=== PATIENT | male | born 1950 | race Caucasian/White ===

== ENCOUNTER → 2020-06-23 | Outpatient (CLI) | payer BC, MEDICARE ==
[~2020-06-23] MED LIST: AMLO10TA82 PO; ASP81CT PO; BNZ40T PO; HYDR50TA3 PO; MTP100TCR PO; WRF5T PO; [UNRECOGNIZED DRUG - OTHER]; coumadin; invanz; lovenox
== END ==
LOC: ORTHO 08:28
PROVIDERS: ATTEND Orthopaedic Surgery
DX: M17.11 Unilateral primary osteoarthritis, right knee (principal); I10 Essential (primary) hypertension
CPT/HCPCS: 99203

== ENCOUNTER → 2021-01-01 | Outpatient (CLI) | payer MEDICARE ==
--- NOTE | 2021-01-01 10:48 | Diagnostic Imaging Report ---
PROCEDURE: CT head without contrast. TECHNIQUE: Multiple contiguous axial images were obtained through the brain without the use of intravenous contrast. Auto Exposure Controls were utilized during the CT exam to meet ALARA standards for radiation dose reduction. INDICATION: Vascular headaches. There are no prior studies available for comparison. There is no mass, shift of midline or hemorrhage to suggest an acute intracranial abnormality. The normal tentorial blush is evident. The ventricles are not abnormally dilated. There are vague areas of low density in the periventricular white matter bilaterally. These findings are nonspecific but may be related to encephalomalacia from microvascular ischemia. Cortical atrophy is also seen. The degree of atrophy is consistent with the patient's age. The bone windows show no evidence for a skull fracture or for a destructive lesion. The orbits are symmetrical and within normal limits. There is prominent retention cyst in the floor of the right maxillary antrum. The sinuses are otherwise generally clear. IMPRESSION: 1. There is no evidence for an acute intracranial abnormality. 2. If clinical concern regarding an underlying abnormality persists, then MRI would be recommended for further study. 3. There are senescent changes including cortical atrophy and periventricular encephalomalacia. Dictated by: Dictated on workstation # [id number]
== END ==
LOC: RAD 09:53
PROVIDERS: ATTEND Internal Medicine
DX: G44.1 Vascular headache, not elsewhere classified (principal); G31.1 Senile degeneration of brain, not elsewhere classified; G93.89 Other specified disorders of brain
CPT/HCPCS: 70450

== ENCOUNTER 2021-02-06 20:44 | Emergency (ER) | payer MEDICARE, OTHER ==
[~2021-02-06] VITALS: Ht 172.7 cm; Wt 87.0 kg
[2021-02-06] MEDS ORDERED: TETANUS,DIPTH,PERTUSS P/F (BOOSTRIX) 0.5 ML VIAL IM ONE (21:45)
[2021-02-06] MEDS ORDERED: LIDOCAINE 1% INJ 20 ML 20 ML VIAL INJ ONE (21:45)
--- NOTE | 2021-02-06 21:51 | ED Fall/Injury ---
General Chief Complaint: Laceration Stated Complaint: FACIAL LAC Nursing Triage Note: Pt ambulatory to ED. Pt reports "face planting" on the road at approximately 1830 this evening. Pt reports taking two tylenol at 1930. Pt reports being concerned because pt takes blood thinners. Pt reports difficulty controlling bleeding. Pt has dressing in place at time of arrival and bleeding is controlled at this time. History of Present Illness Date Seen by Provider: February 06, 2021 Time Seen by Provider: 21:35 Initial Comments 70-year-old male was outside walking at approximately 1830 tonight when he stumbled and fell landing on his nose. He is on Xarelto after having a valve replacement on his heart approximately 2 years ago. The bleeding has persisted from the nose. He denies any loss of consciousness, seizure activity, headache vision changes, or nausea/vomiting. Occurred: this evening Severity: mild Injuries/Pain Location: face Loss of Consciousness: no loss of consciousness Associated Symptoms (Fall): Denies Symptoms; No Confusion, No Dizziness, No Lightheadedness, No Neck Pain, No Slurred Speech, No Trouble Walking, No Vision Changes Allergies and Home Medications Allergies Coded Allergies: No Known Drug Allergies (Unverified , 08/02/10) Home Medications Amlodipine Besylate 10 Mg Tablet, 1 EACH PO DAILY, (Reported) Aspirin 81 Mg Chew, 81 MG PO DAILY, (Reported) Cephalexin 500 Mg Tablet, 500 MG PO TID Prescribed by: MOUNA HERBERT on 02/06/212227 Warfarin Sodium 5 Mg Tablet, 1 EACH PO DAILY, (Reported) Patient Home Medication List Home Medication List Reviewed: Yes Review of Systems Review of Systems Constitutional: no symptoms reported, see HPI Psychiatric/Neurological: See HPI, Other (Abrasion and laceration to nose and forehead) All Other Systems Reviewed Negative Unless Noted: Yes Past Zrksirb-Chcumr-Qokdgx Hx Past Med/Social Hx: Reviewed Nursing Past Med/Soc Hx Patient Social History Alcohol Use: Denies Use 2nd Hand Smoke Exposure: No Recent Infectious Disease Expo: No Recent Hopitalizations: Yes Past Medical History Surgeries: Yes (CARDIAC CATH, VASECTOMY, valve replacement) Respiratory: No Cardiac: Yes (pacemaker) Neurological: Yes Reproductive Disorders: Yes Gastrointestinal: Yes Musculoskeletal: No Endocrine: No Psychosocial: No Blood Disorders: No Physical Exam Vital Signs Vital Signs - First Documented 02/06/21 21:16 Temp 37.0 Pulse 78 Resp 20 B/P (MAP) 121/83 (96) Pulse Ox 95 O2 Delivery Room Air Capillary Refill : Less Than 3 Seconds Height, Weight, BMI Height: '" Weight: lbs. oz. kg; 29.00 BMI Method:Stated General Appearance: WD/WN, no apparent distress HEENT: PERRL/EOMI, TMs normal, other (nares patent, bilat. ) Neck: non-tender, full range of motion, supple, normal inspection Cardiovascular: normal peripheral pulses, regular rate, rhythm, no murmur Respiratory: chest non-tender, lungs clear, normal breath sounds Gastrointestinal: normal bowel sounds, non tender, soft Extremities: normal range of motion, non-tender, normal inspection Neurologic/Psychiatric: boom storage II-XII nml as tested, no motor/sensory deficits, alert, normal mood/affect, oriented x 3 Skin: normal color, warm/dry, other (Superficial abrasion with trace bleeding to the tip of the nose and forehead, laceration to the bridge of the nose with active bleeding.) Sandra Coma Score Best Eye Response: (4) Open Spontaneously Best Verbal Response: (5) Oriented Best Motor Response: (6) Obeys Commands [place] Total: 15 Procedures/Interventions Wound Location: Nose Wound Length (cm): 1 Wound's Depth, Shape: into muscle (V shaped) Wound Explored: clean Irrigated w/ Saline (ccs): 500 Betadine Prep?: Yes Anesthesia: 1% Lidocaine Volume Anesthetic (ccs): 1 Suture: Ethlion Suture Size: 5-0 Number of Sutures: 4 Sterile Dressing Applied?: Yes Progress Wound well approximated, patient tolerated procedure well. No further bleeding. Bulky sterile dressing applied. Progress/Results/Core Measures Results/Orders My Orders Orders - MOUNA HERBERT Ct Head/Maxillofacial Wo (02/06/21 21:41) Dipht,Pertuss(Acell),Tet Adult (Boostrix (02/06/21 21:45) Lidocaine 1% Inj 20 Ml (Xylocaine 1% Inj (02/06/21 21:45) Rx-Cephalexin Capsule (Rx-Keflex Capsule (02/06/21 22:31) Medications Given in ED Current Medications Medications Dose Ordered Sig/Issac Route Start Time Stop Time Status Last Admin Dose Admin Diphtheria/ Tetanus/Acell Pertussis 0.5 ml ONCE ONCE IM 02/06/21 21:45 02/06/21 21:46 DC 02/06/21 22:25 0.5 ML Lidocaine HCl 20 ml ONCE ONCE INJ 02/06/21 21:45 02/06/21 21:46 DC 02/06/21 22:20 1.5 ML Vital Signs/I&O 02/06/21 21:16 Temp 37.0 Pulse 78 Resp 20 B/P (MAP) 121/83 (96) Pulse Ox 95 O2 Delivery Room Air Blood Pressure Mean: 96 Progress Progress Note : Time: 21:35 Progress Note Patient seen and evaluated, wound irrigated with normal saline. Will give tetanus vaccine. Discussed risk versus benefits of CT head and maxillofacial, patient and agreeable to this since he is on Xarelto. [address] results with the patient and his . Stressed the importance of follow-up with Dr. Jose or Dr. Zamora because of the fracture. Discharge instructions and return precautions/evaluation discussed with the patient. Diagnostic Imaging Diagonstic Imaging: CT Plain Films/CT/US/NM/MRI: facial bones, head Comments NAME: [facility] SOL[facility]ON [facility] REC#: [id number] PT STATUS: REG ER : 1950 PHYSICIAN: MOUNA HERBERT ADMIT DATE: 02/06/21/ER Signed Date of Exam:02/06/21 CT HEAD/MAXILLOFACIAL WO INDICATION: Fall with head and facial pain TECHNIQUE: Multiple contiguous axial images were obtained through the head and facial bones without the use of intravenous contrast. Auto Exposure Controls were utilized during the CT exam to meet ALARA standards for radiation dose reduction. COMPARISON is made to prior head CT of 01/01/2021 CT brain findings: There were no extra-axial fluid collections. No intracranial hemorrhage. No intracranial mass or mass effect. There are mild diffuse atrophic changes. There are patchy low-density changes in the deep white matter compatible with chronic ischemic change in this age group. There is no acute intracranial process. Calvarial windows show no calvarial fracture. CT maxillofacial findings: There are comminuted nasal fractures anteriorly. The remaining bony structures appear intact. There is a retention cyst or polyp in the right maxillary sinus. Remaining sinuses are clear. Orbital contents appear unremarkable. IMPRESSION: CT brain demonstrates chronic changes as above with no acute intracranial abnormality. CT maxillofacial demonstrates comminuted bilateral nasal fractures anteriorly. There are no other fractures visualized. There is a retention cyst versus polyp in the right maxillary sinus. Orbital contents appear unremarkable. Dictated by: Dictated on workstation # [id number] Dict: 02/06/212199 Trans: 02/06/212205 [facility] [id number] Interpreted by: REID HERNANDEZ MD Electronically signed by: REID HERNANDEZ MD 02/06/212205 Departure Impression Primary Impression: Fall Qualified Codes: W19.XXXA - Unspecified fall, initial encounter Additional Impressions: Nasal bone fx-open Qualified Codes: S02.2XXB - Fracture of nasal bones, initial encounter for open fracture Laceration of nose Qualified Codes: S01.21XA - Laceration without foreign body of nose, initial encounter Abrasion of face Qualified Codes: S00.81XA - Abrasion of other part of head, initial encounter Disposition: HOME, SELF-CARE Condition: Improved Departure-Patient Inst. Decision time for Depature: 22:20 Referrals: AL JOSE MD, MINDI DO (PCP/Family) Primary Care Physician MOUSTAPHA ZAMORA DDS Patient Instructions: Skin Abrasions (DC), Laceration Repair With Karine (DC), Laceration Repair With Glue (DC), Facial Fracture Add. Discharge Instructions: Call Dr. Jose or Dr. Zamora's office tomorrow for a follow-up appointment. Take antibiotics as prescribed. Apply triple antibiotic ointment to the abrasions. Continue all of your home medications. Apply ice to your nose for 20 minutes every 2 hours for swelling or pain. Alternate between Tylenol 650 mg and ibuprofen 600 mg every 4 hours for pain. Keep the wounds clean and dry, you may apply a Band-Aid or dressing as needed. You may shower as normal, clean the wound with peroxide after showering. Do not submerge the wounds in standing water such as a pool, hot tub or persaud. Return to the emergency department in 7 days for suture removal or see your primary care provider. Watch for signs of infection: Redness, swelling, fever, discolored drainage or foul-smelling drainage. Return to the emergency department for new, urgent healthcare needs. All discharge instructions reviewed with patient and/or family. Voiced understanding. Scripts Cephalexin (Cephalexin) 500 Mg Tablet 500 MG PO TID, #21 TAB 0 Refills Prov: MOUNA HERBERT 02/06/21 MOUNA HERBERT February 06, 2021 21:51
--- NOTE | 2021-02-06 22:06 | Diagnostic Imaging Report ---
INDICATION: Fall with head and facial pain TECHNIQUE: Multiple contiguous axial images were obtained through the head and facial bones without the use of intravenous contrast. Auto Exposure Controls were utilized during the CT exam to meet ALARA standards for radiation dose reduction. COMPARISON is made to prior head CT of 01/01/2021 CT brain findings: There were no extra-axial fluid collections. No intracranial hemorrhage. No intracranial mass or mass effect. There are mild diffuse atrophic changes. There are patchy low-density changes in the deep white matter compatible with chronic ischemic change in this age group. There is no acute intracranial process. Calvarial windows show no calvarial fracture. CT maxillofacial findings: There are comminuted nasal fractures anteriorly. The remaining bony structures appear intact. There is a retention cyst or polyp in the right maxillary sinus. Remaining sinuses are clear. Orbital contents appear unremarkable. IMPRESSION: CT brain demonstrates chronic changes as above with no acute intracranial abnormality. CT maxillofacial demonstrates comminuted bilateral nasal fractures anteriorly. There are no other fractures visualized. There is a retention cyst versus polyp in the right maxillary sinus. Orbital contents appear unremarkable. Dictated by: Dictated on workstation # [id number]
[2021-02-06] MEDS ORDERED: CEPH500T PO (22:28)
[2021-02-06 22:30] VITALS: BP 121/83
[2021-02-06] MEDS ORDERED: RX-CEPHALEXIN (KEFLEX) 250 MG CAP PPK#4 PO STA (22:31)
== END 2021-02-06 22:30 | disposition home or self-care (01) ==
LOC: EDUNIT# 20:44 → ER 20:46
DX: S02.2XXB Fracture of nasal bones, initial encounter for open fracture (principal); Z23 Encounter for immunization; Z79.01 Long term (current) use of anticoagulants; Z79.82 Long term (current) use of aspirin; W01.0XXA Fall on same level from slipping, tripping and stumbling without subsequent striking against object, initial encounter
CPT/HCPCS: 70450; 70486; 90715

== ENCOUNTER 2021-02-13 12:29 | Emergency (ER) | payer MEDICARE, OTHER ==
[~2021-02-13] VITALS: Ht 172 cm; Wt 88.0 kg
[~2021-02-13 12:29] MED LIST changes: +CEPH500T PO
== END 2021-02-13 13:06 | disposition home or self-care (01) ==
LOC: EDUNIT# 12:29 → ER 12:30
DX: Z48.02 Encounter for removal of sutures (principal)

== ENCOUNTER → 2021-06-13 | Outpatient (CLI) | payer MEDICARE, OTHER ==
--- NOTE | 2021-06-13 15:05 | Diagnostic Imaging Report ---
INDICATION: Arrhythmia. EXAMINATION: Portable chest at 2:36 p.m. FINDINGS: There is a dual-chamber pacemaker with ICD. Heart size and pulmonary vascularity are normal. There is minimal scarring at the right costophrenic angle. There are postoperative changes from aortic valve replacement. IMPRESSION: Postsurgical changes in the chest. There are no infiltrates, effusions, or pneumothoraces. Dictated by: Dictated on workstation # [id number]
--- NOTE | 2021-06-13 16:26 | Diagnostic Imaging Report ---
PROCEDURE: MR imaging of the brain without contrast. TECHNIQUE: Multiplanar, multisequence MR imaging of the brain was performed without contrast. INDICATION: Memory problems. COMPARISON: 02/06/2021. FINDINGS: No acute ischemia, mass, or hemorrhage. Focal and confluent T2 hyperintense signal is seen throughout the periventricular and subcortical white matter. 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 The ventricles and cortical sulci are mildly prominent. The basilar cisterns are symmetric and unremarkable. The sellar and suprasellar regions have a normal appearance. The brainstem and posterior fossa are unremarkable. A mucous retention cyst is seen in the right maxillary sinus. Small bilateral mastoid effusions are present. The globes and orbits are symmetric and unremarkable. The scalp and calvarium have a normal appearance. IMPRESSION: 1. No acute ischemia, mass, or hemorrhage. 2. Chronic microvascular disease throughout the periventricular and subcortical white matter. 3. Generalized parenchymal volume loss. 4. 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 Dictated by: Dictated on workstation # [id number]
== END ==
LOC: RAD 14:45
PROVIDERS: ATTEND Internal Medicine
DX: G31.9 Degenerative disease of nervous system, unspecified (principal); G91.2 (Idiopathic) normal pressure hydrocephalus; I67.89 Other cerebrovascular disease; I49.9 Cardiac arrhythmia, unspecified
CPT/HCPCS: 70551; 71045

== ENCOUNTER 2022-01-23 10:37 | Outpatient (RCR) | payer MEDICARE, OTHER | END 2022-02-02 | disposition home or self-care (01) | PROVIDERS: ATTEND Internal Medicine | DX: R26.81 Unsteadiness on feet (principal) ==

== ENCOUNTER 2022-02-06 11:20 | Outpatient (RCR) | payer MEDICARE, OTHER | END 2022-02-13 09:32 | disposition home or self-care (01) | PROVIDERS: ATTEND Internal Medicine | DX: R26.81 Unsteadiness on feet (principal) ==

== ENCOUNTER 2022-03-11 10:49 | Outpatient (CLI) | payer MEDICARE, OTHER | END 2022-03-11 11:10 | LOC: SLEEP 10:49 | PROVIDERS: ATTEND Otolaryngology Otolaryngology/Facial Plastic Surgery | DX: G47.33 Obstructive sleep apnea (adult) (pediatric) (principal) | CPT/HCPCS: G0399 ==

== ENCOUNTER 2022-09-08 11:18 | Observation (INO) | payer MEDICARE, OTHER ==
[~2022-09-08] VITALS: Ht 175.3 cm; Wt 85.0 kg
[2022-09-08 11:53] LABS: BASOPHILS % (AUTO) 0 % (0-10); EOSINOPHILS # (AUTO) 0.1 10^3/uL (0.0-0.3); EOSINOPHILS % (AUTO) 1 % (0-10); HEMATOCRIT 47 % (40-54); HEMOGLOBIN 16.6 g/dL (13.3-17.7); LYMPHOCYTES # (AUTO) 1.4 10^3/uL (1.0-4.0); LYMPHOCYTES % (AUTO) 16 % (12-44); MEAN CORPUSCULAR HEMOGLOBIN 32 pg (25-34); MEAN CORPUSCULAR HGB CONC 35 g/dL (32-36); MEAN CORPUSCULAR VOLUME 92 fL (80-99); MEAN PLATELET VOLUME 9.7 fL (9.0-12.2); MONOCYTES # (AUTO) 0.4 10^3/uL (0.0-1.0); MONOCYTES % (AUTO) 5 % (0-12); NEUTROPHILS # (AUTO) 6.7 10^3/uL (1.8-7.8); NEUTROPHILS % (AUTO) 76 % (42-75); PLATELET COUNT 211 10^3/uL (130-400); WHITE BLOOD COUNT 8.7 10^3/uL (4.3-11.0)
[2022-09-08 12:05] LABS: INR 1.7 (0.8-1.4); PROTHROMBIN TIME PATIENT 20.6 SEC (12.2-14.7)
[2022-09-08 12:06] LABS: ALBUMIN 3.9 GM/DL (3.2-4.5); POTASSIUM 4.1 MMOL/L (3.6-5.0)
[2022-09-08 12:07] LABS: CALCIUM 9.5 MG/DL (8.5-10.1)
[2022-09-08 12:09] LABS: TOTAL PROTEIN 6.8 GM/DL (6.4-8.2)
[2022-09-08 12:10] LABS: BILIRUBIN,TOTAL 1.5 MG/DL (0.1-1.0)
[2022-09-08 12:12] LABS: CREATININE SERUM 1.73 MG/DL (0.60-1.30)
[2022-09-08 12:15] LABS: MAGNESIUM 1.9 MG/DL (1.6-2.4)
--- NOTE | 2022-09-08 12:15 | ED General ---
General Chief Complaint: Dizziness/Syncope Stated Complaint: WEAKNESS/SYNCOPAL EPISODE/LOW HEART RATE Nursing Triage Note: PT WAS AT [facility] AND HAD A SYNCOPAL EPISODE WITH HEART RATE IN THE 40'S, 3 VALVE REPLACEMENTS, FLU A 08-30 Source of Information: Patient Exam Limitations: No Limitations History of Present Illness Date Seen by Provider: Sep 08, 2022 Time Seen by Provider: 12:00 Initial Comments 72-year-old male with history of valvular heart disease with a pacemaker presents for possible syncopal episode. He was standing in voodoo and became dizzy, sat down. He had been sitting for about 10 minutes then he had a brief period where he appeared to be unresponsive, staring ahead and may pass out. He states he remembers the entire event but he was not responding to his family according to their report. This lasted about a minute to a minute and a half per his daughter's report. He denies any chest pain, shortness of breath. He states he feels back to normal at present. Notably he has had influenza A "since ." He is still feeling generally weak and having body aches. He does endorse decreased p.o. intake. Allergies and Home Medications Allergies Coded Allergies: No Known Drug Allergies (Unverified , 08/02/10) Patient Home Medication List Home Medication List Reviewed: Yes Amlodipine Besylate (Norvasc Tablet) 10 Mg Tablet, 1 EACH PO DAILY, (Reported) Entered as Reported by: FLAQUITO THOMASON on 08/02/105 Aspirin (Aspirin 81 Mg Chew Tab) 81 Mg Chew, 81 MG PO DAILY, (Reported) Entered as Reported by: FLAQUITO THOMASON on 08/02/105 Cephalexin (Cephalexin) 500 Mg Tablet, 500 MG PO TID Prescribed by: MOUNA HERBERT on 02/06/21 2228 Warfarin Sodium (Coumadin) 5 Mg Tablet, 1 EACH PO DAILY, (Reported) Entered as Reported by: REILLY TORRES on 09/23/10 1341 Review of Systems Review of Systems Constitutional: weakness EENTM: no symptoms reported Respiratory: no symptoms reported Cardiovascular: syncope Gastrointestinal: no symptoms reported Genitourinary: no symptoms reported Musculoskeletal: no symptoms reported Skin: no symptoms reported Psychiatric/Neurological: No Symptoms Reported Hematologic/Lymphatic: No Symptoms Reported Immunological/Allergic: no symptoms reported Past Jougagq-Ytrwsf-Rlxipg Hx Patient Social History Tobacco Use?: No Substance use?: No Alcohol Use?: No Immunizations Up To Date Second COVID19 Vaccination Esdras: YES Past Medical History Surgery/Hospitalization HX: 2 HEART VALVES, PACEMEKER, HYPERTENSION, TIA'S Surgeries: Yes (CARDIAC CATH, VASECTOMY, valve replacement) Respiratory: No Cardiac: Yes (pacemaker) Neurological: Yes Reproductive Disorders: Yes Gastrointestinal: Yes Musculoskeletal: No Endocrine: No Psychosocial: No Blood Disorders: No Family Medical History Reviewed Nursing Family Hx No Pertinent Family Hx Physical Exam Vital Signs Vital Signs - First Documented 09/08/22 11:34 Temp 35.9 Pulse 53 Resp 16 B/P (MAP) 99/67 (78) Pulse Ox 97 O2 Delivery Room Air Capillary Refill : Less Than 3 Seconds Height, Weight, BMI Height: '" Weight: lbs. oz. kg; 28.00 BMI Method:Stated General Appearance: No Apparent Distress, WD/WN HEENT: PERRL/EOMI, Normal ENT Inspection, Pharynx Normal Neck: Full Range of Motion, Non Tender, Supple Respiratory: Chest Non Tender, Lungs Clear, Normal Breath Sounds, No Accessory Muscle Use, No Respiratory Distress Cardiovascular: Regular Rate, Rhythm, Systolic Murmur, Other (paced rhythm, frequent PVCs) Gastrointestinal: Normal Bowel Sounds, No Organomegaly, No Pulsatile Mass, Non Tender, Soft Back: Normal Inspection, No CVA Tenderness, No Vertebral Tenderness Extremity: Normal Capillary Refill, Normal Inspection, Normal Range of Motion, Non Tender, No Calf Tenderness Neurologic/Psychiatric: Alert, Oriented x3, No Motor/Sensory Deficits, Normal Mood/Affect, 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 Norm as Tested Skin: Normal Color, Warm/Dry Lymphatic: No Adenopathy Procedures/Interventions Suture Size: 5-0 Progress/Results/Core Measures Suspected Sepsis SIRS Temperature: Pulse: 53 Respiratory Rate: 16 Laboratory Tests 09/08/22 11:44: White Blood Count 8.7 Blood Pressure 99 /67 Mean: 78 Laboratory Tests 09/08/22 11:44: Creatinine 1.73H, INR Comment 1.7H, Platelet Count 211, Total Bilirubin 1.5H Results/Orders Lab Results Laboratory Tests Test 09/08/22 11:44 09/08/22 13:40 Range/Units White Blood Count 8.7 4.3-11.0 10^3/uL Red Blood Count 5.15 4.30-5.52 10^6/uL Hemoglobin 16.6 13.3-17.7 g/dL Hematocrit 47 40-54 % Mean Corpuscular Volume 92 80-99 fL Mean Corpuscular Hemoglobin 32 25-34 pg Mean Corpuscular Hemoglobin Concent 35 32-36 g/dL Red Cell Distribution Width 13.8 10.0-14.5 % Platelet Count 211 130-400 10^3/uL Mean Platelet Volume 9.7 9.0-12.2 fL Immature Granulocyte % (Auto) 2 % Neutrophils (%) (Auto) 76 H 42-75 % Lymphocytes (%) (Auto) 16 12-44 % Monocytes (%) (Auto) 5 0-12 % Eosinophils (%) (Auto) 1 0-10 % Basophils (%) (Auto) 0 0-10 % Neutrophils # (Auto) 6.7 1.8-7.8 10^3/uL Lymphocytes # (Auto) 1.4 1.0-4.0 10^3/uL Monocytes # (Auto) 0.4 0.0-1.0 10^3/uL Eosinophils # (Auto) 0.1 0.0-0.3 10^3/uL Basophils # (Auto) 0.0 0.0-0.1 10^3/uL Immature Granulocyte # (Auto) 0.2 H 0.0-0.1 10^3/uL Prothrombin Time 20.6 H 12.2-14.7 SEC INR Comment 1.7 H 0.8-1.4 Activated Partial Thromboplast Time 32 24-35 SEC Sodium Level 138 135-145 MMOL/L Potassium Level 4.1 3.6-5.0 MMOL/L Chloride Level 105 98-107 MMOL/L Carbon Dioxide Level 20 L 21-32 MMOL/L Anion Gap 13 5-14 MMOL/L Blood Urea Nitrogen 26 H 7-18 MG/DL Creatinine 1.73 H 0.60-1.30 MG/DL Estimat Glomerular Filtration Rate 41 BUN/Creatinine Ratio 15 Glucose Level 133 H 70-105 MG/DL Calcium Level 9.5 8.5-10.1 MG/DL Corrected Calcium 9.6 8.5-10.1 MG/DL Magnesium Level 1.9 1.6-2.4 MG/DL Total Bilirubin 1.5 H 0.1-1.0 MG/DL Aspartate Amino Transf (AST/SGOT) 17 5-34 U/L Alanine Aminotransferase (ALT/SGPT) 21 0-55 U/L Alkaline Phosphatase 71 40-136 U/L Troponin I 0.035 H <0.028 NG/ML Total Protein 6.8 6.4-8.2 GM/DL Albumin 3.9 3.2-4.5 GM/DL My Orders Orders - CHERIE GODINEZ DO Ekg Tracing (09/08/22 11:31) Ns Iv 500 Ml (Sodium Chloride 0.9%) (09/08/22 12:15) Troponin I [place] (09/08/22 13:40) Ed Admission (Communication) (09/08/22 13:45) Vital Signs/I&O 09/08/22 11:34 Temp 35.9 Pulse 53 Resp 16 B/P (MAP) 99/67 (78) Pulse Ox 97 O2 Delivery Room Air Capillary Refill : Less Than 3 Seconds Blood Pressure Mean: 78 ECG EKG : Comment atrial paced rhythm 71 bpm. Wide QRS, prolonged Qtc. Left axis deviation. PVCs. No STEMI. Critical Care Note Critical Care Total Time (minutes) 45 Departure Communication (Admissions) Patient is borderline hypotensive in the 90s systolic. Patient remained despite 500 cc IV fluid bolus. Cautious with IV fluids due to his significant valvular disease. He has a paced rhythm with frequent PVCs. His troponin is slightly elevated, no evidence of this in the past. Pacemaker was interrogated and negative and his EKG is again a paced rhythm with no evidence for ischemia. Electrolytes are normal. Chest x-ray shows no evidence for pneumonia or other acute process. I spoke to Dr. Kaye agrees to meet the patient to the hospital for observation. Patient is agreeable to this plan of care. Impression Primary Impression: Syncope Qualified Codes: R55 - Syncope and collapse Additional Impressions: Elevated troponin I level Hypotension Qualified Codes: I95.9 - Hypotension, unspecified Disposition: 09 ADMITTED INPATIENT Departure-Patient Inst. Referrals: DEE KAYE DO (PCP/Family) Primary Care Physician CHERIE GODINEZ DO Sep 08, 2022 12:15
--- NOTE | 2022-09-08 12:16 | Diagnostic Imaging Report ---
CHEST 1 VIEW, AP/PA ONLY Indication: Chest pain. Comparison: 06/13/2021 Findings: No focal airspace disease in the visualized lungs. No pleural effusion or pneumothorax. Stable cardiomegaly with TAVR. Right pectoral dual chamber ICD is unchanged. Impression: 1. No acute cardiopulmonary process by portable radiography. Dictated by: Dictated on workstation # [id number]
[2022-09-08] MEDS: NS IV 500 ML 500 ML IV SCH ×3 (12:26→17:29)
--- NOTE | 2022-09-08 13:40 | History & Physical ---
History of Present Illness HPI/Chief Complaint CC: Syncope with bradycardia HPI: This is a 72yoWM clinic patient of mine for many years who has a h/o valve replacement along with stents maintained on Coumadin who sees Dr Saleh in [place] who presents to the ER after syncope at [facility]. His daughter and granddaughter were with him during this syncopal episode. He has had diarrhea the past few months along with fecal incontinence. Patient will require close monitoring at [facility] and stool studies will be ordered and we will monitor INR closely. Elevated troponin noted. Source: patient Exam Limitations: no limitations Date Seen 09/08/22 Time Seen by a Provider: 13:30 Attending Physician Catalina Silva DO PCP Admitting Physician: Attending Physician: Referring Physician Date of Admission Home Medications & Allergies Home Medications Reviewed patient Home Medication Reconciliation performed by pharmacy medication reconciliations medical equipment repair technician and/or nursing. Patients Allergies have been reviewed. Allergies Allergies Coded Allergies No Known Drug Allergies ([id number]/28/10) Past Kolgdql-Hgysjl-Jnqlle Hx Past Med/Social Hx: Reviewed Nursing Past Med/Soc Hx, Reviewed and Corrections made Patient Social History Marrital Status: Employed/Student: retired Alcohol Use: Denies Use Smoking Status: Never a Smoker 2nd Hand Smoke Exposure: No Recent Foreign Travel: No Contact w/other who traveled: No Recent Hopitalizations: Yes Past Medical History Cardiac: Atrial Fibrillation, Cardiomyopathy, Chronic Edema/Swelling, Coronary Artery Disease, High Cholesterol, Hypertension, Valvular Heart Disease Neurological: Dementia Reproductive: Yes Musculoskeletal: Arthritis, Gout History of Blood Disorders: No Family History Reviewed Nursing Family Hx No Pertinent Family Hx Review of Systems Constitutional: see HPI, dizziness, malaise, weakness EENTM: no symptoms reported Respiratory: no symptoms reported Cardiovascular: no symptoms reported Gastrointestinal: no symptoms reported Genitourinary: no symptoms reported Skin: no symptoms reported Psychiatric/Neurological: No Symptoms Reported All Other Systems Reviewed Negative Unless Noted: Yes Physical Exam Physical Exam Vital Signs Vital Signs - First Documented 09/08/22 11:34 Temp 35.9 Pulse 53 Resp 16 B/P (MAP) 99/67 (78) Pulse Ox 97 O2 Delivery Room Air Capillary Refill : Less Than 3 Seconds Height, Weight, BMI Height: '" Weight: lbs. oz. kg; 28.00 BMI Method:Stated General Appearance: No Apparent Distress, WD/WN, Chronically ill HEENT: PERRL/EOMI, Normal ENT Inspection, Pharynx Normal Neck: Full Range of Motion, Non Tender, Supple Respiratory: Chest Non Tender, Lungs Clear, Normal Breath Sounds, No Accessory Muscle Use, No Respiratory Distress Cardiovascular: Regular Rate, Rhythm, Systolic Murmur, Other (paced rhythm, frequent PVCs) Gastrointestinal: Normal Bowel Sounds, No Organomegaly, No Pulsatile Mass, Non Tender, Soft Back: Normal Inspection, No CVA Tenderness, No Vertebral Tenderness Extremity: Normal Capillary Refill, Normal Inspection, Normal Range of Motion, Non Tender, No Calf Tenderness Neurologic/Psychiatric: Alert, Oriented x3, No Motor/Sensory Deficits, Normal 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 Assessment/Plan Admission Diagnosis Assessment: Syncope Volume depletion h/o diarrhea for several weeks Bradycardia CAD Valvular heart disease s/p repair Dementia Type 2 NSTEMI Plan: Monitor closely IVF gently Stool studies Cardiology consult Admission Status: Observation Clinical Quality Measures AMI/AHF: ASA po Prior to arrival: CATALINA Pabon DO Sep 08, 2022 13:40
[2022-09-08] MEDS ORDERED: ONDANSETRON 4 MG (ZOFRAN) ORAL DISSOLVE TAB PO PRN (15:30)
[2022-09-08] MEDS ORDERED: ACETAMINOPHEN 325 MG TABLET PO PRN (15:30)
[2022-09-08] MEDS ORDERED: diphenhydrAMINE 50 MG/ML INJ (BENADRYL) IVP PRN (15:30)
[2022-09-08] MEDS ORDERED: polyethylene glycoL POWDER 17 GM (MIRALAX) PACK PO PRN (15:30)
[2022-09-08] MEDS ORDERED: diphenhydrAMINE 25 MG TAB (BENADRYL) PO PRN (15:30)
[2022-09-08] MEDS ORDERED: HYDROmorphone 2 MG/ML VIAL (DILAUDID) IV PRN (15:30)
[2022-09-08] MEDS ORDERED: LACTULOSE SYRUP 10GM/15ML (ENULOSE) 30ML UDC PO PRN (15:30)
[2022-09-08] MEDS ORDERED: MILK OF MAGNESIA 400 MG/5 ML 30 ML UDC PO PRN (15:30)
[2022-09-08] MEDS ORDERED: CALCIUM CARBONATE 500 MG (TUMS) TAB.CHEW PO PRN (15:30)
[2022-09-08] MEDS ORDERED: MELATONIN 3 MG TABLET PO PRN (15:30)
[2022-09-08] MEDS ORDERED: ONDANSETRON 4 MG/2 ML (SDV) Z0FRAN IV PRN (15:30)
[2022-09-08] MEDS ORDERED: LORazepam 0.5 MG (ATIVAN) TABLET PO PRN (15:30)
[2022-09-08] MEDS ORDERED: ANTACID SUSP 30 ML UDC (MYLANTA) PO PRN (15:30)
[2022-09-08] MEDS ORDERED: BISACODYL 10 MG SUPP (DULCOLAX) PR PRN (15:30)
--- NOTE | 2022-09-08 15:52 | Consultation-Cardiology ---
HPI-Cardiology Cardiology Consultation: Date of Consultation 09/08/22 Time Seen by a Provider: 15:45 Date of Admission Attending Physician Catalina Silva DO Admitting Physician Admitting Physician: Catalina Silva DO Attending Physician: Catalina Silva DO Consulting Physician NEAL BECERRA MD, FACP, FACC, [facility], CCDS Physician requesting consult: Dr Silva HPI: Chief Complaint: Reason for Card consult: Near syncope 72 yo man who has had 2 AVRs (per him and his family) in the last several years (last in or around 2017) for a h/o bicuspid aortic valve. He reports a weak heart and has been on heart failure meds that are managed by his kiss setter hand Dr Castro in [place], [place]. He reports a h/o pacemaker-ICD. States that an attempt was made to give him a "three-wire" pacemaker but the third wire was not functional because that part of the heart was scarred. Today, while standing in the tenriism, he became dizzy, had to sit down and was then disconnected verbally with his company although the says he knew what was going on. He does not report cp or palp or syncope or shortness of breath or swelling Review of Systems-Cardiology Review of Systems Constitutional: malaise; No weight loss, No weight gain Eyes: No vision change Ears/Nose/Throat: No ear discharge, No nasal drainage, No recent hearing loss Respiratory: As described under HPI Cardiovascular: As described under HPI Gastrointestinal: No diarrhea, No nausea, No vomiting Genitourinary: No dysuria, No hematuria, No urine frequency changes Musculoskeletal: No back pain, No joint pain Skin: No rash, No ulcerations Psychiatric/Neurological: As described under HPI Hematologic: No bleeding abnormalities WIM-Kcahzz-Xqlqmp Hx Patient Social History 2nd Hand Smoke Exposure: No Have you traveled recently?: No Alcohol Use?: No Past Medical History PMH As described under Assessment. Family Medical History Family Medical History: He does not report fam h/o premature CAD or SCD Allergies and Home Medications Allergies Coded Allergies: No Known Drug Allergies (Unverified , 08/02/10) Patient Home Medication List Home Medication List Reviewed: Yes Amlodipine Besylate (Norvasc Tablet) 10 Mg Tablet, 1 EACH PO DAILY, (Reported) Entered as Reported by: FLAQUITO THOMASON on 08/02/10 0006 Aspirin (Aspirin 81 Mg Chew Tab) 81 Mg Chew, 81 MG PO DAILY, (Reported) Entered as Reported by: FLAQUITO THOMASON on 08/02/10 0006 Cephalexin (Cephalexin) 500 Mg Tablet, 500 MG PO TID Prescribed by: MOUNA HERBERT on 02/06/21 2228 Warfarin Sodium (Coumadin) 5 Mg Tablet, 1 EACH PO DAILY, (Reported) Entered as Reported by: REILLY TORRES on 09/23/10 1341 Physical Exam-Cardiology Physical Exam Vital Signs/I&O 09/08/22 11:34 Temp 35.9 Pulse 53 Resp 16 B/P (MAP) 99/67 (78) Pulse Ox 97 O2 Delivery Room Air Capillary Refill : Less Than 3 Seconds Constitutional: AAO x 3, well-developed, well-nourished HEENT: EOMI, hearing is well preserved; No xanthelasmas are seen Neck: carotid pulses are 2 + bilaterally, with good upstrokes Respiratory: No accessory muscle use; chest expansion is symmetric, chest is bilaterally symmetric, other (fair to good air entry bilaterally) Cardiovascular: regular rate-rhythm, S1 and S2, systolic murmur (2/6 MSM at card base) Gastrointestinal: No tender; soft; No guarding, No rebound; audible bowel sounds Extremities: No clubbing, No cyanosis, No significant edema Neurologic/Psychiatric: oriented x 3, other (moves all limbs equally) Skin: No rash on exposed areas, No ulcerations on exposed areas Data Review Labs Laboratory Tests 09/08/22 11:44: White Blood Count 8.7, Red Blood Count 5.15, Hemoglobin 16.6, Hematocrit 47, Mean Corpuscular Volume 92, Mean Corpuscular Hemoglobin 32, Mean Corpuscular Hemoglobin Concent 35, Red Cell Distribution Width 13.8, Platelet Count 211, Mean Platelet Volume 9.7, Immature Granulocyte % (Auto) 2, Neutrophils (%) (Auto) 76H, Lymphocytes (%) (Auto) 16, Monocytes (%) (Auto) 5, Eosinophils (%) (Auto) 1, Basophils (%) (Auto) 0, Neutrophils # (Auto) 6.7, Lymphocytes # (Auto) 1.4, Monocytes # (Auto) 0.4, Eosinophils # (Auto) 0.1, Basophils # (Auto) 0.0, Immature Granulocyte # (Auto) 0.2H, Prothrombin Time 20.6H, INR Comment 1.7H, Activated Partial Thromboplast Time 32, Sodium Level 138, Potassium Level 4.1, Chloride Level 105, Carbon Dioxide Level 20L, Anion Gap 13, Blood Urea Nitrogen 26H, Creatinine 1.73H, Estimat Glomerular Filtration Rate 41, BUN/Creatinine Ratio 15, Glucose Level 133H, Calcium Level 9.5, Corrected Calcium 9.6, Magnesium Level 1.9, Total Bilirubin 1.5H, Aspartate Amino Transf (AST/SGOT) 17, Alanine Aminotransferase (ALT/SGPT) 21, Alkaline Phosphatase 71, Troponin I 0.035H, Total Protein 6.8, Albumin 3.9 09/08/22 13:40: Troponin I < 0.028 A/P-Cardiology Assessment/Admission Diagnosis Near syncope - likely due to postural hypotension (has relatively low bp even supine) - device interrogation today has not indicated any significant arrhythmia (as reported to me on the phone by the ER physician) H/o bioprosthetic AVR x 2 - managed by his kiss setter hand Dr Castro in [place], [place] H/o dilated cardiomyopathy - managed by his kiss setter hand Ch warfarin therapy the reason for which is not known to the patient - managed by his kiss setter hand Discussion and Recomendations * I have communicated with his pcp Dr Silva who is aware of his meds * We recommend that heart failure meds that can lower bp be reduced by half * We recommend monitoring of bp * We recommend optimization of warfarin therapy to the indication for which it has been initiated. If it is for PAF, the INR should be kept between 2-3 * We are trying to obtain cardiac records * I have communicated all of the above recs to Dr Silva Clinical Quality Measures AMI/AHF: ASA po Prior to arrival: NEAL Quiroz MD [facility] CCDS Sep 08, 2022 15:52
[2022-09-08 16:00] VITALS: BP 103/67
[2022-09-08] MEDS ORDERED: FLU QUAD HIGH DOSE 240 MCG/0.7 ML 2022-23 (FLUZONE) IM ONE (17:00)
[2022-09-08] MEDS: NS IV 1000 ML 1,000 ML IV SCH (17:03)
[2022-09-08] MEDS ORDERED: warFARin 5 MG (COUMADIN) TAB PO SCH (18:00)
[2022-09-08] MEDS ORDERED: warFARin 1 MG (COUMADIN) TAB PO SCH (18:00)
[2022-09-08 19:46] VITALS: BP 116/102
[2022-09-08 19:54] VITALS: BP 103/68
[2022-09-08] MEDS: SENNOSIDES 8.6 MG (SENOKOT) TAB PO SCH (19:54)
[2022-09-08] MEDS: DOCUSATE SODIUM 100 MG (COLACE) CAP PO SCH (19:54)
[2022-09-08] MEDS ORDERED: RT-ALBUTEROL SULF 2.5 MG/3 ML PRE-MIX VIAL INH PRN (20:00)
[2022-09-08 23:45] VITALS: BP 108/64
[2022-09-09] VITALS (7 sets, daily range): BP systolic 98–120; BP diastolic 70–89
[2022-09-09 05:34] LABS: ALBUMIN 3.5 GM/DL (3.2-4.5); CALCIUM 9.3 MG/DL (8.5-10.1); CREATININE SERUM 1.42 MG/DL (0.60-1.30); POTASSIUM 3.9 MMOL/L (3.6-5.0)
[2022-09-09 06:02] LABS: INR 2.3 (0.8-1.4); PROTHROMBIN TIME PATIENT 25.6 SEC (12.2-14.7)
[2022-09-09] MEDS: NS IV 1000 ML 1,000 ML IV SCH (06:15)
[2022-09-09 06:54] LABS: BASOPHILS % (AUTO) 0 % (0-10); EOSINOPHILS # (AUTO) 0.1 10^3/uL (0.0-0.3); EOSINOPHILS % (AUTO) 1 % (0-10); HEMATOCRIT 45 % (40-54); HEMOGLOBIN 15.6 g/dL (13.3-17.7); LYMPHOCYTES # (AUTO) 1.7 10^3/uL (1.0-4.0); LYMPHOCYTES % (AUTO) 26 % (12-44); MEAN CORPUSCULAR HEMOGLOBIN 32 pg (25-34); MEAN CORPUSCULAR HGB CONC 35 g/dL (32-36); MEAN CORPUSCULAR VOLUME 92 fL (80-99); MEAN PLATELET VOLUME 9.8 fL (9.0-12.2); MONOCYTES # (AUTO) 0.4 10^3/uL (0.0-1.0); MONOCYTES % (AUTO) 6 % (0-12); NEUTROPHILS # (AUTO) 4.2 10^3/uL (1.8-7.8); NEUTROPHILS % (AUTO) 67 % (42-75); PLATELET COUNT 211 10^3/uL (130-400); WHITE BLOOD COUNT 6.4 10^3/uL (4.3-11.0)
[2022-09-09] MEDS: DOCUSATE SODIUM 100 MG (COLACE) CAP PO SCH (09:11)
[2022-09-09] MEDS: SENNOSIDES 8.6 MG (SENOKOT) TAB PO SCH (09:12)
--- NOTE | 2022-09-09 09:16 | Occupational Therapy Eval ---
OT Evaluation-General/PLF Medical Diagnosis Admission Date Sep 08, 2022 at 13:47 Medical Diagnosis: syncope Onset Date: Sep 08, 2022 Therapy Diagnosis Therapy Diagnosis: n/a Precautions Precautions/Isolations: Standard Precautions Referral Physician: Ricardo Black Reason: Evaluation/Treatment Medical History Additional Medical History valve replacement, stents, afib, CAD, cardiomyopathy, HTN, dementia, arthritis, GOUT Current History ED after syncopal episode at [facility] Social History Home: Single Level Current Living Status: Spouse ADL-Prior Level of Function SCALE: Activities may be completed with or without assistive devices. 7-Kaviuqupua-fezerva completes the activity by him/herself with no assistance from a helper. 5-Set-up or Clean-up Assistance-helper sets up or cleans up; patient completes activity. Benson assists only prior to or following the activity. 4-Supervision or Touching Assistance-helper provides verbal cues and/or touching/steadying and/or contact guard assistance as patient completes activity. Assistance may be provided throughout the activity or intermittently. 3-Partial/Moderate Assistance-helper does LESS THAN HALF the effort. Benson lifts, holds or supports trunk or limbs, but provides less than half the effort. 2-Substantial/Maximal Assistance-helper does MORE THAN HALF the effort. Benson lifts or holds trunk or limbs and provides more than half the effort. 1-Bemoygixo-xboify does ALL the effort. Patient does none of the effort to complete the activity. Or, the assistance of 2 or more helpers is required for the patient to complete the activity. If activity was not attempted, code reason: 7-Patient Refused. 9-Not Applicable-not attempted and the patient did not perform the activity before the current illness, exacerbation or injury. 10-Not Attempted due to Environmental Limitations-(lack of equipment, weather restraints, etc.). 88-Not Attempted due to Medical Conditions or Safety Concerns. ADL PLOF Comments Pt reports IND with ADLs and functional mobility at PLOF, no AD. Pt's spouse indicates pt has been unsteady on his feet for a little while. Self Care: Independent Functional Cognition: Independent OT Current Status Subjective Pt standing at EOB, spouse present. Pt and spouse report no concerns with pt's ability to complete ADLs upon returning home. Mental Status/Objective Patient Orientation: Person, Place, Time, Situation Attachments: IV, Telemetry Current Upper Extremity ROM WFL ADL-Treatment Eating (QC): 6 (Per pt report) Lower Body Dressing (QC): 6 Toileting Hygiene (QC): 6 (Per pt report.) Other Treatments Pt and spouse agreeable to OT evaluation. Pt standing at bedside. Pt changed his pants, SBA when donning underwear due to threading BLEs into underwear in stand. IND with donning pants (pt seated EOB to thread pants). Pt's states pt has been slightly unsteady for some time. OT provided education on safety with ADLS, including recommendation for pt to sit while threading feet into pants, he verbalized understanding. Pt and indicate pt is at his PLOF with ADLS, and they decline further concerns with self care tasks at this time. Post tx, pt seated EOB, call light in reach and all needs met. Education OT Patient Education: Correct positioning, Energy conservation, Modified ADL techniques, Progress toward Goal/Update tx plan, Purpose of tx/functional activities, Rehab process Teaching Recipient: Patient Teaching Methods: Discussion Response to Teaching: Verbalize Understanding OT Recruiting Administrator Goals Recruiting Administrator Goals 1=Demonstrate adherence to instructed precautions during ADL tasks. 2=Patient will verbalize/demonstrate understanding of assistive devices/modifications for ADL. 3=Patient will improve strength/tolerance for activity to enable patient to perform ADL's. OT Education/Plan Problem List/Assessment Assessment: No Skilled OT Needs ID'd No skilled OT service indicated at this time. Pt is currently at his PLOF with self care tasks and mobility. Pt and decline further concerns with pt's ability to complete ADLS. D/C from OT. Discharge Recommendations Plan/Recommendations: Discharge/Goals Met Treatment Plan/Plan of Care Patient would benefit from OT for education, treatment and training to promote independence in ADL's, mobility, safety and/or upper extremity function for ADL's. Plan of Care: ADL Retraining, Functional Mobility Treatment Duration: Sep 09, 2022 Frequency: 1 time per week (eval only) Time Start Time: 08:46 Stop Time: 08:54 DATE: Sep 09, 2022 Total Time Billed (hr/min): 8 Billed Treatment Time 1, EVBRIAN CORONA OT Sep 09, 2022 09:16
[2022-09-09] MEDS ORDERED: FURO-124 PO ×2 (10:00→10:33)
[2022-09-09] MEDS ORDERED: SPIR25TA PO ×2 (10:02→10:33)
[2022-09-09] MEDS ORDERED: CITA20TA9 PO (10:02)
[2022-09-09] MEDS ORDERED: SACU1TAB7 PO ×2 (10:03→10:33)
[2022-09-09] MEDS ORDERED: CARV12.53 PO ×2 (10:04→10:12)
[2022-09-09] MEDS ORDERED: ALLO100T PO (10:05)
[2022-09-09] MEDS ORDERED: WARF-48 PO ×2 (10:14→10:15)
--- NOTE | 2022-09-09 10:32 | Progress Note ---
RAMON HINSON 09/09/22 1032: Progress Note This is a 72yoWM clinic patient of Dr. Kaye for many years who has a h/o valve replacement, stents maintained on Coumadin and has a pacemaker-ICD who sees Dr Hicks in [place] who presented to the ER on 09/08/22 after syncope at [facility]. His daughter and granddaughter were with him during this syncopal episode. He has also had diarrhea the past few months along with fecal incontinence. He was admitted for close monitoring. He was bradycardic with HR of 53 on arrival and was maintained in the 60s during his stay. Elevated troponin was noted and normalized from 0.035 to <0.028. Dr. Kaye spoke with the patient's regarding his progressing dementia. She will continue to follow up in clinic. He was seen by Dr. Chavez, firer low pressure, while in the hospital who noted that device interrogation did not indicate any significant arrhythmia associated with the syncopal episode. Cardiology recommended his heart failure meds that can lower blood pressure be reduced by half and optimization of warfarin therapy. He will have outpatient stool studies ordered to workup his diarrhea. Dr. Kaye will follow up with pt in her clinic. CATALINA KAYE DO 09/10/22 0522: Supervisory-Addendum Brief Verification & Attestation Participated in pt care: history, MDM, physical Personally performed: exam, history, MDM, supervision of care Care discussed with: Medical Student Procedures: n/a Results interpretation: Verified all documentation Verification and Attestation of Medical Student E/M Service A medical student performed and documented this service in my presence. I reviewed and verified all information documented by the medical student and made modifications to such information, when appropriate. I personally performed the physical exam and medical decision making. Catalina Kaye, Sep 10, 2022,05:22 RAMON HINSON Sep 09, 2022 10:32 CATALINA KAYE DO Sep 10, 2022 05:22
[2022-09-09] MEDS ORDERED: CARV3.12 PO (10:33)
--- NOTE | 2022-09-09 10:37 | Discharge Summary ---
Diagnosis/Chief Complaint Date of Admission Sep 08, 2022 at 13:47 Date of Discharge Discharge Date: Sep 09, 2022 Discharge Diagnosis Assessment: Syncope Volume depletion h/o diarrhea for several weeks Bradycardia CAD Valvular heart disease s/p repair Dementia Type 2 NSTEMI Plan: Monitor closely IVF gently Stool studies Cardiology consult Discharge Summary Discharge Physical Examination Allergies: Coded Allergies: No Known Drug Allergies (Unverified , 08/02/10) Vitals & I&Os Vital Signs Date Time Temp Pulse Resp B/P (MAP) Pulse Ox O2 Delivery O2 Flow Rate FiO2 09/09/22 11:50 36.6 83 15 120/78 98 Room Air 09/09/22 08:00 95 General Appearance: Alert, Cooperative Respiratory: Clear to Auscultation Cardiovascular: Regular Rate Neuro: Normal Gait Hospital Course Was the Problem List Reviewed?: Yes This is a 72yoWM clinic patient of Dr. Silva for many years who has a h/o valve replacement, stents maintained on Coumadin and has a pacemaker-ICD who sees Dr Hicks in [place] who presented to the ER on 09/08/22 after syncope at [facility]. His daughter and granddaughter were with him during this syncopal episode. He has also had diarrhea the past few months along with fecal incontinence. He was admitted for close monitoring. He was bradycardic with HR of 53 on arrival and was maintained in the 60s during his stay. Elevated troponin was noted and normalized from 0.035 to <0.028. Dr. Silva spoke with the patient's regarding his progressing dementia. She will continue to follow up in clinic. He was seen by Dr. Chavez, [employer] reverse winder, while in the hospital who noted that device interrogation did not indicate any significant arrhythmia associated with the syncopal episode. Cardiology recommended his heart failure meds that can lower blood pressure be reduced by half and optimization of warfarin therapy. He will have outpatient stool studies ordered to workup his diarrhea. Dr. Silva will follow up with pt in her clinic. RAMON HINSON Labs (last 24 hrs) Laboratory Tests 09/08/22 11:44: White Blood Count 8.7, Red Blood Count 5.15, Hemoglobin 16.6, Hematocrit 47, M milton Corpuscular Volume 92, Mean Corpuscular Hemoglobin 32, Mean Corpuscular Hemoglobin Concent 35, Red Cell Distribution Width 13.8, Platelet Count 211, Mean Platelet Volume 9.7, Immature Granulocyte % (Auto) 2, Neutrophils (%) (Auto) 76H, Lymphocytes (%) (Auto) 16, Monocytes (%) (Auto) 5, Eosinophils (%) (Auto) 1, Basophils (%) (Auto) 0, Neutrophils # (Auto) 6.7, Lymphocytes # (Auto) 1.4, Monocytes # (Auto) 0.4, Eosinophils # (Auto) 0.1, Basophils # (Auto) 0.0, Immature Granulocyte # (Auto) 0.2H, Prothrombin Time 20.6H, INR Comment 1.7H, Activated Partial Thromboplast Time 32, Sodium Level 138, Potassium Level 4.1, Chloride Level 105, Carbon Dioxide Level 20L, Anion Gap 13, Blood Urea Nitrogen 26H, Creatinine 1.73H, Estimat Glomerular Filtration Rate 41, BUN/Creatinine Ratio 15, Glucose Level 133H, Calcium Level 9.5, Corrected Calcium 9.6, Mag nesium Level 1.9, Total Bilirubin 1.5H, Aspartate Amino Transf (AST/SGOT) 17, Alanine Aminotransferase (ALT/SGPT) 21, Alkaline Phosphatase 71, Troponin I 0.035H, Total Protein 6.8, Albumin 3.9 09/08/22 13:40: Troponin I < 0.028 09/09/22 04:35: Prothrombin Time 25.6H, INR Comment 2.3H, Sodium Level 139, Potassium Level 3.9, Chloride Level 109H, Carbon Dioxide Level 20L, Anion Gap 10, Blood Urea Nitrogen 25H, Creatinine 1.42H, Estimat Glomerular Filtration Rate 52, BUN/Creatinine Ratio 18, Glucose Level 89, Calcium Level 9.3, Corrected Calcium 9.7, Total Bilirubin 1.0, Aspartate Amino Transf (AST/SGOT) 16, Alanine Aminotransferase (ALT/SGPT) 20, Alkaline Phosphatase 60, Total Protein 6.0L, Albumin 3.5 09/09/22 06:49: White Blood Count 6.4, Red Blood Count 4.83, Hemoglobin 15.6, Hematocrit 45, Mean Corpuscular Volume 92, Mean Corpuscular Hemoglobin 32, Mean Corpuscular Hemoglobin Concent 35, Red Cell Distribution Width 13.9, Platelet Count 211, Mean Platelet Volume 9.8, Immature Granulocyte % (Auto) 1, Neutrophils (%) (Auto) 67, Lymphocytes (%) (Auto) 26, Monocytes (%) (Auto) 6, Eosinophils (%) (Auto) 1, Basophils (%) (Auto) 0, Neutrophils # (Auto) 4.2, Lymphocytes # (Auto) 1.7, Monocytes # (Auto) 0.4, Eosinophils # (Auto) 0.1, Basophils # (Auto) 0.0, Immature Granulocyte # (Auto) 0.1 Pending Labs Laboratory Tests 09/08/22 11:44: White Blood Count 8.7, Red Blood Count 5.15, Hemoglobin 16.6, Hematocrit 47, Mean Corpuscular Volume 92, Mean Corpuscular Hemoglobin 32, Mean Corpuscular Hemoglobin Concent 35, Red Cell Distribution Width 13.8, Platelet Count 211, Mean Platelet Volume 9.7, Immature Granulocyte % (Auto) 2, Neutrophils (%) (Auto) 76, Lymphocytes (%) (Auto) 16, Monocytes (%) (Auto) 5, Eosinophils (%) (Auto) 1, Basophils (%) (Auto) 0, Neutrophils # (Auto) 6.7, Lymphocytes # (Auto) 1.4, Monocytes # (Auto) 0.4, Eosinophils # (Auto) 0.1, Basophils # (Auto) 0.0, Immature Granulocyte # (Auto) 0.2, Prothrombin Time 20.6, INR Comment 1.7, Activated Partial Thromboplast Time 32, Sodium Level 138, Potassium Level 4.1, Chloride Level 105, Carbon Dioxide Level 20, Anion Gap 13, Blood Urea Nitrogen 26, Creatinine 1.73, Estimat Glomerular Filtration Rate 41, BUN/Creatinine Ratio 15, Glucose Level 133, Calcium Level 9.5, Corrected Calcium 9.6, Magnesium Level 1.9, Total Bilirubin 1.5, Aspartate Amino Transf (AST/SGOT) 17, Alanine Aminotransferase (ALT/SGPT) 21, Alkaline Phosphatase 71, Troponin I 0.035, Total Protein 6.8, Albumin 3.9 09/08/22 13:40: Troponin I < 0.028 09/09/22 04:35: Prothrombin Time 25.6, INR Comment 2.3, Sodium Level 139, Potassium Level 3.9, Chloride Level 109, Carbon Dioxide Level 20, Anion Gap 10, Blood Urea Nitrogen 25, Creatinine 1.42, Estimat Glomerular Filtration Rate 52, BUN/Creatinine Ratio 18, Glucose Level 89, Calcium Level 9.3, Corrected Calcium 9.7, Total Bilirubin 1.0, Aspartate Amino Transf (AST/SGOT) 16, Alanine Aminotransferase (ALT/SGPT) 20, Alkaline Phosphatase 60, Total Protein 6.0, Albumin 3.5 09/09/22 06:49: White Blood Count 6.4, Red Blood Count 4.83, Hemoglobin 15.6, Hematocrit 45, Mean Corpuscular Volume 92, Mean Corpuscular Hemoglobin 32, Mean Corpuscular Hemoglobin Concent 35, Red Cell Distribution Width 13.9, Platelet Count 211, Mean Platelet Volume 9.8, Immature Granulocyte % (Auto) 1, Neutrophils (%) (Auto) 67, Lymphocytes (%) (Auto) 26, Monocytes (%) (Auto) 6, Eosinophils (%) (A uto) 1, Basophils (%) (Auto) 0, Neutrophils # (Auto) 4.2, Lymphocytes # (Auto) 1.7, Monocytes # (Auto) 0.4, Eosinophils # (Auto) 0.1, Basophils # (Auto) 0.0, Immature Granulocyte # (Auto) 0.1 Discharge Home Medications: Active Scripts Active Coreg (Carvedilol) 3.125 Mg Tablet 3.125 Mg PO BID Entresto 49 mg-51 mg Tablet (Sacubitril/Valsartan) 49 Mg-51 Mg Tablet 1 Tab PO BID 7 Days cut pill in half and take twice daily Aldactone (Spironolactone) 25 Mg Tablet 12.5 Mg PO Q48H 7 Days take every other day Lasix (Furosemide) 40 Mg Tablet 20 Mg PO Q48H 7 Days every other day Reported Warfarin Sodium 5 Mg Tablet 5 Mg PO DAILY TAKES 5 MG ON EVERY DAY EXCEPT WEDNESDAYS THE PATIENT TAKES 2.5MG Warfarin Sodium 5 Mg Tablet 2.5 Mg PO FRIDAY TAKES 2.5MG ON FRIDAY AND ALL OTHER DAYS TAKES 5MG Allopurinol 100 Mg Tablet 100 Mg PO BID Citalopram HBr (Citalopram Hydrobromide) 20 Mg Tablet 20 Mg PO HS Instructions to patient/family Please see electronic discharge instructions given to patient. Clinical Quality Measures AMI/AHF: ASA po Prior to arrival: DEE Pabon DO Sep 09, 2022 10:37
--- NOTE | 2022-09-09 12:02 | Physical Therapy Evaluation ---
PT Evaluation-General Medical Diagnosis Admission Date Sep 08, 2022 at 13:47 Medical Diagnosis: syncope Onset Date: Sep 08, 2022 Therapy Diagnosis Therapy Diagnosis: Gait deficit Precautions Precautions/Isolations: Standard Precautions Weight Bear Status Right Lower Extremity: Right Full Weight Bearing Left Lower Extremity: Left Full Weight Bearing Referral Physician: Ricardo Reason for Referral: Evaluation/Treatment Medical History Reviewed History: Yes Social History Home: Single Level Current Living Status: Spouse Entry Into Home: Stairs With Railing PT Steps Into Home: 2 PT Steps Inside Home: 6 Prior Prior Level of Function SCALE: Activities may be completed with or without assistive devices. 3-Oivujnmiac-goqtmjm completes the activity by him/herself with no assistance from a helper. 5-Set-up or Clean-up Assistance-helper sets up or cleans up; patient completes activity. [place] assists only prior to or following the activity. 4-Supervision or Touching Assistance-helper provides verbal cues and/or touching/steadying and/or contact guard assistance as patient completes activity. Assistance may be provided throughout the activity or intermittently. 3-Partial/Moderate Assistance-helper does LESS THAN HALF the effort. [place] lifts, holds or supports trunk or limbs, but provides less than half the effort. 2-Substantial/Maximal Assistance-helper does MORE THAN HALF the effort. [place] lifts or holds trunk or limbs and provides more than half the effort. 1-Lriixiyao-zvznys does ALL the effort. Patient does none of the effort to complete the activity. Or, the assistance of 2 or more helpers is required for the patient to complete the activity. If activity was not attempted, code reason: 7-Patient Refused. 9-Not Applicable-not attempted and the patient did not perform the activity before the current illness, exacerbation or injury. 10-Not Attempted due to Environmental Limitations-(lack of equipment, weather restraints, etc.). 88-Not Attempted due to Medical Conditions or Safety Concerns. Bed Mobility: 6 Transfers (B,C,W/C): 6 Gait: 6 Stairs: 6 PT Evaluation-Current Subjective Patient sitting on EOB upon PT arrival, agreeable to treatment. Patient rates pain at 0/10 currently. Objective Patient Orientation: Person, Place, Time, Situation Attachments: IV ROM/Strength ROM Lower Extremities WFLs bilaterally all planes Strength Lower Extremities 4/5 bilaterally all planes Sensory Vision: Functional Hearing: Functional Sensation Right Lower Extremit: Intact Sensation Left Lower Extremity: Intact Transfers Roll Left to Right (QC): 6 Sit to Lying (QC): 6 Lying to Sitting/Side of Bed(Q: 6 Sit to Stand (QC): 6 Chair/Frb-fb-Cxmhf Xfer(QC): 6 Gait Does the Patient Walk?: Yes Mode of Locomotion: Walk Anticipated Mode of Locomotion: Walk Walk 10 feet (QC): 6 Walk 50 ft with 2 Turns(QC): 4 Walk 150 ft (QC): 4 Distance: 400 feet Gait Assistive Device: None Balance Sitting Static: Normal Sitting Dynamic: Normal Standing Static: Good Standing Dynamic: Good Assessment/Needs Patient tolerated evaluation well. No further PT at this time. Rehab Potential: Good PT Plan Treatment/Plan Treatment Plan: Discontinue PT Treatment Duration: Sep 09, 2022 Frequency: Patient and/or Family Agrees t: Yes Time Time In: 1005 Time Out: 1021 DATE: Sep 09, 2022 Total Billed Treatment Time: 16 Total Billed Treatment Visit, CABRERA Duran PT Sep 09, 2022 12:02
--- NOTE | 2022-09-09 12:48 | Progress Note - Cardiology ---
Cardiology SOAP Progress Note Subjective: No recurrence of syncope or near-syncope No palp or cp or swelling No n/v/d No focal weakness Gen malaise has improved Objective: I&O/Vital Signs 09/09/22 09/09/22 09/09/22 09/09/22 01:00 04:00 07:43 08:00 Temp 36.3 Pulse 60 66 60 Resp 16 B/P (MAP) 98/71 (80) Pulse Ox 99 O2 Delivery Room Air Room Air FiO2 95 09/09/22 09/09/22 09/09/22 09/09/22 08:00 09:00 11:00 11:15 Temp 36.6 Pulse 60 71 62 83 Resp 15 10 18 15 B/P (MAP) 105/70 (82) 105/89 (94) 98/70 (79) 120/78 (92) Pulse Ox 97 100 O2 Delivery Room Air Room Air Room Air Room Air 09/09/22 09/09/22 11:43 11:50 Temp 36.6 Pulse 83 Resp 15 B/P (MAP) 120/78 (92) 120/78 Pulse Ox 98 O2 Delivery Room Air 09/09/22 00:00 Intake Total 600 ml Balance 600 ml Constitutional: AAO x 3, well-developed, well-nourished Respiratory: No accessory muscle use; chest expansion is symmetric, chest is bilaterally symmetric, other (fair to good air entry bilaterally) Cardiovascular: regular rate-rhythm, S1 and S2, systolic murmur (2/6 MSM at card base) Gastrointestional: No tender; soft; No guarding, No rebound; audible bowel sounds Extremities: No clubbing, No cyanosis, No significant edema Neurologic/Psychiatric: oriented x 3, other (moves all limbs equally) Skin: No rash on exposed areas, No ulcerations on exposed areas Results/Procedures: Labs Laboratory Tests 09/08/22 13:40: Troponin I < 0.028 09/09/22 04:35: Prothrombin Time 25.6H, INR Comment 2.3H, Sodium Level 139, Potassium Level 3.9, Chloride Level 109H, Carbon Dioxide Level 20L, Anion Gap 10, Blood Urea Nitrogen 25H, Creatinine 1.42H, Estimat Glomerular Filtration Rate 52, BUN/Creatinine Ratio 18, Glucose Level 89, Calcium Level 9.3, Corrected Calcium 9.7, Total Bilirubin 1.0, Aspartate Amino Transf (AST/SGOT) 16, Alanine Aminotransferase (ALT/SGPT) 20, Alkaline Phosphatase 60, Total Protein 6.0L, Albumin 3.5 09/09/22 06:49: White Blood Count 6.4, Red Blood Count 4.83, Hemoglobin 15.6, Hematocrit 45, Mean Corpuscular Volume 92, Mean Corpuscular Hemoglobin 32, Mean Corpuscular Hemoglobin Concent 35, Red Cell Distribution Width 13.9, Platelet Count 211, Mean Platelet Volume 9.8, Immature Granulocyte % (Auto) 1, Neutrophils (%) (Auto) 67, Lymphocytes (%) (Auto) 26, Monocytes (%) (Auto) 6, Eosinophils (%) (Auto) 1, Basophils (%) (Auto) 0, Neutrophils # (Auto) 4.2, Lymphocytes # (Auto) 1.7, Monocytes # (Auto) 0.4, Eosinophils # (Auto) 0.1, Basophils # (Auto) 0.0, Immature Granulocyte # (Auto) 0.1 A/P: Assessment: Near syncope - likely due to postural hypotension (has relatively low bp even supine) - device interrogation ib 09/08/22 has not indicated any significant arrhythmia and the device was functioning normally H/o bioprosthetic AVR x 2 - managed by his automotive diagnostic technician Dr Castro in [place], [place] H/o dilated cardiomyopathy - managed by his automotive diagnostic technician Ch warfarin therapy the reason for which is not known to the patient - managed by his automotive diagnostic technician Plan: * We recommend that heart failure meds that can lower bp be reduced by half * We recommend close outpt f/u with his pcp and his automotive diagnostic technician * We recommend optimization of warfarin therapy to the indication for which it has been initiated * I have communicated all of the above recs to Dr Silva Clinical Quality Measures AMI/AHF: ASA po Prior to arrival: NEAL Quiroz MD [facility] CCDS Sep 09, 2022 12:48
== END 2022-09-09 11:50 | disposition home or self-care (01) ==
LOC: EDUNIT# 11:18 → ER 11:21 → CSD 13:47
PROVIDERS: ADMIT Internal Medicine; ATTEND Internal Medicine
DX: R55 Syncope and collapse (principal); R00.1 Bradycardia, unspecified; E86.9 Volume depletion, unspecified; R19.7 Diarrhea, unspecified; I25.10 Atherosclerotic heart disease of native coronary artery without angina pectoris; F03.90 Unspecified dementia, unspecified severity, without behavioral disturbance, psychotic disturbance, mood disturbance, and anxiety; I21.A1 Myocardial infarction type 2; I42.0 Dilated cardiomyopathy; I50.9 Heart failure, unspecified; Z79.01 Long term (current) use of anticoagulants; Z95.2 Presence of prosthetic heart valve
CPT/HCPCS: 36415; 71045; 80053; 83735; 84484; 85025; 85610; 85730; 93005; 94760

== ENCOUNTER → 2022-11-04 | Outpatient (CLI) | payer MEDICARE, OTHER ==
[~2022-11-04] MED LIST changes: +ALLO100T PO; +CARV12.53 PO; +CARV3.12 PO; +CITA20TA9 PO; +FURO-124 PO; +SACU1TAB7 PO; +SPIR25TA PO; +WARF-48 PO
== END ==
LOC: CARD 12:20
PROVIDERS: ATTEND Internal Medicine Interventional Cardiology
DX: I42.0 Dilated cardiomyopathy (principal); I44.7 Left bundle-branch block, unspecified; R55 Syncope and collapse; I49.3 Ventricular premature depolarization; R00.2 Palpitations
CPT/HCPCS: 93225; 93226

== ENCOUNTER 2023-06-16 17:43 | Inpatient (IN) | payer MEDICARE, OTHER ==
[~2023-06-16] VITALS: Ht 175.3 cm; Wt 87.6 kg
[2023-06-16 18:01] LABS: MONOCYTES % (AUTO) 7 % (0-12)
[2023-06-16 18:03] LABS: BASOPHILS % (AUTO) 0 % (0-10); EOSINOPHILS % (AUTO) 0 % (0-10); HEMATOCRIT 52 % (40-54); HEMOGLOBIN 18.3 g/dL (13.3-17.7); LYMPHOCYTES # (AUTO) 1.4 10^3/uL (1.0-4.0); LYMPHOCYTES % (AUTO) 16 % (12-44); MEAN CORPUSCULAR HEMOGLOBIN 33 pg (25-34); MEAN CORPUSCULAR HGB CONC 35 g/dL (32-36); MEAN CORPUSCULAR VOLUME 94 fL (80-99); MEAN PLATELET VOLUME 9.7 fL (9.0-12.2); MONOCYTES # (AUTO) 0.6 10^3/uL (0.0-1.0); NEUTROPHILS # (AUTO) 6.6 10^3/uL (1.8-7.8); NEUTROPHILS % (AUTO) 76 % (42-75); PLATELET COUNT 112 10^3/uL (130-400); WHITE BLOOD COUNT 8.7 10^3/uL (4.3-11.0)
--- NOTE | 2023-06-16 18:04 | ED General ---
General Chief Complaint: COVID19 Suspect/Confirmed Stated Complaint: COVID +/WEAKNESS/AMS Source of Information: Patient, EMS Exam Limitations: Physical Impairments History of Present Illness Date Seen by Provider: Jun 16, 2023 Time Seen by Provider: 17:45 Initial Comments 73-year-old male presents to the ER via EMS for concerns of altered mental status. EMS reports that family reported that patient started having weakness and productive cough yesterday. He tested positive for COVID yesterday. EMS states family denies known fever. Patient has a history of dementia. He is alert to place and self, he does not know the month or the year. Family told EMS that patient normally walks, states that they could not get him out of bed today. States that he has not been drinking water. Patient denies chest pain, shortness of air, abdominal pain, nausea, dysuria. Patient found to have a fever here. informed nursing staff that patient has been incontinent of ur ine starting today, he is normally not incontinent. Allergies and Home Medications Allergies Coded Allergies: No Known Drug Allergies (Unverified , 08/02/10) Patient Home Medication List Home Medication List Reviewed: Yes Allopurinol (Allopurinol) 100 Mg Tablet, 100 MG PO BID, (Reported) Entered as Reported by: ADAN LINDSEY on 09/09/22 1005 Carvedilol (Coreg) 3.125 Mg Tablet, 3.125 MG PO BID Prescribed by: DEE KAYE on 09/09/22 1033 Citalopram Hydrobromide (Citalopram HBr) 20 Mg Tablet, 20 MG PO HS, (Reported) Entered as Reported by: ADAN LINDSEY on 09/09/22 1002 Furosemide (Lasix) 40 Mg Tablet, 20 MG PO Q48H Prescribed by: DEE KAYE on 09/09/22 1033 Sacubitril/Valsartan (Entresto 49 mg-51 mg Tablet) 49 Mg-51 Mg Tablet, 1 TAB PO BID Prescribed by: DEE KAYE on 09/09/22 1033 Spironolactone (Aldactone) 25 Mg Tablet, 12.5 MG PO Q48H Prescribed by: DEE KAYE on 09/09/22 1033 Warfarin Sodium (Warfarin Sodium) 5 Mg Tablet, 2.5 MG PO FRIDAY, (Reported) Entered as Reported by: TENA NAVARRETE on 09/09/22 1014 Warfarin Sodium (Warfarin Sodium) 5 Mg Tablet, 5 MG PO DAILY, (Reported) Entered as Reported by: TENA NAVARRETE on 09/09/22 1015 Review of Systems Review of Systems Constitutional: see HPI Past Tgclguf-Wrtrih-Uxhocy Hx Patient Social History Tobacco Use?: No Use of E-Cig and/or Vaping dev: No Substance use?: No Alcohol Use?: No Immunizations Up To Date First/Initial COVID19 Vaccinat: YES Second COVID19 Vaccination Esdras: YES Third COVID19 Vaccination Date: YES Past Medical History Surgery/Hospitalization HX: 2 HEART VALVES, PACEMEKER, HYPERTENSION, TIA'S, DEMENTIA Surgeries: Yes (CARDIAC CATH, VASECTOMY, valve replacement) Respiratory: No Cardiac: Yes (pacemaker) Atrial Fibrillation, Cardiomyopathy, Chronic Edema/Swelling, Coronary Artery Disease, High Cholesterol, Hypertension, Valvular Heart Disease Neurological: Yes Dementia Reproductive Disorders: Yes Gastrointestinal: Yes Musculoskeletal: No Arthritis, Gout Endocrine: No Psychosocial: No Blood Disorders: No Family Medical History No Pertinent Family Hx Physical Exam-Suspected Sepsis Physical Exam Vital Signs Vital Signs - First Documented 06/16/23 17:45 Temp 38.3 Pulse 94 Resp 23 B/P (MAP) 137/88 (104) Pulse Ox 95 O2 Delivery Room Air Capillary Refill : Height, Weight, BMI Height: '" Weight: lbs. oz. kg; 27.72 BMI Method:Stated General Appearance: No Apparent Distress, WD/WN Neck: Normal Inspection, Supple Respiratory: Lungs Clear, Normal Breath Sounds, No Accessory Muscle Use, No Respiratory Distress, Decreased Breath Sounds (Diminished lower lobes) Cardiovascular: Regular Rate, Rhythm Gastrointestinal: Normal Bowel Sounds, Non Tender, Soft Extremity: Normal Inspection, Normal Range of Motion, No Pedal Edema Neurologic/Psychiatric: Alert, Normal Mood/Affect, Disoriented Skin: normal color, warm/dry Focused Exam Lactate Level 06/16/23 17:45: Lactic Acid Level 1.46 Lactic Acid Level Laboratory Tests Test 06/16/23 17:45 Lactic Acid Level 1.46 MMOL/L (0.50-2.00) Procedures/Interventions Suture Size: 5-0 Progress/Results/Core Measures Suspected Sepsis SIRS Temperature: Pulse: Respiratory Rate: Laboratory Tests 06/16/23 17:45: White Blood Count 8.7 Blood Pressure / Mean: 06/16/23 17:45: Lactic Acid Level 1.46 Laboratory Tests 06/16/23 17:45: Creatinine 1.29, INR Comment 1.8H, Platelet Count 112L, Total Bilirubin 1.4H Results/Orders Lab Results Laboratory Tests Test 06/16/23 17:45 06/16/23 18:56 Range/Units White Blood Count 8.7 4.3-11.0 10^3/uL Red Blood Count 5.56 H 4.30-5.52 10^6/uL Hemoglobin 18.3 H 13.3-17.7 g/dL Hematocrit 52 40-54 % Mean Corpuscular Volume 94 80-99 fL Mean Corpuscular Hemoglobin 33 25-34 pg Mean Corpuscular Hemoglobin Concent 35 32-36 g/dL Red Cell Distribution Width 13.9 10.0-14.5 % Platelet Count 112 L 130-400 10^3/uL Mean Platelet Volume 9.7 9.0-12.2 fL Immature Granulocyte % (Auto) 1 % Neutrophils (%) (Auto) 76 H 42-75 % Lymphocytes (%) (Auto) 16 12-44 % Monocytes (%) (Auto) 7 0-12 % Eosinophils (%) (Auto) 0 0-10 % Basophils (%) (Auto) 0 0-10 % Neutrophils # (Auto) 6.6 1.8-7.8 10^3/uL Lymphocytes # (Auto) 1.4 1.0-4.0 10^3/uL Monocytes # (Auto) 0.6 0.0-1.0 10^3/uL Eosinophils # (Auto) 0.0 0.0-0.3 10^3/uL Basophils # (Auto) 0.0 0.0-0.1 10^3/uL Immature Granulocyte # (Auto) 0.1 0.0-0.1 10^3/uL Percent Immature Platelet Fraction 2.5 0.0-7.6 % Prothrombin Time 20.8 H 12.2-14.7 SEC INR Comment 1.8 H 0.8-1.4 Activated Partial Thromboplast Time 46 H 24-35 SEC Sodium Level 137 135-145 MMOL/L Potassium Level 4.5 3.6-5.0 MMOL/L Chloride Level 106 98-107 MMOL/L Carbon Dioxide Level 20 L 21-32 MMOL/L Anion Gap 11 5-14 MMOL/L Blood Urea Nitrogen 30 H 7-18 MG/DL Creatinine 1.29 0.60-1.30 MG/DL Estimat Glomerular Filtration Rate 58 BUN/Creatinine Ratio 23 Glucose Level 102 70-105 MG/DL Lactic Acid Level 1.46 0.50-2.00 MMOL/L Calcium Level 9.3 8.5-10.1 MG/DL Corrected Calcium 9.2 8.5-10.1 MG/DL Total Bilirubin 1.4 H 0.1-1.0 MG/DL Aspartate Amino Transf (AST/SGOT) 34 5-34 U/L Alanine Aminotransferase (ALT/SGPT) 19 0-55 U/L Alkaline Phosphatase 73 40-136 U/L Total Protein 6.8 6.4-8.2 GM/DL Albumin 4.1 3.2-4.5 GM/DL Smear Scan YES Urine Color YELLOW Urine Clarity CLEAR Urine pH 5.5 5-9 Urine Specific [place] >=1.030 1.016-1.022 Urine Protein 2+ H NEGATIVE Urine Glucose (UA) NEGATIVE NEGATIVE Urine Ketones TRACE H NEGATIVE Urine Nitrite NEGATIVE NEGATIVE Urine Bilirubin 1+ H NEGATIVE Urine Urobilinogen 2.0 < = 1.0 MG/DL Urine Leukocyte Esterase NEGATIVE NEGATIVE Urine RBC (Auto) 2+ H NEGATIVE Urine RBC 0-2 /HPF Urine WBC NONE /HPF Urine Squamous Epithelial Cells 2-5 /HPF Urine Crystals PRESENT H /LPF Urine Amorphous Sediment MOD MANISHA URATES H /LPF Urine Bacteria TRACE /HPF Urine Casts PRESENT /LPF Urine Hyaline Casts 0-2 H /LPF Urine Mucus SMALL H /LPF Urine Culture Indicated NO My Orders Orders - LORIE WHEELER APRN Cbc With Automated Diff (06/16/23 17:54) Comprehensive Metabolic Panel (06/16/23 17:54) Blood Culture (06/16/23 17:54) Sputum Culture (06/16/23 17:54) Urinalysis (06/16/23 17:54) Urine Culture (06/16/23 17:54) Protime With Inr (06/16/23 17:54) Partial Thromboplastin Time (06/16/23 17:54) Chest 1 View, Ap/Pa Only (06/16/23 17:54) Ed Iv/Invasive Line Start (06/16/23 17:54) Vital Signs Adult Sepsis Patie Q15M (06/16/23 17:54) Remove Rings In Anticipation O (06/16/23 17:54) Lactic Acid Analyzer (06/16/23 17:54) Ns Iv 500 Ml (Ns Iv 500 Ml) (06/16/23 18:15) Acetaminophen Tablet (Acetaminophen Ta (06/16/23 18:15) Straight Cath (Urinary) (06/16/23 18:49) Ed Admission (Communication) (06/16/23 19:11) Medications Given in ED Current Medications Medications Dose Ordered Sig/Issac Route Start Time Stop Time Status Last Admin Dose Admin Acetaminophen 1,000 mg ONCE ONCE PO 06/16/23 18:15 06/16/23 18:16 DC 06/16/23 18:17 1,000 MG Sodium Chloride 500 ml @ 0 mls/hr Q0M ONCE IV 06/16/23 18:15 06/16/23 18:16 DC 06/16/23 18:17 1,000 MLS/HR Vital Signs/I&O 06/16/23 06/16/23 17:45 19:33 Temp 38.3 38.3 Pulse 94 84 Resp 23 17 B/P (MAP) 137/88 (104) 120/85 Pulse Ox 95 96 O2 Delivery Room Air Room Air Capillary Refill : Progress Note : Progress Note Patient seen and evaluated, resting comfortably in bed, no acute distress. Based on exam and symptoms, septic work-up initiated including CBC, CMP, coags, blood cultures x2, lactic acid, urinalysis, chest x-ray, sputum culture. 500 mils of IV fluids ordered, I will not do the full septic bolus due to normal vital signs, history of heart failure on Lasix. 1849 Labs and chest x-ray reviewed. CBC shows normal white count, hemoglobin elevated 18.3, RBC elevated 5.56. CMP shows slight decreased CO2 20, elevated BUN 30, creatinine 1.29, GFR 58. Creatinine and GFR are improved from labs drawn in September 2020. Total bilirubin slightly elevated 1.4. Lactic acid normal 1.46. Coags show elevated PT 20.8, INR 1.8, APTT 46. Patient is on warfarin. Chest x-ray shows no acute abnormality. In and out catheter ordered to collect urine sample. Dr. Kaye has already been down to see the patient and would like to admit patient. She would like him to go to [facility] as an inpatient. She will place admission orders. 1927 Urinalysis reviewed. 2+ protein, trace ketones, 1+ bilirubin, 2+ RBCs, no WBCs, 2-5 squamous epithelial cells, trace bacteria. Dr. Kaye updated on results of UA. Diagnostic Imaging Diagonstic Imaging: Xray Plain Films/CT/US/NM/MRI: chest Comments [facility] [place], [place] NAME: AMADOR SOLOMON [facility] REC#: [id number] PT STATUS: REG ER : 1950 PHYSICIAN: LORIE WHEELER APRN ADMIT DATE: 06/16/23/ER Draft Date of Exam:06/16/23 CHEST 1 VIEW, AP/PA ONLY INDICATION: Altered mental status and COVID. COMPARISON: 09/08/2022. FINDINGS: No focal consolidation. The lungs are stable. Heart size is upper limits but stable. Pacemaker device is stable. No effusion. No pneumothorax. IMPRESSION: Stable chest. No acute appearing abnormality. Dictated on workstation # [id number] Dict: 06/16/231815 Trans: 06/16/231818 [id number] Interpreted by: PRAFUL RICE Electronically signed by: Departure Communication (Admissions) Time/Spoke to Admitting Phy: 17:55 Dr. Kaye, see progress note. Impression Primary Impression: COVID-19 Additional Impression: Altered mental status Disposition: ADMITTED INPATIENT Condition: Stable Admissions Decision to Admit Reason: Admit from ER (General) Decision to Admit/Date: Jun 16, 2023 Time/Decision to Admit Time: 18:30 Departure-Patient Inst. Referrals: DEE KAYE DO (PCP/Family) Primary Care Physician LORIE WHEELER APRN Jun 16, 2023 18:04
[2023-06-16 18:06] LABS: SMEAR SCAN COMMENT YES
[2023-06-16] MEDS ORDERED: ACETAMINOPHEN 500 MG TABLET PO ONE (18:15)
[2023-06-16] MEDS ORDERED: NS IV 500 ML 500 ML IV ONE (18:15)
[2023-06-16 18:16] LABS: INR 1.8 (0.8-1.4); PROTHROMBIN TIME PATIENT 20.8 SEC (12.2-14.7)
--- NOTE | 2023-06-16 18:19 | Diagnostic Imaging Report ---
INDICATION: Altered mental status and COVID. COMPARISON: 09/08/2022. FINDINGS: No focal consolidation. The lungs are stable. Heart size is upper limits but stable. Pacemaker device is stable. No effusion. No pneumothorax. IMPRESSION: Stable chest. No acute appearing abnormality. Dictated by: Dictated on workstation # [id number]
[2023-06-16 18:23] LABS: ALBUMIN 4.1 GM/DL (3.2-4.5); BILIRUBIN,TOTAL 1.4 MG/DL (0.1-1.0); CALCIUM 9.3 MG/DL (8.5-10.1); CREATININE SERUM 1.29 MG/DL (0.60-1.30); POTASSIUM 4.5 MMOL/L (3.6-5.0); TOTAL PROTEIN 6.8 GM/DL (6.4-8.2)
[2023-06-16 19:23] LABS: CLARITY,URINE CLEAR; COLOR,URINE YELLOW; PH,URINE 5.5 (5-9)
[2023-06-16 19:24] LABS: BILIRUBIN,URINE 1+ (NEGATIVE); GLUCOSE, URINE (UA) NEGATIVE (NEGATIVE); KETONES,URINE TRACE (NEGATIVE); LEUKOCYTE ESTERASE ,URINE NEGATIVE (NEGATIVE); NITRITE,URINE NEGATIVE (NEGATIVE); PROTEIN,URINE 2+ (NEGATIVE); RBC,URINE 0-2 /HPF
[2023-06-16 19:25] LABS: AMORPHOUS SEDIMENT,UR MOD AMOR URATES /LPF; BACTERIA,URINE TRACE /HPF; HYALINE CASTS, URINE 0-2 /LPF
[2023-06-16 20:37] VITALS: BP 100/61
[2023-06-16 20:38] VITALS: BP 100/61
[2023-06-16] MEDS ORDERED: ENOXAPARIN 80 MG/0.8 ML SYRINGE SC ONE (20:45)
[2023-06-16] MEDS ORDERED: ONDANSETRON INJECTION 4 MG/2 ML (SDV) IV PRN (20:45)
[2023-06-16] MEDS ORDERED: ONDANSETRON 4 MG ORAL DISSOLVE TABLET PO PRN (20:45)
[2023-06-16] MEDS ORDERED: MILK OF MAGNESIA 400 MG/5 ML 30 ML UDC PO PRN (20:45)
[2023-06-16] MEDS ORDERED: HYDROmorphone INJECTION 2 MG/ML VIAL IV PRN (20:45)
[2023-06-16] MEDS ORDERED: NS IV 1000 ML 1,000 ML IV SCH (20:45)
[2023-06-16] MEDS ORDERED: PATIENT MAY USE OWN MEDS, ALL PO SCH (20:45)
[2023-06-16] MEDS ORDERED: MELATONIN 3 MG TABLET PO PRN (20:45)
[2023-06-16] MEDS ORDERED: diphenhydrAMINE 25 MG TABLET PO PRN (20:45)
[2023-06-16] MEDS ORDERED: BISACODYL 10 MG SUPPOSITORY PR PRN (20:45)
[2023-06-16] MEDS ORDERED: oxyCODONE IMMEDIATE RELEASE 5 MG TABLET PO PRN (20:45)
[2023-06-16] MEDS ORDERED: ANTACID SUSPENSION 30 ML UDC PO PRN (20:45)
[2023-06-16] MEDS ORDERED: ACETAMINOPHEN 325 MG TABLET PO PRN (20:45)
[2023-06-16] MEDS ORDERED: diphenhydrAMINE INJ 50 MG/ML VIAL IVP PRN (20:45)
[2023-06-16] MEDS ORDERED: warFARin 5 MG (COUMADIN) TAB PO ONE (20:45)
[2023-06-16] MEDS ORDERED: LACTULOSE SYRUP 10GM/15ML 30ML UDC PO PRN (20:45)
[2023-06-16] MEDS ORDERED: CALCIUM CARBONATE 500 MG CHEW TABLET PO PRN (20:45)
[2023-06-16] MEDS: DOCUSATE SODIUM 100 MG CAPSULE PO SCH (22:00)
[2023-06-16] MEDS: SENNOSIDES 8.6 MG TABLET PO SCH (22:00)
[2023-06-16] MEDS: MEXILETINE 150 MG CAPSULE PO SCH (22:10)
[2023-06-16] MEDS: guaiFENesin 600 MG TABLET PO SCH (22:10)
[2023-06-16 22:19] VITALS: BP 137/88
[2023-06-16] MEDS ORDERED: RT-ALBUTEROL HFA 8.5 GM INHALER IH PRN (22:30)
[2023-06-16 23:56] VITALS: BP 103/68
[2023-06-17 04:16] VITALS: BP 111/71
[2023-06-17 05:58] LABS: BASOPHILS % (AUTO) 0 % (0-10); EOSINOPHILS % (AUTO) 0 % (0-10); HEMATOCRIT 48 % (40-54); HEMOGLOBIN 16.6 g/dL (13.3-17.7); LYMPHOCYTES # (AUTO) 1.1 10^3/uL (1.0-4.0); LYMPHOCYTES % (AUTO) 15 % (12-44); MEAN CORPUSCULAR HEMOGLOBIN 33 pg (25-34); MEAN CORPUSCULAR HGB CONC 35 g/dL (32-36); MEAN CORPUSCULAR VOLUME 95 fL (80-99); MEAN PLATELET VOLUME 10.1 fL (9.0-12.2); MONOCYTES # (AUTO) 0.7 10^3/uL (0.0-1.0); MONOCYTES % (AUTO) 10 % (0-12); NEUTROPHILS # (AUTO) 5.3 10^3/uL (1.8-7.8); NEUTROPHILS % (AUTO) 74 % (42-75); PLATELET COUNT 84 10^3/uL (130-400); WHITE BLOOD COUNT 7.1 10^3/uL (4.3-11.0)
[2023-06-17 06:22] LABS: INR 2.1 (0.8-1.4); PROTHROMBIN TIME PATIENT 23.1 SEC (12.2-14.7)
[2023-06-17 06:23] LABS: ALBUMIN 3.5 GM/DL (3.2-4.5); BILIRUBIN,TOTAL 1.2 MG/DL (0.1-1.0); CALCIUM 8.8 MG/DL (8.5-10.1); CREATININE SERUM 1.36 MG/DL (0.60-1.30); POTASSIUM 4.5 MMOL/L (3.6-5.0); TOTAL PROTEIN 6.1 GM/DL (6.4-8.2)
[2023-06-17 08:29] VITALS: BP 98/66
[2023-06-17] MEDS: DOCUSATE SODIUM 100 MG CAPSULE PO SCH ×2 (08:59→19:52)
[2023-06-17] MEDS: guaiFENesin 600 MG TABLET PO SCH ×2 (08:59→22:12)
[2023-06-17] MEDS: SENNOSIDES 8.6 MG TABLET PO SCH ×2 (08:59→19:52)
[2023-06-17] MEDS: MEXILETINE 150 MG CAPSULE PO SCH ×2 (08:59→22:13)
[2023-06-17] MEDS ORDERED: dexAMETHasone INJ 10 MG/ML 1 ML VIAL IV SCH (09:00)
--- NOTE | 2023-06-17 09:35 | History & Physical ---
DELVINTORO 06/17/23 0935: History of Present Illness History of Present Illness Reason for visit/HPI 73-year-old male with history of dementia was brought to the ED on 06/16 via EMS with chief complaint of AMS. Family told EMS that he started having weakness and a productive cough yesterday, found to be COVID positive. They reported that he was unable to get out of bed and that he was incontinent of urine, neither of which is normal for him. He had not been drinking any fluids yesterday as well. He was found to have a slight fever of 38.3 C in the ED, reports no fever measured at home, no fever today. CXR showed nothing acute. He was given a 500ml bolus of NS in the ED started on NS at 70mls per hour, currently on his second bag. Today his mental status has improved, appears to be near his baseline. He reports that he feels much better today, weakness has improved, denies any SOB, chest pain. Patient has no new complaints. Date of Admission Jun 16, 2023 at 19:54 Date Seen by a Provider: Jun 17, 2023 Time Seen by a Provider: 08:15 I consulted on this patient on 06/17/23 09:29 Attending Physician Catalina Kaye DO Admitting Physician Admitting Physician: Catalina Kaye DO Attending Physician: Catalina Kaye DO Consult Allergies and Home Medications Allergies Coded Allergies: No Known Drug Allergies (Unverified , 08/02/10) Patient Home Medication List Allopurinol (Allopurinol) 100 Mg Tablet, 100 MG PO BID, (Reported) Entered as Reported by: ADAN LINDSEY on 09/09/22 1005 Last Action: Reviewed Carvedilol (Carvedilol) 3.125 Mg Tablet, 3.125 MG PO BID, (Reported) Entered as Reported by: RUDI SHRESTHA on 06/17/23 1226 Last Action: Reviewed Citalopram Hydrobromide (Citalopram HBr) 20 Mg Tablet, 20 MG PO HS, (Reported) Entered as Reported by: ADAN LINDSEY on 09/09/22 1002 Last Action: Reviewed Donepezil HCl (Donepezil HCl) 10 Mg Tablet, 10 MG PO HS, (Reported) Entered as Reported by: RUDI SHRESTHA on 9/12/23 1226 Last Action: Reviewed Furosemide (Furosemide) 40 Mg Tablet, 20 MG PO Q48H, (Reported) Entered as Reported by: RUDI SHRESTHA on 06/17/231237 Last Action: Reviewed Mexiletine HCl (Mexiletine HCl) 150 Mg Cap, 150 MG PO BID, (Reported) Entered as Reported by: RUDI SHRESTHA on 06/17/231225 Last Action: Reviewed Sacubitril/Valsartan (Entresto 49 mg-51 mg Tablet) 49 Mg-51 Mg Tablet, 0.5 EA PO BID, (Reported) Entered as Reported by: RUDI SHRESTHA on 06/17/231237 Last Action: Reviewed Spironolactone (Spironolactone) 25 Mg Tablet, 12.5 MG PO Q48H, (Reported) Entered as Reported by: RUDI SHRESTHA on 06/17/231225 Last Action: Reviewed Warfarin Sodium (Warfarin Sodium) 5 Mg Tablet, 5 MG PO DIOP,MO,TU,TH,SA, (Reported) Entered as Reported by: RUDI SHRESTHA on 06/17/231225 Last Action: Reviewed Warfarin Sodium (Warfarin Sodium) 5 Mg Tablet, 2.5 MG PO WE,FR, (Reported) Entered as Reported by: RUDI SHRESTHA on 06/17/231225 Last Action: Reviewed Discontinued Medications Carvedilol (Coreg) 3.125 Mg Tablet, 3.125 MG PO BID Discontinued Reason: Duplicate Order Prescribed by: CATALINA KAYE on 09/09/221032 Last Action: Discontinued Furosemide (Lasix) 40 Mg Tablet, 20 MG PO Q48H Discontinued Reason: Duplicate Order Prescribed by: CATALINA KAYE on 09/09/221032 Last Action: Discontinued Sacubitril/Valsartan (Entresto 49 mg-51 mg Tablet) 49 Mg-51 Mg Tablet, 1 TAB PO BID Discontinued Reason: Duplicate Order Prescribed by: CATALINA KAYE on 09/09/221032 Last Action: Discontinued Spironolactone (Aldactone) 25 Mg Tablet, 12.5 MG PO Q48H Discontinued Reason: Duplicate Order Prescribed by: CATALINA KAYE on 09/09/221032 Last Action: Discontinued Warfarin Sodium (Warfarin Sodium) 5 Mg Tablet, 2.5 MG PO FRIDAY, (Reported) Discontinued Reason: Duplicate Order Entered as Reported by: TENA NAVARRETE on 09/09/22 1014 Last Action: Discontinued Warfarin Sodium (Warfarin Sodium) 5 Mg Tablet, 5 MG PO DAILY, (Reported) Discontinued Reason: Duplicate Order Entered as Reported by: TENA NAVARRETE on 09/09/22 1015 Last Action: Discontinued Past Qxsuror-Unasgy-Capbnu Hx Patient Social History Tobacco Use?: No Smoking Status: Never a Smoker Smokeless Tobacco Frequency: Never a User Use of E-Cig and/or Vaping dev: No Substance use?: No Alcohol Use?: Yes Alcohol type: Hard Liquor Alcohol Frequency: Rarely Pt feels they are or have been: No Immunizations Up To Date First/Initial COVID19 Vaccinat: YES Second COVID19 Vaccination Esdras: YES Tetanus Booster (TDap): More Than 5 Years Hepatitis A: No Hepatitis B: No Current Status Advance Directives: No Communicates: Verbally Primary Language: Pashto Preferred Spoken Language: Pashto Is interpretation needed?: No Sensory deficits: Vision impairment Implanted or Applied Medical D: CPAP, Pacemaker Past Medical History Atrial Fibrillation, Cardiomyopathy, Chronic Edema/Swelling, Coronary Artery Disease, High Cholesterol, Hypertension, Valvular Heart Disease Dementia Arthritis, Gout Blood Disorders: No Family Medical History No Pertinent Family Hx Review of Systems Constitutional: No chills, No fever EENTM: No hearing loss, No blurred vision Respiratory: cough (improved from yesterday); No dyspnea on exertion, No short of breath Cardiovascular: No chest pain, No palpitations Gastrointestinal: No nausea, No vomiting Genitourinary: No dysuria, No hematuria Musculoskeletal: No back pain, No neck pain Skin: No change in color, No change in hair/nails Psychiatric/Neurological: Denies Numbness, Denies Weakness Physical Exam Vital Signs Vital Signs - First Documented 06/16/23 06/16/23 17:45 22:19 Temp 38.3 Pulse 94 Resp 23 B/P (MAP) 137/88 (104) Pulse Ox 95 O2 Delivery Room Air FiO2 21 Capillary Refill : Height, Weight, BMI Height: '" Weight: lbs. oz. kg; 28.50 BMI Method:Stated General Appearance: No Apparent Distress, WD/WN HEENT: PERRL/EOMI Neck: Non Tender, Supple Respiratory: Chest Non Tender, Normal Breath Sounds, No Accessory Muscle Use Cardiovascular: Regular Rate, Rhythm, Normal Peripheral Pulses Gastrointestinal: Non Tender, Soft Rectal: Deferred Back: No Vertebral Tenderness Extremity: Normal Capillary Refill, Non Tender, No Calf Tenderness Neurologic/Psychiatric: Alert, Oriented x3 Skin: Normal Color, Warm/Dry Lymphatic: No Adenopathy Assessment/Plan Assessment and Plan AMS: improved, seems to be close to baseline COVID: no respiratory symptoms currently, continue dexamethasone, albuterol and supplemental O2 as needed Dementia CKD 3a: continue IVF rehydration, monitor BUN, Cr, measured at 35 and 1.36 today respectively Valvular heart disease: 2 valve replacements, continue warfarin HTN: holding BP meds currently, had some soft BPs systolic in 100s, 90s CAD: no acute needs Gout: home allopurinol CATALINA KAYE DO 06/17/231955: History of Present Illness History of Present Illness Reason for visit/HPI CC: Encephalopathy due to COVID HPI: This is a 73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 He could not walk and his dementia has been worsened. Currently he is without issues and I did update his Allergies and Home Medications Allergies Coded Allergies: No Known Drug Allergies (Unverified , 08/02/10) Patient Home Medication List Home Medication List Reviewed: Yes Allopurinol (Allopurinol) 100 Mg Tablet, 100 MG PO BID, (Reported) Entered as Reported by: ADAN LINDSEY on 09/09/22 1005 Last Action: Reviewed Carvedilol (Carvedilol) 3.125 Mg Tablet, 3.125 MG PO BID, (Reported) Entered as Reported by: URDI SHRESTHA on 06/17/23 1226 Last Action: Reviewed Citalopram Hydrobromide (Citalopram HBr) 20 Mg Tablet, 20 MG PO HS, (Reported) Entered as Reported by: ADAN LINDSEY on 09/09/22 1002 Last Action: Reviewed Donepezil HCl (Donepezil HCl) 10 Mg Tablet, 10 MG PO HS, (Reported) Entered as Reported by: RUDI SHRESTHA on 06/17/23 1226 Last Action: Reviewed Furosemide (Furosemide) 40 Mg Tablet, 20 MG PO Q48H, (Reported) Entered as Reported by: RUDI SHRESTHA on 06/17/23 1238 Last Action: Reviewed Mexiletine HCl (Mexiletine HCl) 150 Mg Cap, 150 MG PO BID, (Reported) Entered as Reported by: RUDI SHRESTHA on 06/17/231225 Last Action: Reviewed Sacubitril/Valsartan (Entresto 49 mg-51 mg Tablet) 49 Mg-51 Mg Tablet, 0.5 EA PO BID, (Reported) Entered as Reported by: RUDI SHRESTHA on 06/17/231237 Last Action: Reviewed Spironolactone (Spironolactone) 25 Mg Tablet, 12.5 MG PO Q48H, (Reported) Entered as Reported by: RUDI SHRESTHA on 06/17/231225 Last Action: Reviewed Warfarin Sodium (Warfarin Sodium) 5 Mg Tablet, 5 MG PO DIOP,MO,TU,TH,SA, (Reported) Entered as Reported by: RUDI SHRESTHA on 06/17/231225 Last Action: Reviewed Warfarin Sodium (Warfarin Sodium) 5 Mg Tablet, 2.5 MG PO WE,FR, (Reported) Entered as Reported by: RUDI SHRESTHA on 06/17/231225 Last Action: Reviewed Discontinued Medications Carvedilol (Coreg) 3.125 Mg Tablet, 3.125 MG PO BID Discontinued Reason: Duplicate Order Prescribed by: CATALINA KAYE on 09/09/221032 Last Action: Discontinued Furosemide (Lasix) 40 Mg Tablet, 20 MG PO Q48H Discontinued Reason: Duplicate Order Prescribed by: CATALINA KAYE on 09/09/221032 Last Action: Discontinued Sacubitril/Valsartan (Entresto 49 mg-51 mg Tablet) 49 Mg-51 Mg Tablet, 1 TAB PO BID Discontinued Reason: Duplicate Order Prescribed by: CATALINA KAYE on 09/09/221032 Last Action: Discontinued Spironolactone (Aldactone) 25 Mg Tablet, 12.5 MG PO Q48H Discontinued Reason: Duplicate Order Prescribed by: CATALINA KAYE on 09/09/221032 Last Action: Discontinued Warfarin Sodium (Warfarin Sodium) 5 Mg Tablet, 2.5 MG PO FRIDAY, (Reported) Discontinued Reason: Duplicate Order Entered as Reported by: TENA NAVARRETE on 09/09/22 1014 Last Action: Discontinued Warfarin Sodium (Warfarin Sodium) 5 Mg Tablet, 5 MG PO DAILY, (Reported) Discontinued Reason: Duplicate Order Entered as Reported by: TENA NAVARRETE on 09/09/22 1015 Last Action: Discontinued Past Ktwvatt-Sljhxk-Albxxx Hx Patient Social History Marrital Status: Employed/Student: retired Smoking Status: Former Smoker Past Medical History Surgeries: Pacemaker, Valve Replacement Atrial Fibrillation, Coronary Artery Disease, High Cholesterol, Hypertension, Valvular Heart Disease Gout Review of Systems Constitutional: see HPI Psychiatric/Neurological: Other (confusion) Physical Exam General Appearance: No Apparent Distress, WD/WN, Chronically ill Respiratory: Normal Breath Sounds, No Accessory Muscle Use, Decreased Breath Sounds Neurologic/Psychiatric: Alert, Disoriented Assessment/Plan Assessment and Plan Assessment: Acute encephalopathy due to COVID Dementia CKD HTN CAD Pacemaker Gout Plan: ARU Monitor closely Problems: (1) COVID-19 (2) Altered mental status Admission Diagnosis Admission Status: Inpatient Order (span 2 midnights) Reason for Inpatient Admission: covid Supervisory-Addendum Brief Verification & Attestation Participated in pt care: history, MDM, physical Personally performed: exam, history, MDM, supervision of care Care discussed with: Medical Student Procedures: n/a Results interpretation: Verified all documentation Verification and Attestation of Medical Student E/M Service A medical student performed and documented this service in my presence. I reviewed and verified all information documented by the medical student and made modifications to such information, when appropriate. I personally performed the physical exam and medical decision making. Catalina Kaye, Jun 17, 2023,19:56 TORO HARGROVE Jun 17, 2023 09:35 CATALINA KAYE DO Jun 17, 2023 19:56
--- NOTE | 2023-06-17 11:11 | Physical Therapy Evaluation ---
PT Evaluation-General Medical Diagnosis Admission Date Jun 16, 2023 at 19:54 Medical Diagnosis: Covid/AMS Onset Date: Jun 16, 2023 Therapy Diagnosis Therapy Diagnosis: generalized weakness/debility Precautions Precautions/Isolations: Contact Isolation, Droplet Isolation, Fall Prevention Referral Physician: Ricardo Reason for Referral: Evaluation/Treatment Medical History Pertinent Medical History: Atrial Fib, CAD, Dementia, HTN Current History EMS from home secondary to SOA, cough and inability to stand/ambulate Reviewed History: Yes Social History Home: Single Level Current Living Status: Spouse Prior Prior Level of Function SCALE: Activities may be completed with or without assistive devices. 6-Rwjfhswjxu-vwzksph completes the activity by him/herself with no assistance from a helper. 5-Set-up or Clean-up Assistance-helper sets up or cleans up; patient completes activity. [place] assists only prior to or following the activity. 4-Supervision or Touching Assistance-helper provides verbal cues and/or touching/steadying and/or contact guard assistance as patient completes activity. Assistance may be provided throughout the activity or intermittently. 3-Partial/Moderate Assistance-helper does LESS THAN HALF the effort. [place] lifts, holds or supports trunk or limbs, but provides less than half the effort. 2-Substantial/Maximal Assistance-helper does MORE THAN HALF the effort. [place] lifts or holds trunk or limbs and provides more than half the effort. 1-Gnzwubczq-ujyhpx does ALL the effort. Patient does none of the effort to complete the activity. Or, the assistance of 2 or more helpers is required for the patient to complete the activity. If activity was not attempted, code reason: 7-Patient Refused. 9-Not Applicable-not attempted and the patient did not perform the activity before the current illness, exacerbation or injury. 10-Not Attempted due to Environmental Limitations-(lack of equipment, weather restraints, etc.). 88-Not Attempted due to Medical Conditions or Safety Concerns. Bed Mobility: 4 Transfers (B,C,W/C): 4 Gait: 4 Indoor Mobility (Ambulation): Needed Some Help Prior Devices Use: None spouse assist PT Evaluation-Current Subjective Patient is in bed with spouse present. Objective Patient Orientation: Person ROM/Strength ROM Lower Extremities bilateral LE WFL Strength Lower Extremities 3+/5 grossly bilateral LE all planes Integumentary/Posture Bladder Incontinence: Yes Posture WFL Neuromuscular (Tone, Coordination, Reflexes) diminished coordination due to weakness Sensory Vision: Functional Hearing: Functional Transfers Lying to Sitting/Side of Bed(Q: 2 Sit to Stand (QC): 2 Chair/Qsu-xk-Ldwva Xfer(QC): 3 Gait Mode of Locomotion: Walk Anticipated Mode of Locomotion: Walk Walk 10 feet (QC): 3 Walk 50 ft with 2 Turns(QC): 3 Walk 150 ft (QC): 88 Distance: 50' x 2 Gait Assistive Device: None Comments/Gait Description slightly unsteady with PT correct/improved gait sequence with time Balance Sitting Static: Fair Sitting Dynamic: Fair Standing Static: Fair Standing Dynamic: Fair Assessment/Needs Patient will benefit from skilled PT to address functional strength and mobility to improve current LOF to safely return to home with spouse at maximum LOF. Rehab Potential: Fair PT Mcc Goals Agricultural Extension Specialist Goals PT Agricultural Extension Specialist Goals Time Frame: Jun 28, 2023 Roll Left & Right (QC): 5 Sit to Lying (QC): 5 Lying-Sitting on Side/Bed(QC): 5 Sit to Stand (QC): 4 Chair/Udt-sy-Rmhpk Xfer(QC): 4 Toilet Transfer (QC): 4 Walk 10 feet (QC): 4 Walk 50ft with 2 Turns (QC): 4 Walk 150 ft (QC): 4 PT Plan Problem List Problem List: Activity Tolerance, Functional Strength, Safety, Balance, Gait, Transfer, Bed Mobility Treatment/Plan Treatment Plan: Continue Plan of Care Treatment Plan: Bed Mobility, Education, Functional Activity Jemal, Functional Strength, Gait, Safety, Therapeutic Exercise, Transfers Treatment Duration: Jun 28, 2023 Frequency: 6 times per week Estimated Hrs Per Day: .25 hour per day Patient and/or Family Agrees t: Yes Time Time In: 1035 Time Out: 1048 DATE: Jun 17, 2023 Total Billed Treatment Time: 13 [facility] Jun 17, 2023 11:11
[2023-06-17 11:25] VITALS: BP 103/71
--- NOTE | 2023-06-17 11:34 | Occupational Therapy Eval ---
OT Evaluation-General/PLF Medical Diagnosis Admission Date Jun 16, 2023 at 19:54 Medical Diagnosis: Covid/AMS Onset Date: Jun 16, 2023 Therapy Diagnosis Therapy Diagnosis: weakness, debility Precautions Precautions/Isolations: Contact Isolation, Droplet Isolation, Fall Prevention Referral Physician: Ricardo Black Reason: Evaluation/Treatment Medical History Pertinent Medical History: Atrial Fib, CAD, Dementia, HTN Reviewed History: Yes Social History Home: Single Level Current Living Status: Spouse Lives with , adult children help out occasionally ADL-Prior Level of Function SCALE: Activities may be completed with or without assistive devices. 4-Ueaydotncl-jelblut completes the activity by him/herself with no assistance from a helper. 5-Set-up or Clean-up Assistance-helper sets up or cleans up; patient completes activity. [place] assists only prior to or following the activity. 4-Supervision or Touching Assistance-helper provides verbal cues and/or touching/steadying and/or contact guard assistance as patient completes acti vity. Assistance may be provided throughout the activity or intermittently. 3-Partial/Moderate Assistance-helper does LESS THAN HALF the effort. [place] lifts, holds or supports trunk or limbs, but provides less than half the effort. 2-Substantial/Maximal Assistance-helper does MORE THAN HALF the effort. [place] lifts or holds trunk or limbs and provides more than half the effort. 5-Saaulkdnk-igxdhh does ALL the effort. Patient does none of the effort to complete the activity. Or, the assistance of 2 or more helpers is required for the patient to complete the activity. If activity was not attempted, code reason: 7-Patient Refused. 9-Not Applicable-not attempted and the patient did not perform the activity before the current illness, exacerbation or injury. 10-Not Attempted due to Environmental Limitations-(lack of equipment, weather restraints, etc.). 88-Not Attempted due to Medical Conditions or Safety Concerns. ADL PLOF Comments assists moderately w/ ADLS and transfers Self Care: Needed Some Help Functional Cognition: Needed Some Help Drive Self: No OT Current Status Subjective Fiat affect, minimal verbalization, Responds well to red hair females Pain Comment: Intermittentlean required min-max assistance to sustain static EOB sitting Mental Status/Objective Patient Orientation: Person Current Hand Dominance: Right Upper Extremity ROM BUE ROM WFLs Upper Extremity Coordination IMPAIRED Upper Extremity Sensation NT Upper Extremity Strength +4/5 grossly ADL-Treatment ADL-Current Set up and demonstration for instruction provided, required hand over hand placement of toothbrush to mouth and comb to head. Saturated bedding, Required 2 person to stand, once standing only one person assist. Disposable brief donned w/ 3 person assist d/t intermittent posterior lean Eating (QC): 4 Oral Hygiene (QC): 3 Shower/Bathe Self (QC): 7 Upper Body Dressing (QC): 3 Lower Body Dressing (QC): 1 On/Off Footwear (QC): 1 Toileting Hygiene (QC): 1 Education OT Patient Education: Correct positioning, Instructions to caregiver, Modified ADL techniques, Progress toward Goal/Update tx plan, Purpose of tx/functional activities, Reviewed precautions, Rehab process, Safety issues, Transfer techniques Teaching Recipient: Patient, Family Teaching Methods: Demonstration, Discussion Response to Teaching: Reinforcement Needed OT Intermediate Goals Electrician Substation Supervisor Goals Eating (QC): 5 Oral Hygiene (QC): 5 Toileting Hygiene (QC): 4 Shower/Bathe Self (QC): 3 Upper Body Dressing (QC): 4 Lower Body Dressing (QC): 3 On/Off Footwear (QC): 3 1=Demonstrate adherence to instructed precautions during ADL tasks. 2=Patient will verbalize/demonstrate understanding of assistive devices/modifications for ADL. 3=Patient will improve strength/tolerance for activity to enable patient to perform ADL's. OT Education/Plan Problem List/Assessment Assessment: Decreased Activ Tolerance, Decreased Safety Aware, Impaired Bed Mobility, Impaired Cognition, Impaired Coordination, Impaired Funct Balance, Impaired Self-Care Skills Discharge Recommendations Plan/Recommendations: Continue POC Treatment Plan/Plan of Care Treatment,Training & Education: Yes Patient would benefit from OT for education, treatment and training to promote independence in ADL's, mobility, safety and/or upper extremity function for ADL's. Plan of Care: ADL Retraining, Concurrent Therapy, Functional Mobility, Group Exercise/Act as Ind, UE Funct Exercise/Act Treatment Duration: Jun 23, 2023 Frequency: 3 times per week (3-5 times per week) Estimated Hrs Per Day: .25 hour per day Rehab Potential: Fair Up in recliner w/ spouse present Time Start Time: 10:40 Stop Time: 10:55 DATE: Jun 17, 2023 Total Time Billed (hr/min): 15 Billed Treatment Time EVM 15 min PRABHJOT CORDOBA OT Jun 17, 2023 11:34
[2023-06-17] MEDS ORDERED: CARV3.122 PO (12:26)
[2023-06-17] MEDS ORDERED: DONE10TA41 PO (12:26)
[2023-06-17] MEDS ORDERED: WARF-48 PO ×2 (12:26)
[2023-06-17] MEDS ORDERED: NF-MEXI150 PO (12:26)
[2023-06-17] MEDS ORDERED: SPIR25TA5 PO (12:26)
[2023-06-17] MEDS ORDERED: SACU1TAB7 PO (12:38)
[2023-06-17] MEDS ORDERED: FURO40TA4 PO (12:38)
[2023-06-17 15:23] VITALS: BP 102/69
[2023-06-17] MEDS ORDERED: warFARin 5 MG (COUMADIN) TAB PO SCH (18:00)
[2023-06-17 19:20] VITALS: BP 108/69
[2023-06-17 23:00] VITALS: BP 115/70
[2023-06-18 04:43] VITALS: BP 116/74
[2023-06-18 06:30] LABS: ALBUMIN 3.5 GM/DL (3.2-4.5)
[2023-06-18 06:32] LABS: BASOPHILS % (AUTO) 0 % (0-10); CALCIUM 9.3 MG/DL (8.5-10.1); MEAN PLATELET VOLUME 9.6 fL (9.0-12.2)
[2023-06-18 06:33] LABS: TOTAL PROTEIN 6.2 GM/DL (6.4-8.2)
[2023-06-18 06:34] LABS: EOSINOPHILS % (AUTO) 0 % (0-10); HEMATOCRIT 47 % (40-54); HEMOGLOBIN 16.5 g/dL (13.3-17.7); LYMPHOCYTES # (AUTO) 0.9 10^3/uL (1.0-4.0); LYMPHOCYTES % (AUTO) 18 % (12-44); MEAN CORPUSCULAR HEMOGLOBIN 33 pg (25-34); MEAN CORPUSCULAR HGB CONC 35 g/dL (32-36); MEAN CORPUSCULAR VOLUME 94 fL (80-99); MONOCYTES # (AUTO) 0.3 10^3/uL (0.0-1.0); MONOCYTES % (AUTO) 6 % (0-12); NEUTROPHILS # (AUTO) 3.9 10^3/uL (1.8-7.8); NEUTROPHILS % (AUTO) 76 % (42-75); PLATELET COUNT 106 10^3/uL (130-400); WHITE BLOOD COUNT 5.2 10^3/uL (4.3-11.0)
[2023-06-18 06:35] LABS: BILIRUBIN,TOTAL 0.7 MG/DL (0.1-1.0)
[2023-06-18 06:36] LABS: INR 2.7 (0.8-1.4); PROTHROMBIN TIME PATIENT 28.6 SEC (12.2-14.7)
[2023-06-18 06:37] LABS: CREATININE SERUM 1.21 MG/DL (0.60-1.30)
[2023-06-18] MEDS: guaiFENesin 600 MG TABLET PO SCH (08:45)
[2023-06-18] MEDS: DOCUSATE SODIUM 100 MG CAPSULE PO SCH (08:45)
[2023-06-18] MEDS: SENNOSIDES 8.6 MG TABLET PO SCH (08:45)
[2023-06-18] MEDS: MEXILETINE 150 MG CAPSULE PO SCH (08:45)
[2023-06-18 08:47] VITALS: BP 114/73
--- NOTE | 2023-06-18 10:39 | Discharge Summary ---
Diagnosis/Chief Complaint Date of Admission Jun 16, 2023 at 19:54 Date of Discharge Discharge Date: Jun 18, 2023 Discharge Diagnosis Assessment: Acute encephalopathy and myopathy due to COVID Dementia CKD HTN CAD Pacemaker Gout Reason Hospital Visit CC: Encephalopathy due to COVID HPI: This is a 73yoWM clinic patient of mine who presented to the ER after his called my office with severe issues with COVID dx a few days ago. He could not walk and his dementia has been worsened. Currently he is without issues and I did update his Discharge Summary Discharge Physical Examination Allergies: Coded Allergies: No Known Drug Allergies (Unverified , 08/02/10) Vitals & I&Os Vital Signs Date Time Temp Pulse Resp B/P (MAP) Pulse Ox O2 Delivery O2 Flow Rate FiO2 06/18/23 12:22 36.8 80 18 127/65 (85) 98 Room Air 06/16/23 22:19 21 General Appearance: Alert, Oriented X3, Cooperative Respiratory: Clear to Auscultation Cardiovascular: Regular Rate Psych/Mental Status: Mental Status NL Hospital Course Was the Problem List Reviewed?: Yes 73-year-old male with history of dementia was brought to the ED on 06/16 via EMS with chief complaint of AMS. Family told EMS that he started having weakness and a productive cough that day, found to be COVID positive. They reported that he was unable to get out of bed and that he was incontinent of urine, neither of which is normal for him. He had not been drinking any fluids yesterday as well. CXR in the ED showed no acute process, denied any SOB or other respiratory symptoms during his stay. He was treated for acute encephalopathy due to COVID during his stay, responded well to dexamethasone. His mental status improved back to his baseline, weakness and coordination also improved throughout his stay, has been able to get up and around his room by himself, per he is currently close to his baseline. He is being prepared for discharge today to the ARU for further skilled therapy to reach his prior level of function. Labs (last 24 hrs) Laboratory Tests 06/16/23 17:45: White Blood Count 8.7, Red Blood Count 5.56H, Hemoglobin 18.3H, Hematocrit 52, Mean Corpuscular Volume 94, Mean Corpuscular Hemoglobin 33, Mean Corpuscular Hemoglobin Concent 35, Red Cell Distribution Width 13.9, Platelet Count 112L, Me an Platelet Volume 9.7, Immature Granulocyte % (Auto) 1, Neutrophils (%) (Auto) 76H, Lymphocytes (%) (Auto) 16, Monocytes (%) (Auto) 7, Eosinophils (%) (Auto) 0, Basophils (%) (Auto) 0, Neutrophils # (Auto) 6.6, Lymphocytes # (Auto) 1.4, Monocytes # (Auto) 0.6, Eosinophils # (Auto) 0.0, Basophils # (Auto) 0.0, Immature Granulocyte # (Auto) 0.1, Percent Immature Platelet Fraction 2.5, Prothrombin Time 20.8H, INR Comment 1.8H, Activated Partial Thromboplast Time 46H, Sodium Level 137, Potassium Level 4.5, Chloride Level 106, Carbon Dioxide L evel 20L, Anion Gap 11, Blood Urea Nitrogen 30H, Creatinine 1.29, Estimat Glomerular Filtration Rate 58, BUN/Creatinine Ratio 23, Glucose Level 102, Lactic Acid Level 1.46, Calcium Level 9.3, Corrected Calcium 9.2, Total Bilirubin 1.4H, Aspartate Amino Transf (AST/SGOT) 34, Alanine Aminotransferase (ALT/SGPT) 19, Alkaline Phosphatase 73, Total Protein 6.8, Albumin 4.1, Smear Scan YES 06/16/23 18:56: Urine Color YELLOW, Urine Clarity CLEAR, Urine pH 5.5, Urine Specific [place] >=1.030, Urine Protein 2+H, Urine Glucose (UA) NEGATIVE, Urine Ketones TRACEH, Urine Nitrite NEGATIVE, Urine Bilirubin 1+H, Urine Urobilinogen 2.0, Urine Leukocyte Esterase NEGATIVE, Urine RBC (Auto) 2+H, Urine RBC 0-2, Urine WBC NONE, Urine Squamous Epithelial Cells 2-5, Urine Crystals PRESENTH, Urine Amorphous Sediment MOD MANISHA URATESH, Urine Bacteria TRACE, Urine Casts PRESENT, Urine Hyaline Casts 0-2H, Urine Mucus SMALLH, Urine Culture Indicated NO 06/17/23 05:45: White Blood Count 7.1, Red Blood Count 5.05, Hemoglobin 16.6, Hematocrit 48, Mean Corpuscular Volume 95, Mean Corpuscular Hemoglobin 33, Mean Corpuscular Hemoglobin Concent 35, Red Cell Distribution Width 14.3, Platelet Count 84L, Mean Platelet Volume 10.1, Immature Granulocyte % (Auto) 0, Neutrophils (%) (Auto) 74, Lymphocytes (%) (Auto) 15, Monocytes (%) (Auto) 10, Eosinophils (%) (Auto) 0, Basophils (%) (Auto) 0, Neutrophils # (Auto) 5.3, Lymphocytes # (Auto) 1.1, Monocytes # (Auto) 0.7, Eosinophils # (Auto) 0.0, Basophils # (Auto) 0.0, Immature Granulocyte # (Auto) 0.0, Prothrombin Time 23.1H, INR Comment 2.1H, Sodium Level 139, Potassium Level 4.5, Chloride Level 108H, Carbon Dioxide Level 21, Anion Gap 10, Blood Urea Nitrogen 35H, Creatinine 1.36H, Estimat Glomerular Filtration Rate 54, BUN/Creatinine Ratio 26, Glucose Level 88, Calcium Level 8.8, Corrected Calcium 9.2, Total Bilirubin 1.2H, Aspartate Amino Transf (AST/SG OT) 31, Alanine Aminotransferase (ALT/SGPT) 18, Alkaline Phosphatase 60, Total Protein 6.1L, Albumin 3.5 06/18/23 05:37: White Blood Count 5.2, Red Blood Count 5.02, Hemoglobin 16.5, Hematocrit 47, Mean Corpuscular Volume 94, Mean Corpuscular Hemoglobin 33, Mean Corpuscular Hemoglobin Concent 35, Red Cell Distribution Width 13.9, Platelet Count 106L, Mean Platelet Volume 9.6, Immature Granulocyte % (Auto) 1, Neutrophils (%) (Auto) 76H, Lymphocytes (%) (Auto) 18, Monocytes (%) (Auto) 6, Eosinophils (%) (Auto) 0, Basophils (%) (Auto) 0, Neutrophils # (Auto) 3.9, Lymphocytes # (Auto) 0.9L, Monocytes # (Auto) 0.3, Eosinophils # (Auto) 0.0, Basophils # (Auto) 0.0, Immature Granulocyte # (Auto) 0.0, Percent Immature Platelet Fraction 2.3, Prothrombin Time 28.6H, INR Comment 2.7H, Sodium Level 137, Potassium Level 4.0, Chloride Level 109H, Carbon Dioxide Level 18L, Anion Gap 10, Blood Urea Nitrogen 41H, Creatinine 1.21, Estimat Glomerular Filtration Rate 62, BUN/Creatinine Ratio 34, Glucose Level 126H, Calcium Level 9.3, Corrected Calcium 9.7, Total Bilirubin 0.7, Aspartate Amino Transf (AST/SGOT) 28, Alanine Aminotransferase (ALT/SGPT) 17, Alkaline Phosphatase 57, Total Protein 6.2L, Albumin 3.5 Microbiology 06/16/23 Urine Culture - Final, Complete NO GROWTH 06/16/23 Blood Culture - Preliminary, Resulted Pending Labs Microbiology Date/Time Source Procedure Growth Status 06/16/23 18:56 Urine Straight Cath, In/Out Urine Culture - Final NO GROWTH Complete 06/16/23 17:45 Peripheral Lt Ac Blood Culture - Preliminary Resulted 06/16/23 05:45 Peripheral Rt Ac Blood Culture - Preliminary Resulted Laboratory Tests 06/16/23 17:45: White Blood Count 8.7, Red Blood Count 5.56, Hemoglobin 18.3, Hematocrit 52, Mean Corpuscular Volume 94, Mean Corpuscular Hemoglobin 33, Mean Corpuscular Hemoglobin Concent 35, Red Cell Distribution Width 13.9, Platelet Count 112, Mean Platelet Volume 9.7, Immature Granulocyte % (Auto) 1, Neutrophils (%) (Auto) 76, Lymphocytes (%) (Auto) 16, Monocytes (%) (Auto) 7, Eosinophils (%) (Auto) 0, Basophils (%) (Auto) 0, Neutrophils # (Auto) 6.6, Lymphocytes # (Auto) 1.4, Monocytes # (Auto) 0.6, Eosinophils # (Auto) 0.0, Basophils # (Auto) 0.0, Immature Granulocyte # (Auto) 0.1, Percent Immature Platelet Fraction 2.5, Prothrombin Time 20.8, INR Comment 1.8, Activated Partial Thromboplast Time 46, Sodium Level 137, Potassium Level 4.5, Chloride Level 106, Carbon Dioxide Level 20, Anion Gap 11, Blood Urea Nitrogen 30, Creatinine 1.29, Estimat Glomerular Filtration Rate 58, BUN/Creatinine Ratio 23, Glucose Level 102, Lactic Acid Level 1.46, Calcium Level 9.3, Corrected Calcium 9.2, Total Bilirubin 1.4, Aspartate Amino Transf (AST/SGOT) 34, Alanine Aminotransferase (ALT/SGPT) 19, Alkaline Phosphatase 73, Total Protein 6.8, Albumin 4.1, Smear Scan YES 06/16/23 18:56: Urine Color YELLOW, Urine Clarity CLEAR, Urine pH 5.5, Urine Specific [place] >=1.030, Urine Protein 2+, Urine Glucose (UA) NEGATIVE, Urine Ketones TRACE, Urine Nitrite NEGATIVE, Urine Bilirubin 1+, Urine Urobilinogen 2.0, Urine Leukocyte Esterase NEGATIVE, Urine RBC (Auto) 2+, Urine RBC 0-2, Urine WBC NONE, Urine Squamous Epithelial Cells 2-5, Urine Crystals PRESENT, Urine Amorphous Sediment MOD MANISHA URATES, Urine Bacteria TRACE, Urine Casts PRESENT, Urine Hyaline Casts 0-2, Urine Mucus SMALL, Urine Culture Indicated NO 06/17/23 05:45: White Blood Count 7.1, Red Blood Count 5.05, Hemoglobin 16.6, Hematocrit 48, Mean Corpuscular Volume 95, Mean Corpuscular Hemoglobin 33, Mean Corpuscular Hemoglobin Concent 35, Red Cell Distribution Width 14.3, Platelet Count 84, Mean Platelet Volume 10.1, Immature Granulocyte % (Auto) 0, Neutrophils (%) (Auto) 74, Lymphocytes (%) (Auto) 15, Monocytes (%) (Auto) 10, Eosinophils (%) (Auto) 0, Basophils (%) (Auto) 0, Neutrophils # (Auto) 5.3, Lymphocytes # (Auto) 1.1, Monocytes # (Auto) 0.7, Eosinophils # (Auto) 0.0, Basophils # (Auto) 0.0, Immature Granulocyte # (Auto) 0.0, Prothrombin Time 23.1, INR Comment 2.1, Sodium Level 139, Potassium Level 4.5, Chloride Level 108, Carbon Dioxide Level 21, Anion Gap 10, Blood Urea Nitrogen 35, Creatinine 1.36, Estimat Glomerular Filtration Rate 54, BUN/Creatinine Ratio 26, Glucose Level 88, Calcium Level 8.8, Corrected Calcium 9.2, Total Bilirubin 1.2, Aspartate Amino Transf (AST/SGOT) 31, Alanine Aminotransferase (ALT/SGPT) 18, Alkaline Phosphatase 60, Total Protein 6.1, Albumin 3.5 06/18/23 05:37: White Blood Count 5.2, Red Blood Count 5.02, Hemoglobin 16.5, Hematocrit 47, Mean Corpuscular Volume 94, Mean Corpuscular Hemoglobin 33, Mean Corpuscular Hemoglobin Concent 35, Red Cell Distribution Width 13.9, Platelet Count 106, Mean Platelet Volume 9.6, Immature Granulocyte % (Auto) 1, Neutrophils (%) (Auto) 76, Lymphocytes (%) (Auto) 18, Monocytes (%) (Auto) 6, Eosinophils (%) (Auto) 0, Basophils (%) (Auto) 0, Neutrophils # (Auto) 3.9, Lymphocytes # (Auto) 0.9, Monocytes # (Auto) 0.3, Eosinophils # (Auto) 0.0, Basophils # (Auto) 0.0, Immature Granulocyte # (Auto) 0.0, Percent Immature Platelet Fraction 2.3, Prothrombin Time 28.6, INR Comment 2.7, Sodium Level 137, Potassium Level 4.0, Chloride Level 109, Carbon Dioxide Level 18, Anion Gap 10, Blood Urea Nitrogen 41, Creatinine 1.21, Estimat Glomerular Filtration Rate 62, BUN/Creatinine Ratio 34, Glucose Level 126, Calcium Level 9.3, Corrected Calcium 9.7, Total Bilirubin 0.7, Aspartate Amino Transf (AST/SGOT) 28, Alanine Aminotransferase (ALT/SGPT) 17, Alkaline Phosphatase 57, Total Protein 6.2, Albumin 3.5 Discharge Home Medications: Active Scripts Active Reported Furosemide 40 Mg Tablet 20 Mg PO Q48H ALTERNATES WITH SPIRONOLACTONE Entresto 49 mg-51 mg Tablet (Sacubitril/Valsartan) 49 Mg-51 Mg Tablet 0.5 Ea PO BID Spironolactone 25 Mg Tablet 12.5 Mg PO Q48H TAKES OF A 25MG ALTERNATES WITH FUROSEMIDE Carvedilol 3.125 Mg Tablet 3.125 Mg PO BID Donepezil HCl 10 Mg Tablet 10 Mg PO HS Mexiletine HCl 150 Mg Cap 150 Mg PO BID Warfarin Sodium 5 Mg Tablet 2.5 Mg PO WE,FR TAKES OF A 5MG Warfarin Sodium 5 Mg Tablet 5 Mg PO DIOP,MO,,,SA Allopurinol 100 Mg Tablet 100 Mg PO BID Citalopram HBr (Citalopram Hydrobromide) 20 Mg Tablet 20 Mg PO HS Instructions to patient/family Please see electronic discharge instructions given to patient. Diagnosis/Problems Diagnosis/Problems (1) COVID-19 (2) Altered mental status DEE KAYE DO Jun 18, 2023 10:38
--- NOTE | 2023-06-18 11:55 | Progress Note ---
TORO HARGROVE 06/18/23 1155: Progress Note 73-year-old male with history of dementia was brought to the ED on 06/16 via EMS with chief complaint of AMS. Family told EMS that he started having weakness and a productive cough that day, found to be COVID positive. They reported that he was unable to get out of bed and that he was incontinent of urine, neither of which is normal for him. He had not been drinking any fluids yesterday as well. CXR in the ED showed no acute process, denied any SOB or other respiratory symptoms during his stay. He was treated for acute encephalopathy due to COVID during his stay, responded well to dexamethasone. His mental status improved back to his baseline, weakness and coordination also improved throughout his stay, has been able to get up and around his room by himself, per he is currently close to his baseline. He is being prepared for discharge today to the ARU for further skilled therapy to reach his prior level of function. CATALINA SILVA DO 06/19/23 0459: Supervisory-Addendum Brief Verification & Attestation Participated in pt care: history, MDM, physical Personally performed: exam, history, MDM, supervision of care Care discussed with: Medical Student Procedures: n/a Results interpretation: Verified all documentation Verification and Attestation of Medical Student E/M Service A medical student performed and documented this service in my presence. I reviewed and verified all information documented by the medical student and made modifications to such information, when appropriate. I personally performed the physical exam and medical decision making. Catalina Silva Jun 19, 2023,04:59 TORO HARGROVE Jun 18, 2023 11:55 CATALINA SILVA DO Jun 19, 2023 04:59
[2023-06-18 12:22] VITALS: BP 127/65
--- NOTE | 2023-06-18 18:29 | Physician Query-Final Dx ---
ARELY YOUSSEF 06/18/239: Final Diagnosis Give Final Diagnosis Please give Final Diagnosis The medical record reflects the following clinical scenario: The patient, in the setting of History/Risk factors, admitted with COVID-19 and altered mental status due to COVID-19, fevers, Hx of Dementia Clinical Findings GCS on admission 12 improved to 15, "could not walk" prior to admission, documentation of chief complaint of AMS per EMS, Later documenting improvement in mental status weakness has improved, back to baseline Treatment neuro status monitoring, IV fluids, Tylenol for fevers Question: Can you further specify "encephalopathy" documented on H&P per the clinical indicators above? Please document your response in the Progress Notes or Discharge Summary. Acute Metabolic Encephalopathy, in the setting of COVID-19 present on admission now resolved Other, with explanation of clinical findings Clinically undetermined, no explanation for clinical findings Please clarify and document your clinical opinion in the Progress Notes and Discharge Summary including the definitive and/or presumptive diagnosis, (suspected or probable), related to the above clinical findings. Please include clinical findings supporting your diagnosis. In responding to this query, please exercise your independent professional judgment. The purpose of this communication is to more accurately reflect the complexity of your patients condition. The fact that a question is asked does not imply that any particular answer is desired or expected. Thank you for timely response to this clarification. Arely Youssef, MSN, RN Clinical Body Cleaner [phone] [email or web address] DEE KAYE DO 06/18/231954: Final Diagnosis Give Final Diagnosis Acute Metabolic Encephalopathy, in the setting of COVID-19 present on admission now resolved ARELY YOUSSEF Jun 18, 2023 18:29 DEE KAYE DO Jun 18, 2023 19:55
== END 2023-06-18 13:20 | DRG 177 ==
LOC: EDUNIT# 17:43 → ER 17:45 → 4TH 19:54
PROVIDERS: ADMIT Internal Medicine; ATTEND Internal Medicine
PROC: 8E0ZXY6 Isolation (ICD-10-PCS; principal; 2023-06-16)
DX: U07.1 COVID-19 (principal); G93.41 Metabolic encephalopathy; I42.9 Cardiomyopathy, unspecified; Z95.2 Presence of prosthetic heart valve; Z95.0 Presence of cardiac pacemaker; Z86.73 Personal history of transient ischemic attack (TIA), and cerebral infarction without residual deficits; F03.90 Unspecified dementia, unspecified severity, without behavioral disturbance, psychotic disturbance, mood disturbance, and anxiety; I48.91 Unspecified atrial fibrillation; I25.10 Atherosclerotic heart disease of native coronary artery without angina pectoris; M19.90 Unspecified osteoarthritis, unspecified site; M10.9 Gout, unspecified; Z79.01 Long term (current) use of anticoagulants; Z79.899 Other long term (current) drug therapy; N18.31 Chronic kidney disease, stage 3a; I12.9 Hypertensive chronic kidney disease with stage 1 through stage 4 chronic kidney disease, or unspecified chronic kidney disease; G72.9 Myopathy, unspecified
CPT/HCPCS: 36415; 51701; 71045; 80053; 81000; 83605; 85025; 85610; 85730; 87040; 87088

== ENCOUNTER 2023-06-18 11:55 | Inpatient (IN) | payer MEDICARE, OTHER ==
[~2023-06-18] VITALS: Ht 175.3 cm; Wt 87.6 kg
[~2023-06-18 11:55] MED LIST changes: +CARV3.122 PO; +DONE10TA41 PO; +FURO40TA4 PO; +NF-MEXI150 PO; +SPIR25TA5 PO
[2023-06-18] MEDS ORDERED: LOPERAMIDE 2 MG CAPSULE PO PRN (12:15)
[2023-06-18] MEDS ORDERED: DOCUSATE SODIUM 100 MG CAPSULE PO PRN (12:15)
[2023-06-18] MEDS ORDERED: ALPRAZolam 0.25 MG TABLET PO PRN (12:15)
[2023-06-18] MEDS ORDERED: diphenhydrAMINE 25 MG TABLET PO PRN (12:15)
[2023-06-18] MEDS ORDERED: CALCIUM CARBONATE 500 MG CHEW TABLET PO PRN (12:15)
[2023-06-18] MEDS ORDERED: MELATONIN 3 MG TABLET PO PRN (12:15)
[2023-06-18] MEDS ORDERED: ONDANSETRON 4 MG ORAL DISSOLVE TABLET PO PRN (12:15)
[2023-06-18] MEDS ORDERED: Sodium Phosphate/Sodium Biphosphate ADULT enema PR PRN (12:15)
[2023-06-18] MEDS ORDERED: BISACODYL 10 MG SUPPOSITORY PR PRN (12:15)
[2023-06-18] MEDS ORDERED: ACETAMINOPHEN 325 MG TABLET PO PRN (12:15)
[2023-06-18] MEDS ORDERED: guaiFENesin/CODEINE 10ML UDC PO PRN (12:15)
[2023-06-18] MEDS ORDERED: LACTULOSE SYRUP 10GM/15ML 30ML UDC PO PRN (12:15)
--- NOTE | 2023-06-18 12:20 | PM&R Post Admission Assessment ---
PM&R Date of Visit: Jun 18, 2023 Time of Visit: 13:15 History of Present Illness Chief complaint: COVID induced myopathy with confusion HPI: This is a 73-year-old male clinic patient of mine with a past medical history of dementia valve replacement on chronic kidney [id number] with hypertension hyperlipidemia who presented to inpatient rehab in need of recovery from COVID induced myopathy. After being diagnosed with COVID he was sent home unable to ambulate or get out of bed. He was admitted on fourth floor and given IV Decadron due to borderline hypoxia but that resolved quickly and was discontinued. He received gentle IV fluids because of dehydration which is helped but minimal amount due to history of cardiomyopathy. He remains on Entresto. He sees neurology on a regular basis for dementia. Past [id number] Hx Past Med/Social Hx: Reviewed Nursing Past Med/Soc Hx, Reviewed and Corrections made Patient Social History Marrital Status: Employed/Student: retired Alcohol Use: Denies Use Smoking Status: Former Smoker 2nd Hand Smoke Exposure: No Recent Hopitalizations: Yes Past Medical History Surgeries: Pacemaker, Valve Replacement Cardiac: Atrial Fibrillation, Coronary Artery Disease, High Cholesterol, Hypertension, Valvular Heart Disease Neurological: Dementia Reproductive: Yes Musculoskeletal: Gout History of Blood Disorders: No Family History No Pertinent Family Hx PM&R Allergy/Meds/Data Review Allergies Coded Allergies: No Known Drug Allergies (Unverified , 08/02/10) Home Medications Scheduled Allopurinol (Allopurinol), 100 MG PO BID, (Reported) Carvedilol (Carvedilol), 3.125 MG PO BID, (Reported) Citalopram Hydrobromide (Citalopram HBr), 20 MG PO HS, (Reported) Donepezil HCl (Donepezil HCl), 10 MG PO HS, (Reported) Furosemide (Furosemide), 20 MG PO Q48H, (Reported) Mexiletine HCl (Mexiletine HCl), 150 MG PO BID, (Reported) Sacubitril/Valsartan (Entresto 49 mg-51 mg Tablet), 0.5 EA PO BID, (Reported) Spironolactone (Spironolactone), 12.5 MG PO Q48H, (Reported) Warfarin Sodium (Warfarin Sodium), 5 MG PO DIOP,MO,,,SA, (Reported) Warfarin Sodium (Warfarin Sodium), 2.5 MG PO WE,FR, (Reported) Discontinued Medications Carvedilol (Coreg), 3.125 MG PO BID Discontinued Reason: Duplicate Order Furosemide (Lasix), 20 MG PO Q48H Discontinued Reason: Duplicate Order Sacubitril/Valsartan (Entresto 49 mg-51 mg Tablet), 1 TAB PO BID Discontinued Reason: Duplicate Order Spironolactone (Aldactone), 12.5 MG PO Q48H Discontinued Reason: Duplicate Order Warfarin Sodium (Warfarin Sodium), 2.5 MG PO FRIDAY, (Reported) Discontinued Reason: Duplicate Order Warfarin Sodium (Warfarin Sodium), 5 MG PO DAILY, (Reported) Discontinued Reason: Duplicate Order Current Medications Current Medications Reviewed Review of Systems Constitutional: see HPI, dizziness, malaise, weakness EENTM: no symptoms reported Respiratory: no symptoms reported Cardiovascular: no symptoms reported Gastrointestinal: no symptoms reported Genitourinary: decreased output Musculoskeletal: back pain, joint pain Skin: no symptoms reported Psychiatric/Neurological: Anxiety, Depressed All Other Systems Reviewed Negative Unless Noted: Yes Physical Exam Physical Exam Vital Signs Capillary Refill : Height, Weight, BMI Height: '" Weight: lbs. oz. kg; 28.50 BMI Method:Stated General Appearance: No Apparent Distress, WD/WN, Chronically ill Eyes: Bilateral Eye Normal Inspection, Bilateral Eye PERRL HEENT: PERRL/EOMI, Normal ENT Inspection, Pharynx Normal Neck: Full Range of Motion, Normal Inspection, Non Tender, Supple, Carotid Bruit Respiratory: Chest Non Tender, Lungs Clear, No Accessory Muscle Use, No Respiratory Distress, Decreased Breath Sounds Cardiovascular: Regular Rate, Rhythm, No Edema, No Gallop, No JVD, No Murmur, Normal Peripheral Pulses, Irregularly Irregular Gastrointestinal: Normal Bowel Sounds, No Organomegaly, No Pulsatile Mass, Non Tender, Soft Back: Normal Inspection, No CVA Tenderness, No Vertebral Tenderness Extremity: Normal Capillary Refill, Normal Inspection, Normal Range of Motion, Non Tender, No Calf Tenderness, No Pedal Edema Neurologic/Psychiatric: Alert, Oriented x3, No Motor/Sensory Deficits, plastic surgery specialist II- XII Norm as Tested, Abnormal Gait, Depressed Affect, Motor Weakness (Severe generalized weakness) Skin: Normal Color, Warm/Dry Lymphatic: No Adenopathy PM&R Medical Assessment & Plan REHAB/MEDICAL ASSESSMENT AND PLAN: REHAB IMPAIRMENT GROUP: Myopathy ETIOLOGIC DIAGNOSIS: COVID The comorbidities that impact the patients function and/or functional outcome by: dementia, generalized weakness placing patient at risk for falls, dehydration on admission but history of cardiomyopathy REHAB PLAN: The patient is being admitted to our comprehensive inpatient rehabilitation facility and can tolerate the intensity of service consisting of at least: 180 minutes of therapy a day, 5 out of 7 days a week Rehab treatment will consist of: PT and OT will focus on regaining function with use of assistive devices in order to regain ambulation stamina and ADLs independence The patient/family has a good understanding of our discharge process and will benefit from an interdisciplinary inpatient rehabilitation program. The patient has potential to make improvement and is in need of at least two of the following multidisciplinary therapies including but not limited to physical, occupational, speech, and prosthetics and orthotics. Additionally the patient will need services from respiratory, nutritional services, wound care, psychology, etc. (Customize this to each patient). Given the patients complex condition and risk of further medical complications, rehabilitation services cannot be safely or effectively provided at a lower level of care such as a half-way facility. BARRIERS TO DISCHARGE: dementia ESTIMATED LOS: 7 days DISPOSITION: home with spouse RELEVANT CHANGES SINCE PREADMISSION SCREENING: I have compared the patients medical and functional status at the time of the preadmission screening and there are: no changes PROGNOSIS: good REHABILITATION GOALS: 1. PT and OT will focus on regaining function with use of assistive devices in order to regain ambulation stamina and ADLs independence All the above goals were reviewed with the patient and he/she is in agreement. By signing this document, I acknowledge that I have personally performed a full physical examination on this patient within 24 hours of [facility] and have determined the patient to be able to tolerate the above course of treatment at an intensive level for a reasonable period of time. I will be completing a detailed individualized Plan of Care for this patient by day #4 of the patients stay based upon the Preadmission Screen, the Post-Admission Evaluation, and the therapy evaluations. Admission Dx/Comorbidities: (1) Myopathy ICD Codes: G72.9 - Myopathy, unspecified (2) COVID-19 ICD Codes: U07.1 - COVID-19 (3) Altered mental status ICD Codes: R41.82 - Altered mental status, unspecified Assessment/Plan Assessment and Plan Assess & Plan/Chief Complaint Assessment: Myopathy COVID-19 Altered mental status Dementia Pacemaker Valve replacement Warfarin for anticoagulation Chronic kidney disease Gout Dehydration on admit Cardiomyopathy on Entresto Plan: PT and OT Home meds Monitor closely DEE KAYE DO Jun 18, 2023 12:19
[2023-06-18 13:42] VITALS: BP 117/77
--- OUTSIDE RECORDS SUMMARY | 2023-06-18 13:49 | XMS REPORT | Clinical Summary ---
Author Author [facility] Organization [facility] Address Unknown Phone Unavailable Care Team Providers Care Sheetrock Applicator Name Role Phone Mike Boyle MD Unavailable Mike Lundberg MD Unavailable [phone] Brittanie Lancaster MD Unavailable [phone] Vinod Fitzpatrick MD Unavailable Aleks Souza MD Unavailable [phone] Skyler Magaña MD PCP [phone] Source Comments Some departments are not documenting in the electronic medical record. If you do not see the information that you expected, contact Release of Information in the Health Information Management department at [phone] for further assistance in locating additional records.[facility] Allergies No known active allergies Medications Medication Sig Dispensed Refills Start Date End Date Status aspirin EC 81 mg PO tablet Take 81 mg by mouth Daily. 0 Active benazepril (LOTENSIN) 40 mg PO tablet Take 40 mg by mouth Daily. 0 Active amlodipine (NORVASC) 10 mg PO tablet Take 10 mg by mouth Daily. 0 Active warfarin (COUMADIN) 5 mg PO tablet Take 1 Tab by mouth At Bedtime Daily. 30 Tab 3 08/29/2010 Active Active Problems Problem Noted Date Diagnosed Date Liver abscess 08/17/2010 Acute respiratory failure 08/17/2010 Subcapsular hematoma of liver 08/17/2010 Coagulopathy 08/17/2010 Pleural effusion 08/17/2010 Pulmonary edema 08/17/2010 Immunizations Name Administration Dates Next Due FLU VACCINE >3YO 09/05/2010 Surgical History Surgery Date Site/Laterality Comments VASECTOMY CARDIAC CATHERIZATION unclear reason Medical History Medical History Date Comments Hypertension Aneurysm (HCC) unknown if abdom inal or thoracic Bicuspid aortic valve Social History Tobacco Use Types Packs/Day Years Used Date Smoking Tobacco: Never Alcohol Use Standard Drinks/Week Comments No 0 (1 standard drink = 0.6 oz pur e alcohol) Sex and Gender Information Value Date Recorded Sex Assigned at Not on file Gender Identity Not on file Sexual Orientation Not on file Obstetrics History Last Filed Vital Signs Vital Sign Reading Time Taken Comments Blood Pressure 114/66 09/24/2010 2:25 PM TIMERS INSPECTOR Pulse 84 09/24/2010 2:25 PM TIMERS INSPECTOR Temperature 36.5 C (97.7 F) 09/24/2010 11:[address] Respiratory Rate - - Oxygen Saturation 98% 09/24/2010 2:25 PM TIMERS INSPECTOR Inhaled Oxygen Concentration - - Weight 80 kg (176 lb 5.9 oz) 09/24/2010 11:00 AM TIMERS INSPECTOR Height 175.3 cm (5' 9") 09/17/2010 1:00 PM TIMERS INSPECTOR Body Mass Index 26.05 09/17/2010 1:00 PM TIMERS INSPECTOR Plan of Treatment Health Maintenance Due Date Last Done Comments COVID-19 VACCINE (#1) 1948 DTAP/TDAP VACCINES (1 - Tdap) 1966 HEPATITIS C SCREENING 1966 PHYSICAL (COMPREHENSIVE) EXAM 1966 SHINGLES RECOMBINANT VACCINE (1 of 2) 1998 PNEUMOCOCCAL VACCINE 65+ YRS (1 - PCV) 2013 COLORECTAL CANCER SCREENING 08/28/2020 08/28/2010 DEPRESSION SCREENING 10/06/2022 INFLUENZA VACCINE (#1) 2023 09/05/2010 Advance Directives Latest Code Status on File Code Status Date Activated Date Inactivated Comments Full Code 09/24/2010 12:14 PM 09/25/2010 5:06 AM Code Status History Code Status Date Activated Date Inactivated Comments Full Code 08/19/2010 11:29 PM 08/29/2010 9:49 PM Full Code 08/17/2010 7:24 PM 08/19/2010 11:29 PM Care Teams Sheetrock Applicator Relationship Specialty Start Date End Date Skyler Magaña MD [address] [place], [place] [id number] PCP - General 10/03/10 Mike Boyle MD [address] [place] [address] Internal Medicine 08/17/10 Mike Lundberg MD [address] [facility] [address] [place] [id number] Pulmonary Disease 08/18/10 Brittanie Lancaster MD [address] [place] [address] Internal Medicine 08/21/10 Vinod Fitzpatrick MD [address] [facility] [address] [place] [address] Internal Medicine 09/05/10 Aleks Souza MD [address] [place] [address] [address] [place] [address] General Surgery 09/14/10
--- OUTSIDE RECORDS SUMMARY | 2023-06-18 13:49 | XMS REPORT ---
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 Name Role Phone CHEPE MENDOZA Unavailable ALLERGIES No Known Allergies ENCOUNTERS from 1950 to 2023-05-16 Encounter Location Date Provider Diagnosis [facility] [address] [facility] [id number] [place] [address] May, CHEPE REJI Exposure to COVID-19 virus Z20.828 and Encounter for screening laboratory testing for COVID-19 virus Z11.59 SOCIAL HISTORY Sex Assigned At : Social History Observation Description Sex Assigned At Unknown PHQ2 Question Answer Notes In the last 2 weeks, how oft en have you had little interest or pleasure in doing things? Not at all In the last 2 weeks, how oft en have you been feeling down, depressed, or hopeless? Not at all Total PHQ2 Score 0 REASON FOR REFERRAL No Information MEDICATIONS Medication SIG (Take, Route, Frequency, Duration) Notes Start Date End Date Status Citalopram Hydrobromide 10 MG 1 tablet Orally Once a day Active Warfarin Sodium 5 MG 1 tablet Orally Onc e a day Active Allopurinol 100 MG as directed Orally O nce a day Active Carvedilol 12.5 MG 1 1/2 tablets Orally Twice a day Active Entresto 49-51 MG 1 tablet Orally Once a day Active Furosemide 40 MG 1 tablet Orally Once a day Active REASON FOR VISIT no symptoms- positive exposure - black rogue MEDICAL (GENERAL) HISTORY Type Description Date Medical History high blood pressure Medical History heart valve replacements Medical History Pt has a pace maker Surgical History Valve replacements x2 Surgical History pacemaker Hospitalization History Surgeries Hospitalization History liver abscess MENTAL STATUS No Information ASSESSMENTS Encounter Date Diagnosis Assessment Notes Treatment Notes Treatment Clinical Notes May, Exposure to COVID-19 virus (ICD-10 - Z20.828) May, Encounter for screening laboratory testing for COVID-19 virus (ICD-10 - Z11.59) May, Other Patient was instructed to self-isolate at home until further instruction from clinic staff PLAN OF TREATMENT No Information Insurance Providers Payer Name Payer Address Payer Phone Insured Name Patient Relationship to Insured Coverage Start Date Coverage End Date Subscriber Number Group Number NGS MEDICARE Part A [facility] [address] [facility] [phone] Manjinder Rojas Self - patient is the insured 5 [id number]
--- NOTE | 2023-06-18 14:08 | Physical Therapy Evaluation ---
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 Date: Jun 16, 2023 Therapy Diagnosis Therapy Diagnosis: Proximal weakness; Decreased functional mobility Precautions Precautions/Isolations: Contact Isolation, Droplet Isolation, Fall Prevention, Standard Precautions Weight Bear Status Right Lower Extremity: Right Full Weight Bearing Left Lower Extremity: Left Full Weight Bearing Referral Physician: Ricardo Reason for Referral: Evaluation/Treatment Medical History Pertinent Medical History: Atrial Fib, CAD, Dementia, HTN Additional Medical History Cardiac cath, pacemaker placement, 2 heart valves, HTN, TIA's Dementia, A-Fib, Cardiomyopathy, Chronic edema, CAD, High cholesterol, Valvular heart disease, Arthritis, Gout Current History ER on 06/16/23 for COVID+/weakness/AMS; Admitted to ARU on 06/18/23 Reviewed History: Yes Social History Home: Multilevel Current Living Status: Significant Other Entry Into Home: Stairs With Railing PT Steps Into Home: 5 PT Steps Inside Home: 9 Pt lives at home with his spouse in a split-level home with 5 steps to enter/exit with B HR; 9 steps in the home with L HR; Walk-in shower, no SC, no GBs, toilet riser Prior Prior Level of Function SCALE: Activities may be completed with or without assistive devices. 1-Jjeayeotrl-dgrrvdw completes the activity by him/herself with no assistance from a helper. 5-Set-up or Clean-up Assistance-helper sets up or cleans up; patient completes activity. [place] assists only prior to or following the activity. 4-Supervision or Touching Assistance-helper provides verbal cues and/or touching/steadying and/or contact guard assistance as patient completes activity. Assistance may be provided throughout the activity or intermittently. 3-Partial/Moderate Assistance-helper does LESS THAN HALF the effort. [place] lif ts, holds or supports trunk or limbs, but provides less than half the effort. 2-Substantial/Maximal Assistance-helper does MORE THAN HALF the effort. [place] lifts or holds trunk or limbs and provides more than half the effort. 2-Yuyaxkqsk-aokxiq does ALL the effort. Patient does none of the effort to complete the activity. Or, the assistance of 2 or more helpers is required for the patient to complete the activity. If activity was not attempted, code reason: 7-Patient Refused. 9-Not Applicable-not attempted and the patient did not perform the activity before the current illness, exacerbation or injury. 10-Not Attempted due to Environmental Limitations-(lack of equipment, weather restraints, etc.). 88-Not Attempted due to Medical Conditions or Safety Concerns. Bed Mobility: 6 Transfers (B,C,W/C): 6 Gait: 6 Stairs: 6 Wheelchair Mobility: 9 Indoor Mobility (Ambulation): Independent Stairs: Independent Prior Devices Use: Mechanical lift (lift chair ) At [facility], pt was Mod I with no AD, but furniture surfing; Not driving; Has a SPC and FWW; lift chair PT Evaluation-Current Subjective Pt is agreeable to PT. Denies pain Pain Numeric Pain Scale: 0-No Pain Location: No Pain Reported Section J - Health Conditions 1. Rarely or not at all 2. Occasionally 3. Frequently 4. Almost constantly 8. Unable to answer Pain Effect on Sleep: 1 Pain Interference with Therapy: 1 Pain Interference w/Day-to-Day: 1 Pt/Family Goals Safely return home ROM/Strength ROM Upper Extremities See OT eval ROM Lower Extremities WFL Strength Upper Extremities See OT eval Strength Lower Extremities B ankle MMT = 4/5 B knee MMT = 4-/5 B hip MMT = 3+/5 Decreased core strength Integumentary/Posture Integumentary See nursing note Bowel Incontinence: No Bladder Incontinence: Yes Sensory Vision: Wears Glasses Hearing: Functional Hand Dominance: Right Sensation Right Upper Extremit: Intact Sensation Left Upper Extremity: Intact Sensation Right Lower Extremit: Intact Sensation Left Lower Extremity: Intact Transfers Roll Left & Right (QC): 4 (SBA ) Sit to Lying (QC): 4 (SBA ) Lying to Sitting/Side of Bed(Q: 4 (SBA ) Sit to Stand (QC): 4 (CGA ) Chair/Bfk-mn-Tbybm Xfer(QC): 4 (CGA) Toilet Transfer (QC): 4 (CGA ) Car Transfer (QC): 88 (Pt isolated to room secondary to covid ) Gait Does the Patient Walk?: Yes Mode of Locomotion: Both Anticipated Mode of Locomotion: Walk Walk 10 feet (QC): 3 (Min A ) Walk 50 ft with 2 Turns(QC): 88 (Proximal weakness ) Walk 150 ft (QC): 88 (Proximal weakness ) Walking 10ft/uneven surface-QC: 88 (Proximal weakness; balance/safety ) Distance: 15ft Gait Assistive Device: FWW Wheelchair Training Does the Pt Use a Wheelchair?: No Wheel 50 ft with 2 turns (QC): 9 Wheel 150 ft (QC): 9 Type of Wheelchair: N/A Stairs #of Steps: 1 1 Step (curb) (QC): 1 (Min/Mod A x 2 for balance/safety ) 4 Steps (QC): 88 (Balance and safety ) 12 Steps (QC): 88 (Balance and safety ) Walking Assistive Device: Walker Balance Sitting Static: Good Sitting Dynamic: Fair Standing Static: Fair Standing Dynamic: Poor (poor core strength ) Picking up an Object (QC): 3 (Min/Mod A for balance/safety ) Special Test Comments [facility] standing balance scale = 3/5 due to poor core strength (goal = 4/5) Treatment PT eval completed (15 min; 8502-4906); OT eval completed - Not-billed (15 min; [id number]); PT/OT co-tx (75 min; 4614-1152), skills of 2 clinicians required to decrease fall risk, increase functional mobility, and increase awareness for functional tasks. PT focusing on bed mobility, functional transfers, ambulation with FWW, and increasing activity tolerance for functional tasks. OT focusing on ADLs, functional mobility, and increasing activity tolerance for functional tasks. Pt completed bed mobility with SBA. Pt completed functional transfers with CGA. Pt is isolated to his room for [facility], so pt only ambulated ~ 15ft with the FWW and Min A. Pt completed a shower (see OT note for assistance level for bathing). Pt edu on, and completed LE and UE HEP. Pt lying supine in bed upon completion of treatment session with call light in reach, spouse and RN present, and all needs met. Assessment/Needs Pt tolerated PT well with good effort Rehab Potential: Good Post Rehab Potential-Barriers: Proximal weakness; Decreased safety/cognition Equipment Needs SC PT Longterm Goals Longterm Goals PT Longterm Goals Time Frame: Jul 02, 2023 Roll Left to Right (QC): 6 (Pt will be Mod I with bed mobility and transfers. ) Sit to Lying (QC): 6 (Pt will be Mod I with bed mobility and transfers. ) Lying-Sitting on Side/Bed(QC): 6 (Pt will be Mod I with bed mobility and transfers. ) Sit to Stand (QC): 6 (Pt will be Mod I with bed mobility and transfers. ) Chair/Sei-uw-Hcdws Xfer(QC): 6 (Pt will be Mod I with bed mobility and transfers. ) Toilet/Commode Transfer (QC): 6 (Pt will be Mod I with bed mobility and transfers. ) Car Transfer (QC): 6 (Pt will be Mod I with bed mobility and transfers. ) Does the Patient Walk: Yes Walk 10 feet (QC): 4 (Pt will be SBA for walking and stairs to safely return home with spouse. ) Walk 10ft-Uneven Surface(QC): 4 (Pt will be SBA for walking and stairs to safely return home with spouse. ) Walk 50ft with 2 Turns (QC): 4 (Pt will be SBA for walking and stairs to safely return home with spouse. ) Walk 150 ft (QC): 4 (Pt will be SBA for walking and stairs to safely return home with spouse. ) Does the Pt use WC or Scooter?: No Wheel 50 feet with 2 turns (QC: 9 Type: N/A Wheel 150 feet: 9 Type: N/A 1 Step (curb) (QC): 4 (Pt will be SBA for walking and stairs to safely return home with spouse. ) 4 Steps (QC): 4 (Pt will be SBA for walking and stairs to safely return home with spouse. ) 12 Steps (QC): 4 (Pt will be SBA for walking and stairs to safely return home with spouse. ) Picking up an Object (QC): 4 (Pt will be SBA for walking and stairs to safely return home with spouse. ) KU standing balance scale goal = 4/5 PT Plan Problem List Problem List: Activity Tolerance, Functional Strength, Safety, Balance, Gait, Transfer, Bed Mobility, ROM Treatment/Plan Treatment Plan: Continue Plan of Care Treatment Plan: Bed Mobility, Concurrent Therapy, Education, Functional Activity Jemal, Functional Strength, Group Therapy, Gait, Safety, Therapeutic Exercise, Transfers Treatment Duration: Jul 02, 2023 Frequency: At least 5 of 7 days/Wk (IRF) Estimated Hrs Per Day: 1.5 hours per day Patient and/or Family Agrees t: Yes Safety Risks/Education Patient Education: Gait Training, Transfer Techniques, Steps, Issued Written HEP, Correct Positioning, Safety Issues Teaching Recipient: Patient, Significant Other Teaching Methods: Demonstration, Discussion Response to Teaching: Verbalize Understanding, Return Demonstration, Reinforcement Needed Discharge Recommendations Therapy Discharge Recommendati: Home & Family, Post Acute PT Equpiment Recommendations-D/C: Shower Chair Discharge Status/Home Program Cont per POC Barriers to Progress Proximal weakness; Cognition; Balance/safety awareness Target Placement Home with spouse assistance Time Time In: 1310 Time Out: 1455 DATE: Jun 18, 2023 Total Billed Treatment Time: 90 Total Billed Treatment 90 min total; PT eval completed (15 min; 3795-5071); OT eval completed - Not- billed (15 min; [id number]); PT/OT co-tx (75 min; 9049-2680) 1 visit EV GT x 1 EX x 1 FA x 3 ALEC CEJA PT Jun 18, 2023 14:08
--- NOTE | 2023-06-18 15:36 | Occupational Therapy Eval ---
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 Onset Date: Jun 16, 2023 Therapy Diagnosis Therapy Diagnosis: proximal wekaness; decreased ADL performance Precautions Precautions/Isolations: Contact Isolation, Droplet Isolation, Fall Prevention, Standard Precautions Safety Interventions: Bed Exit Alarm Weight Bear Status No restrictions Referral Physician: Ricardo Referral Reason: Activity Tolerance, Self Care, Evaluation/Treatment, Strengthening/ROM Medical History Pertinent Medical History: Atrial Fib, CAD, Dementia, HTN Additional Medical History cardiac cath, pacemaker placement, 2 heart valves, HTN, TIA's, dementia, A-fib, cardiomyopathy, chromic edema, CAD, high cholesterol, valvular heart disease, arthritis, gout Reviewed History: Yes Social History Home: Multilevel Current Living Status: Significant Other Entry Into Home: Stairs With Railing Steps Into Home: 5 Steps Inside Home: 9 ADL-Prior Level of Function SCALE: Activities may be completed with or without assistive devices. 8-Vzxyyvauun-qghkqlx completes the activity by him/herself with no assistance from a helper. 5-Set-up or Clean-up Assistance-helper sets up or cleans up; patient completes activity. [place] assists only prior to or following the activity. 4-Supervision or Touching Assistance-helper provides verbal cues and/or touching/steadying and/or contact guard assistance as patient completes activity. Assistance may be provided throughout the activity or intermittently. 3-Partial/Moderate Assistance-helper does LESS THAN HALF the effort. [place] lifts, holds or supports trunk or limbs, but provides less than half the effort. 2-Substantial/Maximal Assistance-helper does MORE THAN HALF the effort. [place] lifts or holds trunk or limbs and provides more than half the effort. 6-Ydzwvbylk-lrupvm does ALL the effort. Patient does none of the effort to complete the activity. Or, the assistance of 2 or more helpers is required for the patient to complete the activity. If activity was not attempted, code reason: 7-Patient Refused. 9-Not Applicable-not attempted and the patient did not perform the activity before the current illness, exacerbation or injury. 10-Not Attempted due to Environmental Limitations-(lack of equipment, weather restraints, etc.). 88-Not Attempted due to Medical Conditions or Safety Concerns. ADL PLOF Comments Lives at home with spouse in a split level home with 5 steps to enter/exit with BHR; 9 steps in home with LHR; walk in shower, no SC, no GB's, toilet riser. Self Care: Needed Some Help Functional Cognition: Needed Some Help DME/Equipment: Toilet/Riser DME/Equipment Comments FWW, Occupation: Retired Drive Self: No OT Current Status Subjective Pt and consented to OT evaluation. Co-treat with PT secondary to decreased endurance, activity tolerance, and the need of a second person for safety to increase (I) with functional tasks and to decrease the burden of care. PT focusing on functional mobility and gait while OT focusing on ADLs, assisting with standing, and strengthening BUE's. Pain Numeric Pain Scale: 0-No Pain Location: No Pain Reported Mental Status/Objective Pt with baseline dementia. Pt able to state year and day of the week, but unable to state month. Attachments: IV Current Glasses/Contacts: Yes Hearing Aids: No Dentures/Partials: No Hand Dominance: Right Upper Extremity ROM AROM WFL to perform basic ADLs/IADLs Upper Extremity Coordination WFL based on observation when performing ADLs Upper Extremity Sensation No numbness/tingling reported by pt in BUE's Upper Extremity Strength 4/5 grossly in BUE's ADL-Treatment Eating (QC): 5 (set-up A to open packages and containers) Oral Hygiene (QC): 4 (SBA to perform oral care seated in WC at sink; pt able to open tooth paste bottle, but required verbal cues for sequencing/initiation of task. ) Shower/Bathe Self (QC): 3 (Partial/mod A for bathing in shower in patient's bathroom; pt utilized GB's, hand held shower head, and built in bench; min A needed for standing to clean gely area and buttocks utilizing GB's; pt required mod/max verbal cues for sequencing/initiation.) Upper Body Dressing (QC): 3 (Partial/mod A to don shirt seated in WC; verbal cues needed to navigate (B) sleeves and to pull shirt down over abdomen/back. ) Lower Body Dressing (QC): 3 (Partial/mod A for LBD with pt able to thread BLE's into pants legs seated in WC; pt required verbal cues to pull pants up to knees before performing sit<>stand; sit<>stand performed with CGA x 1 where pt pulled pants over hips; therapist with CGA secondary to safety/steadiness) On/Off Footwear (QC): 3 (Partial/mod A for footwear with pt requiring (A) to don/doff socks seated in bedside chair/WC. stated that this is pt's baseline as he has a difficult time reaching to his feet and has a hard time performing figure 4 position.) Toileting Hygiene (QC): 3 (Partial/mod A for thoroughness with clean gely area and buttocks; pt able to manage clothing. ) at bedside during evaluation and stated that pt was able to perform ADLs at home, but he did require some (A) with sequencing/needing cues. Other Treatments BUE strengthening ex's performed with red theraband while seated in WC performing 1 set x 10 reps of tricep extension, elbow flex/ext, and horizontal abduction to increase BUE strength, activity tolerance, and endurance to increase (I) with ADLs and IADLs. Pt was given a HEP. OT will continue to address exercises with pt and family. See PT's note for specifics with functional mobility performed during session. Education OT Patient Education: Instructions to caregiver, Modified ADL techniques, Progress toward Goal/Update tx plan, Purpose of tx/functional activities, Reviewed precautions, Rehab process, Safety issues, Transfer techniques, Use of adapted equipment Teaching Recipient: Patient, Family Teaching Methods: Demonstration, Discussion Response to Teaching: Reinforcement Needed BIMS CAM BIMS Expression of Ideas and Wants: Difficulty Understanding Verbal Content: Usually Understands Brief Interview/Mental Status: Yes IRF PHIL BIMS: IRF PHIL BIMS Response (Comments) Value Repitition of Three Words Three 3 Recalls Socks Yes, After Cueing (Wear) 1 Recalls Blue Yes, After Cueing (Color) 1 Recalls Bed No, Could Not Recall 0 Year Correct 3 Month Missed by 1 Mo/No Answer 0 Day Correct 1 Total [address] Mental [address] No CAM Mental Status Change/Baseline: 0 Inattention: 0 Disorganized thinkin Altered level of consciousness: 0 OT Detention Goals Exhaust Tender Goals Eating (QC): 6 Oral Hygiene (QC): 6 Toileting Hygiene (QC): 4 Shower/Bathe Self (QC): 4 Upper Body Dressing (QC): 5 Lower Body Dressing (QC): 4 On/Off Footwear (QC): 5 1=Demonstrate adherence to instructed precautions during ADL tasks. 2=Patient will verbalize/demonstrate understanding of assistive devices/modifications for ADL. 3=Patient will improve strength/tolerance for activity to enable patient to perform ADL's. OT Education/Plan Problem List/Assessment Assessment: Decreased Activ Tolerance, Decreased Safety Aware, Decreased UE Strength, Impaired Cognition, Impaired Funct Balance, Impaired I ADL's, Impaired Self-Care Skills Discharge Recommendations Plan/Recommendations: Continue POC Therapy Discharge Recommendati: 24 Hour Supervision, Home & Family, Post Acute OT Comment OT will continue to assess DME needs pending pt's progression Barriers to Progress cognition, activity tolerance, ADL performance, endurance, functional mobility Target Placement Home with /family; HHOT Patient/Family Goals Return to PLOF Treatment Plan/Plan of Care Treatment,Training & Education: Yes Patient would benefit from OT for education, treatment and training to promote independence in ADL's, mobility, safety and/or upper extremity function for ADL's. Plan of Care: ADL Retraining, Caregiver Training, Cognitive Retraining, Functional Mobility, Group Exercise/Act as Ind, UE Funct Exercise/Act Treatment Duration: Jun 25, 2023 Frequency: At least 5 of 7 days/Wk (IRF) Estimated Hrs Per Day: 1.5 hours per day Agreement: Yes Rehab Potential: Good Ending session, pt remained semi-reclined in bed with needs/call light in reach with family and RN at bedside. Time Start Time: 13:25 Stop Time: 14:55 DATE: Jun 18, 2023 Total Time Billed (hr/min): 90 Billed Treatment Time EVM 1 (15 minutes) from 1325 - 1340 Co-treat with PT (75 minutes) from 1340 - 1455 ADL 4 EX 1 CHAS VILLANUEVA, OT Jun 18, 2023 15:36
--- NOTE | 2023-06-18 16:05 | ST Cognitive Linguistic Eval ---
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 Silva Reason for Referral: Consult Medical History Pertinent Medical History: Atrial Fib, CAD, Dementia, HTN Current History Covid + Reviewed History: Yes Social History Current Living Status: Significant Other Speech PLF-Current Status Prior Level of Function Lives at home with with supervision Subjective The pt was alert and appropriate throughout assessment Language Eval: Verbal Language Completes Spontaneous Greeting: Functional Requests Basic Needs: Functional Objective Formal/Standardized Tests MMSE Results The pt was oriented to month and year, town, city. Registration was 2/3, recall was 1/3. The pt was able to follow command, received 3/5 for reverse spelling. Unable to copy figure or write a sentence. Overall response delay to most questions, both for assessment and conversation. Speech-Plan Treatment Plan Speech Therapy Treatment Plan: Discontinue ST Discussion with care team, OT/PT will address functional needs for ADL's and safety. No speech therapy goals at this time. Swallow screen also completed, with no s/s oral or pharyngeal dysphagia. Frequency: Modified Program (IRF) (no treatment recommended) Estimated Hrs Per Day: Other (no treatment) Rehab Potential: Good Time Speech Therapy Time In: 15:25 Speech Therapy Time Out: 15:55 DATE: Jun 18, 2023 Total Billed Time: 30 Billed Treatment Time 1 LUCIE ESTRELLASISI Jun 18, 2023 16:05
[2023-06-18 20:30] VITALS: BP 122/77
[2023-06-18] MEDS: DOCUSATE SODIUM 100 MG CAPSULE PO SCH (22:28)
[2023-06-18] MEDS: ALLOPURINOL 100 MG TABLET PO SCH (22:28)
[2023-06-18] MEDS: CITALOPRAM 20 MG TABLET PO SCH (22:28)
[2023-06-18] MEDS: carvediloL 3.125 MG TABLET PO SCH (22:28)
[2023-06-18] MEDS: DONEPEZIL 10 MG TABLET PO SCH (22:29)
[2023-06-18] MEDS: SENNA W/DOCUSATE TABLET PO SCH (22:29)
[2023-06-19 06:09] LABS: BASOPHILS % (AUTO) 0 % (0-10); EOSINOPHILS % (AUTO) 0 % (0-10); HEMATOCRIT 47 % (40-54); HEMOGLOBIN 16.1 g/dL (13.3-17.7); LYMPHOCYTES # (AUTO) 1.2 10^3/uL (1.0-4.0); LYMPHOCYTES % (AUTO) 19 % (12-44); MEAN CORPUSCULAR HEMOGLOBIN 32 pg (25-34); MEAN CORPUSCULAR HGB CONC 34 g/dL (32-36); MEAN CORPUSCULAR VOLUME 95 fL (80-99); MEAN PLATELET VOLUME 9.8 fL (9.0-12.2); MONOCYTES # (AUTO) 0.4 10^3/uL (0.0-1.0); MONOCYTES % (AUTO) 7 % (0-12); NEUTROPHILS # (AUTO) 4.5 10^3/uL (1.8-7.8); NEUTROPHILS % (AUTO) 74 % (42-75); PLATELET COUNT 94 10^3/uL (130-400); WHITE BLOOD COUNT 6.1 10^3/uL (4.3-11.0)
--- NOTE | 2023-06-19 06:17 | Individualized Plan of Care ---
Individualized Plan of Care Rehab Nursing IPOC Order Admission Date Jun 18, 2023 at 13:10 Current Orders Orders Admission Order(Inpt,Obs,Sdc) (06/18/23 12:13) Vital Signs: Per Unit Policy ( 08,16,00 (06/18/23 12:13) Gavin Garcia , (06/18/23 12:13) Sequential Compression Device [id number] (06/18/23 12:13) Software Development Specialist-Inpt Rehab Con (06/18/23 12:13) Rehab Nursing Orders-Ipoc (06/18/23 12:13) Physical Therapy Rehab Orders (06/18/23 12:13) Occupational Therapy Rehab Ord (06/18/23 12:13) Speech Therapy Rehab Orders (06/18/23 12:13) Cbc With Automated Diff (06/19/23 06:00) Comprehensive Metabolic Panel (06/19/23 06:00) Precautions (Aru) (06/18/23 12:13) Weekly Weight WEEK (06/18/23 12:13) Rehab-Intensity Of Therapy (06/18/23 12:13) Initiate Admission Nursing Pro .admission (06/18/23 12:13) Alprazolam Tablet (Alprazolam Tablet) (06/18/23 12:15) Calcium Carbonate Chew Tablet (Calcium C (06/18/23 12:15) Diphenhydramine Tablet (Diphenhydramine (06/18/23 12:15) Docusate Sodium Capsule (Docusate Sodium (06/18/23 21:00) Docusate Sodium Capsule (Docusate Sodium (06/18/23 12:15) Bisacodyl Suppository (Bisacodyl Supposi (06/18/23 12:15) Lactulose Oral Solution (Enulose Oral So (06/18/23 12:15) Na Phos/Na Biphos Adult Enema (Na Phos/N (06/18/23 12:15) Guaifenesin/Codeine Syrup (Guaifenesin/C (06/18/23 12:15) Loperamide Capsule (Loperamide Capsule) (06/18/23 12:15) Melatonin Tablet (Melatonin Tablet) (06/18/23 12:15) Polyethylene Glycol Powder (Polyethylen (06/18/23 21:00) Ondansetron Oral Dissolve Tab (Ondanset (06/18/23 12:15) Senna W/Docusate Tablet (Senna W/Docusat (06/18/23 21:00) Acetaminophen Tablet (Acetaminophen Ta (06/18/23 12:15) Code/Resuscitation (06/18/23 12:13) Initiate Admission Nursing Pro .admission (06/18/23 12:13) Protime With Inr (06/19/23 06:00) Admission Arrival Bed Request (06/18/23 13:10) General/Regular (06/18/23 Dinner) Allopurinol Tablet (Allopurinol Tablet) (06/18/23 21:00) Carvedilol Tablet (Carvedilol Tablet) (06/18/23 21:00) Citalopram Tablet (Citalopram Tablet) (06/18/23 21:00) Donepezil Tablet (Donepezil Tablet) (06/18/23 21:00) Mexiletine Capsule (Mexiletine Capsule (06/19/23 09:00) Warfarin Tablet (Coumadin Tablet) (06/20/23 18:00) Warfarin Tablet (Coumadin Tablet) (06/19/23 18:00) Furosemide Tablet (Furosemide Tablet) (06/19/23 09:00) Spironolactone Tablet (Spironolactone Ta (06/20/23 09:00) Sacubitril/Valsartan 24/26 Mg (Sacubitri (06/19/23 09:00) Patient Visit (06/18/23 ) Speech Sound Lang Comp (06/18/23 ) Patient Visit (06/18/23 ) Pt Eval High Complexity (06/18/23 ) Patient Visit (06/18/23 ) Gait Training, Ea 15 Min (06/18/23 ) Exercise Therap, Ea 15 Min (06/18/23 ) Functional Activities, Ea 15 (06/18/23 ) Isolation Precautions (06/19/23 10:16) Patient Visit (06/19/23 ) Functional Activities, Ea 15 (06/19/23 ) Gait Training, Ea 15 Min (06/19/23 ) Exercise Therap, Ea 15 Min (06/19/23 ) Rehab Nursing Orders: Ongoing Assess. of Cognitive Status, Ongoing Assess. of Function Status, Bladder Management, Bladder Scan, Bladder Training, Bowel Management, Bowel Training, Disease Management & Educaiton, DVT Prophylaxis, Fall Prevention, Fluid/Electrolyte/Nutrition Mgmt, Infection Prevention, Medication Management & Education, Management of Risks & Complications, Management of Skin Intergrity, Nutrition Management, Pain Management, Patient/Family Support, Safety Management Intensity of Therapy to be met Patient to be seen: Min.3h per day/5 of 7d PT IPOC Problem List: Activity Tolerance, Functional Strength, Safety, Balance, Gait, Transfer, Bed Mobility, ROM Treatment Plan: Continue Plan of Care Bed Mobility, Concurrent Therapy, Education, Functional Activity Jemal, Functional Strength, Group Therapy, Gait, Safety, Therapeutic Exercise, Transfers Treatment Duration: Jul 02, 2023 Frequency: At least 5 of 7 days/Wk (IRF) Estimated Hrs Per Day: 1.5 hours per day OT IPOC Problems: Decreased Activ Tolerance, Decreased Safety Aware, Decreased UE Strength, Impaired Cognition, Impaired Funct Balance, Impaired I ADL's, Impaired Self-Care Skills OT Treatment, Training and Edu: Yes Plan of Care: ADL Retraining, Caregiver Training, Cognitive Retraining, Functional Mobility, Group Exercise/Act as Ind, UE Funct Exercise/Act Treatment Duration: Jun 25, 2023 Frequency: At least 5 of 7 days/Wk (IRF) Estimated Hrs Per Day: 1.[address] IPOC Speech Therapy Treatment Plan: Discontinue ST Treatment Duration: Jun 19, 2023 Frequency: Modified Program (IRF) (no treatment recommended) Estimated Hrs Per Day: Other (no treatment) Software Development Specialist/Case Mgmt Software Development Specialist/Case Managemen: Discharge Planning Dietitian/Info Print Press Operator Dietitian/Info Print Press Operator to monitor nutritional status and make changes and/or recommendations as needed and work with speech pathology on dietary upgrades as the occur. Physician IPOC Medical Issues being managed closely and that require the 24 hour availability of a physician: Recent COVID induced myopathy will require close monitoring for any medical complications which could occur in patient of complicated cardiac history and dementia Medical Issues: Bowel/Bladder Function, DVT Prophylaxis, Falls Precautions, Fluid/Electrolyte/Nutrition Balance, Infection Protection, Pain Management Brief Synthesis of Preadmission Screen, Post-Admission Evaluation, and Therapy Evaluations: PT OT will focus on regaining function in order to increase stamina with AD and increase independence in order to return home to live independently with spouse Medical Prognosis: Good Anticipated Length of Stay: 7 days DEE KAYE DO Jun 19, 2023 06:17
--- NOTE | 2023-06-19 06:17 | PM&R Progress Note ---
Subjective HPI/CC On Admission Date Seen by Provider: Jun 19, 2023 Time Seen by Provider: 12:30 Subjective/Events-last exam 06/19/2023: Improved overall at bedside Appears more improved Very weak Incontinence is a new issue and likely related to COVID Review of Systems General: Fatigue, Malaise Objective Exam Vital Signs Vital Signs Date Time Temp Pulse Resp B/P (MAP) Pulse Ox O2 Delivery O2 Flow Rate FiO2 06/19/23 17:03 60 18 99/62 (74) 96 Room Air 06/19/23 08:00 37.0 Capillary Refill : General Appearance: No Apparent Distress, WD/WN, Chronically ill HEENT: PERRL/EOMI, Normal ENT Inspection, Pharynx Normal Neck: Full Range of Motion, Normal Inspection, Non Tender, Supple, Carotid Bruit Respiratory: Chest Non Tender, Lungs Clear, No Accessory Muscle Use, No Respiratory Distress, Decreased Breath Sounds Cardiovascular: Regular Rate, Rhythm, No Edema, No Gallop, No JVD, No Murmur, Normal Peripheral Pulses, Irregularly Irregular Gastrointestinal: Normal Bowel Sounds, No Organomegaly, No Pulsatile Mass, Non Tender, Soft Back: Normal Inspection, No CVA Tenderness, No Vertebral Tenderness Extremity: Normal Capillary Refill, Normal Inspection, Normal Range of Motion, Non Tender, No Calf Tenderness, No Pedal Edema Neurologic/Psychiatric: Alert, Oriented x3, No Motor/Sensory Deficits, catering sales manager II- XII Norm as Tested, Abnormal Gait, Depressed Affect, Motor Weakness (Severe generalized weakness) Skin: Normal Color, Warm/Dry Lymphatic: No Adenopathy Results/Procedures Lab Laboratory Tests 06/19/23 05:17 Patient resulted labs reviewed. FIM Transfers Therapy Code Descriptions/Definitions Functional [place] Measure: 0=Not Assessed/NA 4=Minimal Assistance 1=Total Assistance 5=Supervision or Setup 2=Maximal Assistance 6=Modified [place] 3=Moderate Assistance 7=Complete IndependenceSCALE: Activities may be completed with or without assistive devices. 8-Pbmdzldxnj-gegzbyq completes the activity by him/herself with no assistance from a helper. 5-Set-up or Clean-up Assistance-helper sets up or cleans up; patient completes activity. [place] assists only prior to or following the activity. 4-Supervision or Touching Assistance-helper provides verbal cues and/or t ouching/steadying and/or contact guard assistance as patient completes activity. Assistance may be provided throughout the activity or intermittently. 3-Partial/Moderate Assistance-helper does LESS THAN HALF the effort. [place] lifts, holds or supports trunk or limbs, but provides less than half the effort. 2-Substantial/Maximal Assistance-helper does MORE THAN HALF the effort. [place] lifts or holds trunk or limbs and provides more than half the effort. 2-Lbbtsiosx-qeleje does ALL the effort. Patient does none of the effort to complete the activity. Or, the assistance of 2 or more helpers is required for the patient to complete the activity. If activity was not attempted, code reason: 7-Patient Refused. 9-Not Applicable-not attempted and the patient did not perform the activity before the current illness, exacerbation or injury. 10-Not Attempted due to Environmental Limitations-(lack of equipment, weather restraints, etc.). 88-Not Attempted due to Medical Conditions or Safety Concerns. Roll Left to Right (QC): 4 (SBA ) Sit to Lying (QC): 4 (SBA ) Sit to Stand (QC): 4 (CGA ) Chair/Mvg-bj-Pzcye Xfer(QC): 4 (CGA) Car Transfer (QC): 88 (Pt isolated to room secondary to covid ) Gait Training Does the Patient Walk?: Yes Walk 10 feet (QC): 3 (Min A ) Walk 50 ft with 2 Turns(QC): 88 (Proximal weakness ) Walk 150 ft (QC): 88 (Proximal weakness ) Walking 10ft/uneven surface-QC: 88 (Proximal weakness; balance/safety ) Gait Assistive Device: FWW Wheelchair Training Does the Pt Use a Wheelchair?: No Wheel 50 ft with 2 turns (QC): 9 Wheel 150 ft (QC): 9 Type of Wheelchair: N/A Stair Training #of Steps: 1 1 Step (curb) (QC): 1 (Min/Mod A x 2 for balance/safety ) 4 Steps (QC): 88 (Balance and safety ) 12 Steps (QC): 88 (Balance and safety ) Balance Picking up an Object (QC): 3 (Min/Mod A for balance/safety ) ADL-Treatment Eating (QC): 5 (set-up A to open packages and containers) Oral Hygiene (QC): 4 (SBA to perform oral care seated in WC at sink; pt able to open tooth paste bottle, but required verbal cues for sequencing/initiation of task. ) Shower/Bathe Self (QC): 3 (Partial/mod A for bathing in shower in patient's bathroom; pt utilized GB's, hand held shower head, and built in bench; min A needed for standing to clean gely area and buttocks utilizing GB's; pt required mod/max verbal cues for sequencing/initiation.) Upper Body Dressing (QC): 3 (Partial/mod A to don shirt seated in WC; verbal cues needed to navigate (B) sleeves and to pull shirt down over abdomen/back. ) Lower Body Dressing (QC): 3 (Partial/mod A for LBD with pt able to thread BLE's into pants legs seated in WC; pt required verbal cues to pull pants up to knees before performing sit<>stand; sit<>stand performed with CGA x 1 where pt pulled pants over hips; therapist with CGA secondary to safety/steadiness) On/Off Footwear (QC): 3 (Partial/mod A for footwear with pt requiring (A) to don/doff socks seated in bedside chair/WC. stated that this is pt's baseline as he has a difficult time reaching to his feet and has a hard time performing figure 4 position.) Toileting Hygiene (QC): 3 (Partial/mod A for thoroughness with clean gely area and buttocks; pt able to manage clothing. ) Assessment/Plan Assessment and Plan Assess & Plan/Chief Complaint Assessment: Myopathy COVID-19 Altered mental status Dementia Pacemaker Valve replacement Warfarin for anticoagulation Chronic kidney disease Gout Dehydration on admit Cardiomyopathy on Entresto Plan: PT and OT Home meds Monitor closely 06/19/2023: Monitor O2 Urinary incontinence management (1) Myopathy (2) COVID-19 (3) Altered mental status DEE KAYE DO Jun 19, 2023 06:17
[2023-06-19 06:29] LABS: INR 2.5 (0.8-1.4); PROTHROMBIN TIME PATIENT 27.1 SEC (12.2-14.7)
[2023-06-19 06:36] LABS: ALBUMIN 3.5 GM/DL (3.2-4.5); BILIRUBIN,TOTAL 0.8 MG/DL (0.1-1.0); CREATININE SERUM 1.17 MG/DL (0.60-1.30); POTASSIUM 4.4 MMOL/L (3.6-5.0); TOTAL PROTEIN 5.9 GM/DL (6.4-8.2)
[2023-06-19 08:00] VITALS: BP 123/72
[2023-06-19] MEDS: ALLOPURINOL 100 MG TABLET PO SCH ×2 (08:11→21:15)
[2023-06-19] MEDS: MEXILETINE 150 MG CAPSULE PO SCH ×2 (08:11→21:15)
[2023-06-19] MEDS: SACUBITRIL/VALSARTAN 24/26 MG TABLET PO SCH ×2 (08:12→21:15)
[2023-06-19] MEDS: carvediloL 3.125 MG TABLET PO SCH ×2 (08:12→18:54)
[2023-06-19] MEDS: DOCUSATE SODIUM 100 MG CAPSULE PO SCH ×2 (08:13→21:15)
[2023-06-19] MEDS: SENNA W/DOCUSATE TABLET PO SCH ×2 (08:13→21:15)
[2023-06-19] MEDS: FUROSEMIDE 20 MG TABLET PO SCH (08:27)
--- NOTE | 2023-06-19 09:04 | Physical Therapy Daily Note ---
PT Daily Note-Current Subjective Pt laying Supine in bed upon arrival. Pt agrees to PT. Nurse giving morning meds at start of tx. Pain Location: No Pain Reported Section J - Health Conditions 1. Rarely or not at all 2. Occasionally 3. Frequently 4. Almost constantly 8. Unable to answer Pain Effect on Sleep: 1 Pain Interference with Therapy: 1 Pain Interference w/Day-to-Day: 1 Mental Status Patient Orientation: Person, Place, Time Transfers SCALE: Activities may be completed with or without assistive devices. 8-Bsomgoboln-ytnbodb completes the activity by him/herself with no assistance from a helper. 5-Set-up or Clean-up Assistance-helper sets up or cleans up; patient completes activity. [place] assists only prior to or following the activity. 4-Supervision or Touching Assistance-helper provides verbal cues and/or touching/steadying and/or contact guard assistance as patient completes activity. Assistance may be provided throughout the activity or intermittently. 3-Partial/Moderate Assistance-helper does LESS THAN HALF the effort. [place] lifts, holds or supports trunk or limbs, but provides less than half the effort. 2-Substantial/Maximal Assistance-helper does MORE THAN HALF the effort. [place] lifts or holds trunk or limbs and provides more than half the effort. 5-Vbarubfym-pyhgou does ALL the effort. Patient does none of the effort to complete the activity. Or, the assistance of 2 or more helpers is required for the patient to complete the activity. If activity was not attempted, code reason: 7-Patient Refused. 9-Not Applicable-not attempted and the patient did not perform the activity before the current illness, exacerbation or injury. 10-Not Attempted due to Environmental Limitations-(lack of equipment, weather restraints, etc.). 88-Not Attempted due to Medical Conditions or Safety Concerns. Lying to Sitting/Side of Bed(Q: 4 Sit to Stand (QC): 4 Chair/Tfd-vi-Tlhps Xfer(QC): 4 Toilet Transfer (QC): 4 Weight Bearing Right Lower Extremity: Right Full Weight Bearing Left Lower Extremity: Left Full Weight Bearing Gait Training Does the Patient Walk?: Yes Distance: 15' x2 Walk 10 feet (QC): 4 Gait Persons Needed: 1 Gait Assistive Device: FWW VC for safety, tries to leave FWW behind. Wheelchair Training Does the Pt Use a Wheelchair?: No Exercises Seated Therapy Exercises: Ankle pumps, Long arc quads, Hip flexion, Hip abd/add, Glut set Seated Reps: 15 Treatments Pt TF from Supine to EOB and takes morning meds then stands to amb to BR. Pt is incon. in brief but also misses toilet upon urinating. EMPLOYMENT LAW ATTORNEY assists w/clean-up and getting pt clean clothes as needed. Pt amb back to recliner to rest and completes Seated Ex before end of tx. All needs met, call light. Assessment Current Status: Fair Progress Pt needs VC for safety as pt tries to leave FWW behind. Cuing is frequent as pt has dementia and often forgets safety tips. 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 ) Sit to Lying (QC): 6 (Pt will be Mod I with bed mobility and transfers. ) Lying-Sitting on Side/Bed(QC): 6 (Pt will be Mod I with bed mobility and transfers. ) Sit to Stand (QC): 6 (Pt will be Mod I with bed mobility and transfers. ) Chair/Vwl-br-Newvt Xfer(QC): 6 (Pt will be Mod I with bed mobility and transfers. ) Toilet Transfer (QC): 6 (Pt will be Mod I with bed mobility and transfers. ) Car Transfer (QC): 6 (Pt will be Mod I with bed mobility and transfers. ) Does the Patient Walk: Yes Walk 10 feet (QC): 4 (Pt will be SBA for walking and stairs to safely return home with spouse. ) Walk 50ft with 2 Turns (QC): 4 (Pt will be SBA for walking and stairs to safely return home with spouse. ) Walk 150 ft (QC): 4 (Pt will be SBA for walking and stairs to safely return home with spouse. ) Walking 10ft on Uneven Surface: 4 (Pt will be SBA for walking and stairs to safely return home with spouse. ) 1 Step (curb) (QC): 4 (Pt will be SBA for walking and stairs to safely return home with spouse. ) 4 Steps (QC): 4 (Pt will be SBA for walking and stairs to safely return home with spouse. ) 12 Steps (QC): 4 (Pt will be SBA for walking and stairs to safely return home with spouse. ) Picking up an Object (QC): 4 (Pt will be SBA for walking and stairs to safely return home with spouse. ) Does the Pt use WC or Scooter?: No Wheel 50 feet with 2 turns (QC: 9 Type: N/A Wheel 150 feet: 9 Type: N/A PT Plan Problem List Problem List: Safety Treatment/Plan Treatment Plan: Continue Plan of Care Treatment Plan: Bed Mobility, Concurrent Therapy, Education, Functional Activity Jemal, Functional Strength, Group Therapy, Gait, Safety, Therapeutic Exercise, Transfers Treatment Duration: Jul 02, 2023 Frequency: At least 5 of 7 days/Wk (IRF) Estimated Hrs Per Day: 1.5 hours per day Patient and/or Family Agrees t: Yes Safety Risks/Education Patient Education: Safety Issues Teaching Recipient: Patient Teaching Methods: Discussion Response to Teaching: Reinforcement Needed Time Time In: 0800 Time Out: 0900 DATE: Jun 19, 2023 Total Billed Treatment Time: 60 Total Billed Treatment 1, FA x2 (30m), GT (15m) & EX (15m) JUNE VILLALTA EMPLOYMENT LAW ATTORNEY Jun 19, 2023 09:04
--- NOTE | 2023-06-19 13:47 | Physical Therapy Daily Note ---
PT Daily Note-Current Subjective Pt sitting in recliner upon arrival. Pt agrees to PT/OT co-treat for higher level balance activity to challenge sequencing of tasks and balance. Co-treat with OT secondary to decreased endurance, activity tolerance, and the need of a second person for safety to increase (I) with functional tasks and to decrease the burden of care. PT focusing on functional mobility and standing balance while OT focusing on standing tolerance and cognition. Pain Location: No Pain Reported Section J - Health Conditions 1. Rarely or not at all 2. Occasionally 3. Frequently 4. Almost constantly 8. Unable to answer Pain Effect on Sleep: 1 Pain Interference with Therapy: 1 Pain Interference w/Day-to-Day: 1 Mental Status Patient Orientation: Person, Place, Time Transfers SCALE: Activities may be completed with or without assistive devices. 7-Ehtmpxjkqu-pqsxbsi completes the activity by him/herself with no assistance from a helper. 5-Set-up or Clean-up Assistance-helper sets up or cleans up; patient completes activity. [place] assists only prior to or following the activity. 4-Supervision or Touching Assistance-helper provides verbal cues and/or touching/steadying and/or contact guard assistance as patient completes activity. Assistance may be provided throughout the activity or intermittently. 3-Partial/Moderate Assistance-helper does LESS THAN HALF the effort. [place] lifts, holds or supports trunk or limbs, but provides less than half the effort. 2-Substantial/Maximal Assistance-helper does MORE THAN HALF the effort. [place] lifts or holds trunk or limbs and provides more than half the effort. 1-Xsjoavknr-xgjvkd does ALL the effort. Patient does none of the effort to complete the activity. Or, the assistance of 2 or more helpers is required for the patient to complete the activity. If activity was not attempted, code reason: 7-Patient Refused. 9-Not Applicable-not attempted and the patient did not perform the activity before the current illness, exacerbation or injury. 10-Not Attempted due to Environmental Limitations-(lack of equipment, weather restraints, etc.). 88-Not Attempted due to Medical Conditions or Safety Concerns. Sit to Stand (QC): 4 Weight Bearing Right Lower Extremity: Right Full Weight Bearing Left Lower Extremity: Left Full Weight Bearing Treatments Pt performed standing activity while utilizing a simple word search puzzle to increase standing tolerance, activity tolerance, visual scanning, sequencing, executive functioning skills, endurance, and static standing balance to increase (I) with ADLs and IADLs. Pt performed sit<>stand with CGA x 1 with RW available, if needed, for balance/steadiness. Pt stood for ~30 minutes with CGA x 1 with no LOB noted. While completing word search puzzle, pt required max verbal and visual cues to complete 15/15 words. Pt unable to find any of the words (I)'ly. Increased amount of time needed to complete word search puzzle secondary to decreased executive functioning skills. Pt reported no pain while performing task. Seated rest break needed at the end of activity. PT departs at this time while OT continues tx. Assessment Current Status: Fair Progress Dementia makes sequencing difficult. VC needed to find words during tx. PT Prison Goals Physical Therapy Aid Goals PT Prison Goals Time Frame: Jul 02, 2023 Roll Left & Right (QC): 6 (Pt will be Mod I with bed mobility and transfers. ) Sit to Lying (QC): 6 (Pt will be Mod I with bed mobility and transfers. ) Lying-Sitting on Side/Bed(QC): 6 (Pt will be Mod I with bed mobility and transfers. ) Sit to Stand (QC): 6 (Pt will be Mod I with bed mobility and transfers. ) Chair/Dvd-sh-Ssrnq Xfer(QC): 6 (Pt will be Mod I with bed mobility and transfers. ) Toilet Transfer (QC): 6 (Pt will be Mod I with bed mobility and transfers. ) Car Transfer (QC): 6 (Pt will be Mod I with bed mobility and transfers. ) Does the Patient Walk: Yes Walk 10 feet (QC): 4 (Pt will be SBA for walking and stairs to safely return home with spouse. ) Walk 50ft with 2 Turns (QC): 4 (Pt will be SBA for walking and stairs to safely return home with spouse. ) Walk 150 ft (QC): 4 (Pt will be SBA for walking and stairs to safely return home with spouse. ) Walking 10ft on Uneven Surface: 4 (Pt will be SBA for walking and stairs to safely return home with spouse. ) 1 Step (curb) (QC): 4 (Pt will be SBA for walking and stairs to safely return home with spouse. ) 4 Steps (QC): 4 (Pt will be SBA for walking and stairs to safely return home with spouse. ) 12 Steps (QC): 4 (Pt will be SBA for walking and stairs to safely return home with spouse. ) Picking up an Object (QC): 4 (Pt will be SBA for walking and stairs to safely return home with spouse. ) Does the Pt use WC or Scooter?: No Wheel 50 feet with 2 turns (QC: 9 Type: N/A Wheel 150 feet: 9 Type: N/A PT Plan Problem List Problem List: Safety Treatment/Plan Treatment Plan: Continue Plan of Care Treatment Plan: Bed Mobility, Concurrent Therapy, Education, Functional Activity Jemal, Functional Strength, Group Therapy, Gait, Safety, Therapeutic Exercise, Transfers Treatment Duration: Jul 02, 2023 Frequency: At least 5 of 7 days/Wk (IRF) Estimated Hrs Per Day: 1.5 hours per day Patient and/or Family Agrees t: Yes Safety Risks/Education Patient Education: Safety Issues Teaching Recipient: Patient Teaching Methods: Discussion Response to Teaching: Verbalize Understanding Time Time In: 1300 Time Out: 1330 DATE: Jun 19, 2023 Total Billed Treatment Time: 30 Total Billed Treatment Co-treat w/OT for 30m ([id number]) 1, FA x2 (30m) JUNE VILLALTA PTA Jun 19, 2023 13:47
--- NOTE | 2023-06-19 13:54 | Occupational Ther Daily Note ---
OT Current Status-Daily Note Subjective Pt seated in bedside chair upon arrival with present at bedside. Pt and consented to OT session this A.M. Pain Numeric Pain Scale: 0-No Pain Location: No Pain Reported Comment: Pt is on airborne precautions secondary to COVID+ Mental Status/Objective Patient Orientation: Person, Place, Time Attachments: IV ADL-Treatment Therapy Code Descriptions/Definitions Functional [place] Measure: 0=Not Assessed/NA 4=Minimal Assistance 1=Total Assistance 5=Supervision or Setup 2=Maximal Assistance 6=Modified [place] 3=Moderate Assistance 7=Complete IndependenceSCALE: Activities may be completed with or without assistive devices. 5-Dydzbngnle-psdgcuy completes the activity by him/herself with no assistance from a helper. 5-Set-up or Clean-up Assistance-helper sets up or cleans up; patient completes activity. [place] assists only prior to or following the activity. 4-Supervision or Touching Assistance-helper provides verbal cues and/or touching/steadying and/or contact guard assistance as patient completes activity. Assistance may be provided throughout the activity or intermittently. 3-Partial/Moderate Assistance-helper does LESS THAN HALF the effort. [place] li fts, holds or supports trunk or limbs, but provides less than half the effort. 2-Substantial/Maximal Assistance-helper does MORE THAN HALF the effort. [place] lifts or holds trunk or limbs and provides more than half the effort. 9-Klgbnneks-gkzufa does ALL the effort. Patient does none of the effort to complete the activity. Or, the assistance of 2 or more helpers is required for the patient to complete the activity. If activity was not attempted, code reason: 7-Patient Refused. 9-Not Applicable-not attempted and the patient did not perform the activity before the current illness, exacerbation or injury. 10-Not Attempted due to Environmental Limitations-(lack of equipment, weather restraints, etc.). 88-Not Attempted due to Medical Conditions or Safety Concerns. Bathing Location: L Arm, R Arm, L Upper Leg, R Upper Leg, L Lower Leg (including foot), R Lower Leg (including foot), Chest, Abdomen, Buttocks, Perineal Area Shower/Bathe Self (QC): 3 (Partial/mod A for bathing while seated on built in shower bench utilizing GB's and hand held shower head. Pt required mod verbal cues for sequencing/initiation of task. Pt able to clean gely are/buttocks while standing with min A for steadiness. ) Upper Body Dressing (QC): 4 (SBA for donning/doffing shirt seated in WC; pt requires verbal cues to initiate task.) Lower Body Dressing (QC): 4 (SBA for donning/doffing pants; pt able to thread BLE's into pants legs while seated in WC; pt performed sit<>stand from WC with SBA to pull pants over hips; pt required SBA seacondary to steadiness/safety and requires mod verbal cues for sequencing.) On/Off Footwear: 3 (Min A to don/doff socks seated in WC performing figure 4 position.) Other Treatment Pt ambulated from bedside recliner<>built in shower bench with CGA x 1 with ve rbal cues to manage RW for safety. ADLs performed during session (see scores above) Education OT Patient Education: Energy conservation, Modified ADL techniques, Progress toward Goal/Update tx plan, Purpose of tx/functional activities, Rehab process, Safety issues, Transfer techniques Teaching Recipient: Patient, Family Teaching Methods: Demonstration, Discussion Response to Teaching: Reinforcement Needed OT School Bus Dispatcher Goals Skilled Nursing Goals Acute change in mental status: 0 Inattention: 0 Disorganized thinkin Altered level of consciousness: 0 Eating (QC): 6 Oral Hygiene (QC): 6 Toileting Hygiene (QC): 4 Shower/Bathe Self (QC): 4 Upper Body Dressing (QC): 5 Lower Body Dressing (QC): 4 On/Off Footwear (QC): 5 1=Demonstrate adherence to instructed precautions during ADL tasks. 2=Patient will verbalize/demonstrate understanding of assistive devices/modifications for ADL. 3=Patient will improve strength/tolerance for activity to enable patient to perform ADL's. OT Education/Plan Problem List/Assessment Assessment: Decreased Activ Tolerance, Decreased Safety Aware, Impaired Cognition, Impaired I ADL's, Impaired Self-Care Skills Discharge Recommendations Plan/Recommendations: Continue POC Comment Will continue to assess pending pt's progression. Barriers to Progress Cognition, activity tolerance, safety awareness, endurance Treatment Plan/Plan of Care Patient would benefit from OT for education, treatment and training to promote independence in ADL's, mobility, safety and/or upper extremity function for ADL's. Plan of Care: ADL Retraining, Caregiver Training, Cognitive Retraining, Functional Mobility, Group Exercise/Act as Ind, UE Funct Exercise/Act Treatment Duration: Jun 25, 2023 Frequency: At least 5 of 7 days/Wk (IRF) Estimated Hrs Per Day: 1.5 hours per day Agreement: Yes Rehab Potential: Good Ending session, pt remained seated in bedside chair with needs/call light in reach and chair alarm set. at bedside exiting room. Time Start Time: 09:30 Stop Time: 10:15 DATE: Jun 19, 2023 Total Time Billed (hr/min): 45 Billed Treatment Time 45 minutes ADL 3 CHAS VILLANUEVA, OT Jun 19, 2023 13:54
--- NOTE | 2023-06-19 14:09 | Occupational Ther Daily Note ---
OT Current Status-Daily Note Subjective Pt seated in bedside chair upon arrival. Pt consented to OT session this P.M. Co-treat with PT secondary to decreased endurance, activity tolerance, and the need of a second person for safety to increase (I) with functional tasks and to decrease the burden of care. Pt focusing on functional mobility and standing balance while OT focusing on standing tolerance and cognition. Pain Numeric Pain Scale: 0-No Pain Location: No Pain Reported Mental Status/Objective Patient Orientation: Place, Time, Situation Attachments: IV, Other-See Comments Pt on airborne precautions secondary to COVID+ ADL-Treatment Therapy Code Descriptions/Definitions Functional [place] Measure: 0=Not Assessed/NA 4=Minimal Assistance 1=Total Assistance 5=Supervision or Setup 2=Maximal Assistance 6=Modified [place] 3=Moderate Assistance 7=Complete IndependenceSCALE: Activities may be completed with or without assistive devices. 8-Ipmecpsiic-ohdynlk completes the activity by him/herself with no assistance from a helper. 5-Set-up or Clean-up Assistance-helper sets up or cleans up; patient completes activity. [place] assists only prior to or following the activity. 4-Supervision or Touching Assistance-helper provides verbal cues and/or touching/steadying and/or contact guard assistance as patient completes activity. Assistance may be provided throughout the activity or intermittently. 3-Partial/Moderate Assistance-helper does LESS THAN HALF the effort. [place] lifts, holds or supports trunk or limbs, but provides less than half the effort. 2-Substantial/Maximal Assistance-helper does MORE THAN HALF the effort. [place] lifts or holds trunk or limbs and provides more than half the effort. 1-Awvqhpwcu-uyzqqf does ALL the effort. Patient does none of the effort to complete the activity. Or, the assistance of 2 or more helpers is required for the patient to complete the activity. If activity was not attempted, code reason: 7-Patient Refused. 9-Not Applicable-not attempted and the patient did not perform the activity before the current illness, exacerbation or injury. 10-Not Attempted due to Environmental Limitations-(lack of equipment, weather restraints, etc.). 88-Not Attempted due to Medical Conditions or Safety Concerns. Other Treatment Pt performed standing activity while utilizing a simple word search puzzle to increase standing tolerance, activity tolerance, visual scanning, sequencing, executive functioning skills, endurance, and static standing balance to increase (I) with ADLs and IADLs. Pt performed sit<>stand with CGA x 1 with RW available, if needed, for balance/steadiness. Pt stood for ~30 minutes with CGA x 1 with no LOB noted. While completing word search puzzle, pt required max verbal and visual cues to complete 15/15 words. Pt unable to find any of the words (I)'ly. Increased amount of time needed to complete word search puzzle secondary to decreased executive functioning skills. Pt reported no pain while performing task. Seated rest break needed at the end of activity. Pt performed BUE strengthening activity with red theraband while seated in bedside chair performing 15 reps x 2 sets with pt performing tricep ext and horizontal abduction to increase BUE strength, endurance, and activity t olerance. Exercises performed to improve ADL/IADL performance. Pt required intermittent rest breaks in between exercises secondary to fatigue. No pain reported while performing exercises. Education OT Patient Education: Energy conservation, Exercise program, Home exercise program, Progress toward Goal/Update tx plan, Purpose of tx/functional activi ties, Rehab process, Safety issues, Transfer techniques Teaching Recipient: Patient Response to Teaching: Reinforcement Needed OT Fpc Goals Fpc Goals Acute change in mental status: 0 Inattention: 0 Disorganized thinkin Altered level of consciousness: 0 Eating (QC): 6 Oral Hygiene (QC): 6 Toileting Hygiene (QC): 4 Shower/Bathe Self (QC): 4 Upper Body Dressing (QC): 5 Lower Body Dressing (QC): 4 On/Off Footwear (QC): 5 1=Demonstrate adherence to instructed precautions during ADL tasks. 2=Patient will verbalize/demonstrate understanding of assistive devices/modifications for ADL. 3=Patient will improve strength/tolerance for activity to enable patient to perform ADL's. OT Education/Plan Problem List/Assessment Assessment: Decreased Activ Tolerance, Decreased Safety Aware, Decreased UE Strength, Impaired Cognition, Impaired Funct Balance, Impaired I ADL's Discharge Recommendations Plan Home with /family Plan/Recommendations: Continue POC Comment Will continue to assess pending pt's progression Barriers to Progress Decreased cognition, endurance, activity tolerance, safety awareness Patient/Family Goals Return to PLOF Treatment Plan/Plan of Care Treatment,Training & Education: Yes Patient would benefit from OT for education, treatment and training to promote independence in ADL's, mobility, safety and/or upper extremity function for ADL's. Plan of Care: ADL Retraining, Caregiver Training, Cognitive Retraining, Functional Mobility, Group Exercise/Act as Ind, UE Funct Exercise/Act Treatment Duration: Jun 25, 2023 Frequency: At least 5 of 7 days/Wk (IRF) Estimated Hrs Per Day: 1.5 hours per day Agreement: Yes Rehab Potential: Good Ending session, pt remained seated in bedside chair with needs/call light in reach and chair alarm on. Time Start Time: 13:00 Stop Time: 13:45 DATE: Jun 19, 2023 Total Time Billed (hr/min): 45 Billed Treatment Time 45 minutes FA 3 CHAS VILLANUEVA OT Jun 19, 2023 14:09
[2023-06-19] MEDS: warFARin 5 MG (COUMADIN) TAB PO SCH (17:02)
[2023-06-19 17:03] VITALS: BP 99/62
[2023-06-19 20:55] VITALS: BP 99/66
[2023-06-19] MEDS: CITALOPRAM 20 MG TABLET PO SCH (21:15)
[2023-06-19] MEDS: DONEPEZIL 10 MG TABLET PO SCH (21:15)
--- NOTE | 2023-06-20 05:27 | PM&R Progress Note ---
Subjective HPI/CC On Admission Date Seen by Provider: Jun 20, 2023 Time Seen by Provider: 12:00 Subjective/Events-last exam 06/20/2023: Patient doing well Getting more alert today Reviewed meds and labs No falls at bedside 06/19/2023: Improved overall at bedside Appears more improved Very weak Incontinence is a new issue and likely related to COVID Review of Systems General: Fatigue, Malaise Objective Exam Vital Signs Vital Signs Date Time Temp Pulse Resp B/P (MAP) Pulse Ox O2 Delivery O2 Flow Rate FiO2 06/20/23 19:39 36.2 71 16 102/68 (79) 95 Room Air Capillary Refill : General Appearance: No Apparent Distress, WD/WN, Chronically ill HEENT: PERRL/EOMI, Normal ENT Inspection, Pharynx Normal Neck: Full Range of Motion, Normal Inspection, Non Tender, Supple, Carotid Bruit Respiratory: Chest Non Tender, Lungs Clear, No Accessory Muscle Use, No Respiratory Distress, Decreased Breath Sounds Cardiovascular: Regular Rate, Rhythm, No Edema, No Gallop, No JVD, No Murmur, Normal Peripheral Pulses, Irregularly Irregular Gastrointestinal: Normal Bowel Sounds, No Organomegaly, No Pulsatile Mass, Non Tender, Soft Back: Normal Inspection, No CVA Tenderness, No Vertebral Tenderness Extremity: Normal Capillary Refill, Normal Inspection, Normal Range of Motion, Non Tender, No Calf Tenderness, No Pedal Edema Neurologic/Psychiatric: Alert, Oriented x3, No Motor/Sensory Deficits, handbag stitcher II- XII Norm as Tested, Abnormal Gait, Depressed Affect, Motor Weakness (Severe generalized weakness) Skin: Normal Color, Warm/Dry Lymphatic: No Adenopathy Results/Procedures Lab Patient resulted labs reviewed. FIM Transfers Therapy Code Descriptions/Definitions Functional [place] Measure: 0=Not Assessed/NA 4=Minimal Assistance 1=Total Assistance 5=Supervision or Setup 2=Maximal Assistance 6=Modified [place] 3=Moderate Assistance 7=Complete IndependenceSCALE: Activities may be completed with or without assistive devices. 0-Gfqnjkwbsg-drgdwal completes the activity by him/herself with no assistance from a helper. 5-Set-up or Clean-up Assistance-helper sets up or cleans up; patient completes activity. [place] assists only prior to or following the activity. 4-Supervision or Touching Assistance-helper provides verbal cues and/or touching/steadying and/or contact guard assistance as patient completes activity. Assistance may be provided throughout the activity or intermittently. 3-Partial/Moderate Assistance-helper does LESS THAN HALF the effort. [place] lifts, holds or supports trunk or limbs, but provides less than half the effort. 2-Substantial/Maximal Assistance-helper does MORE THAN HALF the effort. [place] lifts or holds trunk or limbs and provides more than half the effort. 6-Bkiqajdgv-jdltbt does ALL the effort. Patient does none of the effort to complete the activity. Or, the assistance of 2 or more helpers is required for the patient to complete the activity. If activity was not attempted, code reason: 7-Patient Refused. 9-Not Applicable-not attempted and the patient did not perform the activity before the current illness, exacerbation or injury. 10-Not Attempted due to Environmental Limitations-(lack of equipment, weather restraints, etc.). 88-Not Attempted due to Medical Conditions or Safety Concerns. Roll Left to Right (QC): 4 (SBA ) Sit to Lying (QC): 4 (SBA ) Sit to Stand (QC): 4 Chair/Wgl-hr-Gwmyp Xfer(QC): 4 Car Transfer (QC): 88 (Pt isolated to room secondary to covid ) Gait Training Does the Patient Walk?: Yes Distance: 15' x2 Walk 10 feet (QC): 4 Walk 50 ft with 2 Turns(QC): 88 (Proximal weakness ) Walk 150 ft (QC): 88 (Proximal weakness ) Walking 10ft/uneven surface-QC: 88 (Proximal weakness; balance/safety ) Gait Persons Needed: 1 Gait Assistive Device: FWW Wheelchair Training Does the Pt Use a Wheelchair?: No Wheel 50 ft with 2 turns (QC): 9 Wheel 150 ft (QC): 9 Type of Wheelchair: N/A Stair Training #of Steps: 1 1 Step (curb) (QC): 1 (Min/Mod A x 2 for balance/safety ) 4 Steps (QC): 88 (Balance and safety ) 12 Steps (QC): 88 (Balance and safety ) Balance Picking up an Object (QC): 3 (Min/Mod A for balance/safety ) ADL-Treatment Eating (QC): 5 (set-up A to open packages and containers) Oral Hygiene (QC): 4 (SBA to perform oral care seated in WC at sink; pt able to open tooth paste bottle, but required verbal cues for sequencing/initiation of task. ) Bathing Location: L Arm, R Arm, L Upper Leg, R Upper Leg, L Lower Leg (including foot), R Lower Leg (including foot), Chest, Abdomen, Buttocks, Perineal Area Shower/Bathe Self (QC): 3 (Partial/mod A for bathing while seated on built in shower bench utilizing GB's and hand held shower head. Pt required mod verbal cues for sequencing/initiation of task. Pt able to clean gely are/buttocks while standing with min A for steadiness. ) Upper Body Dressing (QC): 4 (SBA for donning/doffing shirt seated in WC; pt requires verbal cues to initiate task.) Lower Body Dressing (QC): 4 (SBA for donning/doffing pants; pt able to thread BLE's into pants legs while seated in WC; pt performed sit<>stand from WC with SBA to pull pants over hips; pt required SBA seacondary to steadiness/safety and requires mod verbal cues for sequencing.) On/Off Footwear (QC): 3 (Min A to don/doff socks seated in WC performing figure 4 position.) Toileting Hygiene (QC): 3 (Partial/mod A for thoroughness with clean gely area and buttocks; pt able to manage clothing. ) Assessment/Plan Assessment and Plan Assess & Plan/Chief Complaint Assessment: Myopathy COVID-19 Altered mental status Dementia Pacemaker Valve replacement Warfarin for anticoagulation Chronic kidney disease Gout Dehydration on admit Cardiomyopathy on Entresto Plan: PT and OT Home meds Monitor closely 06/19/2023: Monitor O2 Urinary incontinence management 06/20/2023: Supportive care Incontinence care (1) Myopathy (2) COVID-19 (3) Altered mental status DEE KAYE DO Jun 20, 2023 05:27
[2023-06-20 07:30] VITALS: BP 114/66
[2023-06-20] MEDS: SACUBITRIL/VALSARTAN 24/26 MG TABLET PO SCH ×2 (08:23→21:45)
[2023-06-20] MEDS: ALLOPURINOL 100 MG TABLET PO SCH ×2 (08:23→21:44)
[2023-06-20] MEDS: carvediloL 3.125 MG TABLET PO SCH ×2 (08:23→18:48)
[2023-06-20] MEDS: SPIRONOLACTONE 25 MG TABLET PO SCH (08:23)
[2023-06-20] MEDS: MEXILETINE 150 MG CAPSULE PO SCH ×2 (08:24→21:44)
[2023-06-20] MEDS: SENNA W/DOCUSATE TABLET PO SCH ×2 (08:28→21:45)
[2023-06-20] MEDS: DOCUSATE SODIUM 100 MG CAPSULE PO SCH ×2 (08:28→21:45)
--- NOTE | 2023-06-20 10:59 | Physical Therapy Daily Note ---
PT Daily Note-Current Subjective Pt found seated in recliner upon entry. Agreed to PT. Reports that he is not having any pain pre-treatment. States that he slept well last night. Pain Section J - Health Conditions 1. Rarely or not at all 2. Occasionally 3. Frequently 4. Almost constantly 8. Unable to answer Pain Effect on Sleep: 1 Pain Interference with Therapy: 1 Pain Interference w/Day-to-Day: 1 Mental Status Patient Orientation: Person Transfers SCALE: Activities may be completed with or without assistive devices. 5-Aovekhbevr-sxgzdpq completes the activity by him/herself with no assistance from a helper. 5-Set-up or Clean-up Assistance-helper sets up or cleans up; patient completes activity. [place] assists only prior to or following the activity. 4-Supervision or Touching Assistance-helper provides verbal cues and/or touching/steadying and/or contact guard assistance as patient completes activity. Assistance may be provided throughout the activity or intermittently. 3-Partial/Moderate Assistance-helper does LESS THAN HALF the effort. [place] lifts, holds or supports trunk or limbs, but provides less than half the effort. 2-Substantial/Maximal Assistance-helper does MORE THAN HALF the effort. [place] lifts or holds trunk or limbs and provides more than half the effort. 8-Tnqimufsg-lcnqzr does ALL the effort. Patient does none of the effort to complete the activity. Or, the assistance of 2 or more helpers is required for the patient to complete the activity. If activity was not attempted, code reason: 7-Patient Refused. 9-Not Applicable-not attempted and the patient did not perform the activity before the current illness, exacerbation or injury. 10-Not Attempted due to Environmental Limitations-(lack of equipment, weather restraints, etc.). 88-Not Attempted due to Medical Conditions or Safety Concerns. Sit to Stand (QC): 4 Weight Bearing Right Lower Extremity: Right Full Weight Bearing Left Lower Extremity: Left Full Weight Bearing Gait Training Does the Patient Walk?: Yes Distance: 50, 15 Walk 10 feet (QC): 4 Walk 50 ft with 2 Turns(QC): 4 Gait Persons Needed: 1 Gait Assistive Device: FWW Treatments Seated Therapeutic Exercises (B) x 10 ea: - LAQs - Marching - Heel/toe raises - Hip add - Hip abd Assessment Current Status: Fair Progress Pt ambulates up to 50 feet /c use of FWW. CGA required for safety due to balance deficits. Pt displays short step lengths /c poor heel/toe pattern which improves /c verbal cues for proper gait pattern. Also required verbal cues for turning and navigating FWW. Pt completes 10 sit to stand transfers from recliner /c SBA for safety due to strength deficits. No verbal cues required to perform. Pt displays decent muscle strength /c poor endurance while performing therapeutic exercises from recliner. Pt left in recliner post-treatment /c call light in place, chair alarm active, telesitter in place, all needs met, and family member present. Continue to progress pt as tolerated per POC. PT Prison Goals Prison Goals PT Prison Goals Time Frame: Jul 02, 2023 Roll Left & Right (QC): 6 (Pt will be Mod I with bed mobility and transfers. ) Sit to Lying (QC): 6 (Pt will be Mod I with bed mobility and transfers. ) Lying-Sitting on Side/Bed(QC): 6 (Pt will be Mod I with bed mobility and transfers. ) Sit to Stand (QC): 6 (Pt will be Mod I with bed mobility and transfers. ) Chair/Wih-dp-Yqlrb Xfer(QC): 6 (Pt will be Mod I with bed mobility and transfers. ) Toilet Transfer (QC): 6 (Pt will be Mod I with bed mobility and transfers. ) Car Transfer (QC): 6 (Pt will be Mod I with bed mobility and transfers. ) Does the Patient Walk: Yes Walk 10 feet (QC): 4 (Pt will be SBA for walking and stairs to safely return home with spouse. ) Walk 50ft with 2 Turns (QC): 4 (Pt will be SBA for walking and stairs to safely return home with spouse. ) Walk 150 ft (QC): 4 (Pt will be SBA for walking and stairs to safely return home with spouse. ) Walking 10ft on Uneven Surface: 4 (Pt will be SBA for walking and stairs to safely return home with spouse. ) 1 Step (curb) (QC): 4 (Pt will be SBA for walking and stairs to safely return home with spouse. ) 4 Steps (QC): 4 (Pt will be SBA for walking and stairs to safely return home with spouse. ) 12 Steps (QC): 4 (Pt will be SBA for walking and stairs to safely return home with spouse. ) Picking up an Object (QC): 4 (Pt will be SBA for walking and stairs to safely return home with spouse. ) Does the Pt use WC or Scooter?: No Wheel 50 feet with 2 turns (QC: 9 Type: N/A Wheel 150 feet: 9 Type: N/A PT Plan Treatment/Plan Treatment Plan: Continue Plan of Care Treatment Plan: Bed Mobility, Concurrent Therapy, Education, Functional Activity Jemal, Functional Strength, Group Therapy, Gait, Safety, Therapeutic Exercise, Transfers Treatment Duration: Jul 02, 2023 Frequency: At least 5 of 7 days/Wk (IRF) Estimated Hrs Per Day: 1.5 hours per day Patient and/or Family Agrees t: Yes Time Time In: 1000 Time Out: 1100 DATE: Jun 20, 2023 Total Billed Treatment Time: 60 Total Billed Treatment 1 visit GT x 2 EX x 1 FA x 1 ROCKY SCOTT EXPERT MEDICAL WRITER Jun 20, 2023 10:59
--- NOTE | 2023-06-20 11:50 | Occupational Ther Daily Note ---
OT Current Status-Daily Note Subjective Pt seated in bedside chair upon arrival with no c/o pain at this time. Pt consented to OT session this A.M. Pain Numeric Pain Scale: 0-No Pain Location: No Pain Reported Mental Status/Objective Patient Orientation: Person, Place, Time, Situation HERMAN Andersen stated pt pull out IV last night. Pt also now has a tele-sitter in room, as well as continuing the use of a chair alarm for safety. ADL-Treatment Therapy Code Descriptions/Definitions Functional [place] Measure: 0=Not Assessed/NA 4=Minimal Assistance 1=Total Assistance 5=Supervision or Setup 2=Maximal Assistance 6=Modified [place] 3=Moderate Assistance 7=Complete IndependenceSCALE: Activities may be completed with or without assistive devices. 2-Cubzwukjuh-qapcnit completes the activity by him/herself with no assistance from a helper. 5-Set-up or Clean-up Assistance-helper sets up or cleans up; patient completes activity. [place] assists only prior to or following the activity. 4-Supervision or Touching Assistance-helper provides verbal cues and/or touching/steadying and/or contact guard assistance as patient completes activity. Assistance may be provided throughout the activity or intermittently. 3-Partial/Moderate Assistance-helper does LESS THAN HALF the effort. [place] lifts, holds or supports trunk or limbs, but provides less than half the effort. 2-Substantial/Maximal Assistance-helper does MORE THAN HALF the effort. [place] lifts or holds trunk or limbs and provides more than half the effort. 0-Ddexheova-yljyww does ALL the effort. Patient does none of the effort to complete the activity. Or, the assistance of 2 or more helpers is required for the patient to complete the activity. If activity was not attempted, code reason: 7-Patient Refused. 9-Not Applicable-not attempted and the patient did not perform the activity before the current illness, exacerbation or injury. 10-Not Attempted due to Environmental Limitations-(lack of equipment, weather restraints, etc.). 88-Not Attempted due to Medical Conditions or Safety Concerns. Oral Hygiene (QC): 4 (SBA for oral care seated at sink. Pt continues to require verbal cues for sequencing. ) Bathing Location: L Arm, R Arm, L Upper Leg, R Upper Leg, L Lower Leg (i ncluding foot), R Lower Leg (including foot), Chest, Abdomen, Buttocks, Perineal Area Shower/Bathe Self (QC): 4 (SBA for bathing seated on built in shower bench in walk in shower with pt utilizing GB's and hand held shower head. Pt requires verbal cues for thoroughness to wash all areas as well as to dry off all areas. ) Upper Body Dressing (QC): 4 (SBA for donning/doffing shirt seated in WC. Pt requires cues to initiate task.) Lower Body Dressing (QC): 3 (Partial/mod A for donning/doffing brief and pants. Pt attempts to perform figure 4 position seated in WC with pt unable to thread RLE into pants leg. Therapist educated pt on threading the RLE first, since it is his weaker leg, and then thread the LLE. Pt continues to thread LLE first, which requires him to need (A) with donning/doffing pants. Pt performs sit<>stand with CGA x 1 with RW available for safety where pt pulls pants over hips.) On/Off Footwear: 3 (Partial/mod A to don/doff socks seated in WC. Pt attempts to perform 4 to don/doff socks with pt unable to do. Pt able to bend over and doff socks, but unable to bend over to don them. stated at initial evaluation that this is pt's baseline function as she always assists with putting his socks on.) Other Treatment Pt performed shower transfer with Min A x 1 with ORTHODONTIC TECHNICIAN. Verbal cues needed for safety to use GB and to reach back for the built in bench for sitting down. Education OT Patient Education: Energy conservation, Modified ADL techniques, Progress toward Goal/Update tx plan, Purpose of tx/functional activities, Rehab process, Safety issues, Transfer techniques Teaching Recipient: Patient Teaching Methods: Demonstration, Discussion Response to Teaching: Reinforcement Needed During next therapy session, OT will attempt to use visual cue cards for sequencing tasks to see if this will better increase pt's (I) with ADLs. OT Detention Goals Explosive Ordnance Specialist Goals Acute change in mental status: 0 Inattention: 0 Disorganized thinkin Altered level of consciousness: 0 Eating (QC): 6 Oral Hygiene (QC): 6 Toileting Hygiene (QC): 4 Shower/Bathe Self (QC): 4 Upper Body Dressing (QC): 5 Lower Body Dressing (QC): 4 On/Off Footwear (QC): 5 1=Demonstrate adherence to instructed precautions during ADL tasks. 2=Patient will verbalize/demonstrate understanding of assistive devices/modifications for ADL. 3=Patient will improve strength/tolerance for activity to enable patient to perform ADL's. OT Education/Plan Problem List/Assessment Assessment: Decreased Activ Tolerance, Decreased Safety Aware, Decreased UE Strength, Impaired Cognition, Impaired Funct Balance, Impaired I ADL's, Impaired Self-Care Skills Discharge Recommendations Plan/Recommendations: Continue POC Comment Will continue to assess pending pt's progression. Barriers to Progress Cognition, activity tolerance, functional mobility, endurance Target Placement Home with family, 28/04 supervision for safety, Home Health OT Patient/Family Goals Return to PLOF Treatment Plan/Plan of Care Treatment,Training & Education: Yes Patient would benefit from OT for education, treatment and training to promote independence in ADL's, mobility, safety and/or upper extremity function for ADL's. Plan of Care: ADL Retraining, Caregiver Training, Cognitive Retraining, Functional Mobility, Group Exercise/Act as Ind, UE Funct Exercise/Act Treatment Duration: Jun 25, 2023 Frequency: At least 5 of 7 days/Wk (IRF) Estimated Hrs Per Day: 1.5 hours per day Agreement: Yes Rehab Potential: Good Ending session, pt remained seated in bedside chair with needs/call light in reach. Tele sitter and chair check on. Time Start Time: 09:15 Stop Time: 10:00 DATE: Jun 20, 2023 Total Time Billed (hr/min): 45 Billed Treatment Time 45 minutes ADL 3 CHAS VILLANUEVA OT Jun 20, 2023 11:50
--- NOTE | 2023-06-20 14:06 | Physical Therapy Daily Note ---
PT Daily Note-Current Subjective Pt found lying in bed /c family present upon entry. Agreed to PT/OT co- treatment. PT focus on transfers and gait training. OT focus on memory exercises and UE strength. No reports of pain throughout visit. Pain Section J - Health Conditions 1. Rarely or not at all 2. Occasionally 3. Frequently 4. Almost constantly 8. Unable to answer Pain Effect on Sleep: 1 Pain Interference with Therapy: 1 Pain Interference w/Day-to-Day: 1 Mental Status Patient Orientation: Person Transfers SCALE: Activities may be completed with or without assistive devices. 7-Sfjsubppwu-bckjevj completes the activity by him/herself with no assistance from a helper. 5-Set-up or Clean-up Assistance-helper sets up or cleans up; patient completes activity. [place] assists only prior to or following the activity. 4-Supervision or Touching Assistance-helper provides verbal cues and/or touching/steadying and/or contact guard assistance as patient completes activity. Assistance may be provided throughout the activity or intermittently. 3-Partial/Moderate Assistance-helper does LESS THAN HALF the effort. [place] lifts, holds or supports trunk or limbs, but provides less than half the effort. 2-Substantial/Maximal Assistance-helper does MORE THAN HALF the effort. [place] lifts or holds trunk or limbs and provides more than half the effort. 5-Stczookyv-aliblt does ALL the effort. Patient does none of the effort to complete the activity. Or, the assistance of 2 or more helpers is required for the patient to complete the activity. If activity was not attempted, code reason: 7-Patient Refused. 9-Not Applicable-not attempted and the patient did not perform the activity before the current illness, exacerbation or injury. 10-Not Attempted due to Environmental Limitations-(lack of equipment, weather restraints, etc.). 88-Not Attempted due to Medical Conditions or Safety Concerns. Lying to Sitting/Side of Bed(Q: 3 Sit to Stand (QC): 4 Weight Bearing Right Lower Extremity: Right Full Weight Bearing Left Lower Extremity: Left Full Weight Bearing Gait Training Does the Patient Walk?: Yes Distance: 50 Walk 10 feet (QC): 4 Walk 50 ft with 2 Turns(QC): 4 Gait Persons Needed: 1 Gait Assistive Device: FWW Treatments - Matching cones activity - Memory activity /c LE cone tapping Assessment Current Status: Fair Progress Pt performs lying to sitting transfer /c MIN assist for LE and trunk lifting. Pt ambulates around room while performing cone matching activity 40 feet /c use of FWW. Continues to display short step lengths that improve /c verbal cues. Pt also required verbal cues to navigate FWW around room due to frequently running into objects on both R and L sides. Performs cone tapping /c memory challenge activity while standing at FWW. Required verbal cues to side-step in order to tap cones without loss of balance. Pt displays good tolerance to standing activities and does not require a seated rest break till completion. Pt left /c OT post-treatment in room. Continue to progress pt per POC. PT Long-Term Goals Long-Term Goals PT Long-Term Goals Time Frame: Jul 02, 2023 Roll Left & Right (QC): 6 (Pt will be Mod I with bed mobility and transfers. ) Sit to Lying (QC): 6 (Pt will be Mod I with bed mobility and transfers. ) Lying-Sitting on Side/Bed(QC): 6 (Pt will be Mod I with bed mobility and transfers. ) Sit to Stand (QC): 6 (Pt will be Mod I with bed mobility and transfers. ) Chair/Hxl-lu-Hygjc Xfer(QC): 6 (Pt will be Mod I with bed mobility and transfers. ) Toilet Transfer (QC): 6 (Pt will be Mod I with bed mobility and transfers. ) Car Transfer (QC): 6 (Pt will be Mod I with bed mobility and transfers. ) Does the Patient Walk: Yes Walk 10 feet (QC): 4 (Pt will be SBA for walking and stairs to safely return home with spouse. ) Walk 50ft with 2 Turns (QC): 4 (Pt will be SBA for walking and stairs to safely return home with spouse. ) Walk 150 ft (QC): 4 (Pt will be SBA for walking and stairs to safely return home with spouse. ) Walking 10ft on Uneven Surface: 4 (Pt will be SBA for walking and stairs to safely return home with spouse. ) 1 Step (curb) (QC): 4 (Pt will be SBA for walking and stairs to safely return home with spouse. ) 4 Steps (QC): 4 (Pt will be SBA for walking and stairs to safely return home with spouse. ) 12 Steps (QC): 4 (Pt will be SBA for walking and stairs to safely return home with spouse. ) Picking up an Object (QC): 4 (Pt will be SBA for walking and stairs to safely return home with spouse. ) Does the Pt use WC or Scooter?: No Wheel 50 feet with 2 turns (QC: 9 Type: N/A Wheel 150 feet: 9 Type: N/A PT Plan Treatment/Plan Treatment Plan: Continue Plan of Care Treatment Plan: Bed Mobility, Concurrent Therapy, Education, Functional Activity Jemal, Functional Strength, Group Therapy, Gait, Safety, Therapeutic Exercise, Transfers Treatment Duration: Jul 02, 2023 Frequency: At least 5 of 7 days/Wk (IRF) Estimated Hrs Per Day: 1.5 hours per day Patient and/or Family Agrees t: Yes Time Time In: 1300 Time Out: 1330 DATE: Jun 20, 2023 Total Billed Treatment Time: 30 Total Billed Treatment 1 visit GT x 1 NM x 1 Co-treatment time: 4413-4577 Total treatment time: 6433-7426 ROCKY SCOTT PTA Jun 20, 2023 14:06
--- NOTE | 2023-06-20 14:37 | Occupational Ther Daily Note ---
OT Current Status-Daily Note Subjective Pt alert, lying in bed. Pt agrees to therapy. present in room. Co-treat with PT ([id number]), skills of 2 clinicians required for higher level balance tasks while standing and ambulating. PT focusing on balance and ambulation while OT focusing on B UE placement and functional balance for daily tasks. Telesitter in room. Mental Status/Objective Patient Orientation: Person, Confused ADL-Treatment VC to find supplies on sink for oral care. SBA for safety while standing at sink. Therapy Code Descriptions/Definitions Functional [place] Measure: 0=Not Assessed/NA 4=Minimal Assistance 1=Total Assistance 5=Supervision or Setup 2=Maximal Assistance 6=Modified [place] 3=Moderate Assistance 7=Complete IndependenceSCALE: Activities may be completed with or without assistive devices. 8-Imbkzjbuxz-lzrmkpx completes the activity by him/herself with no assistance from a helper. 5-Set-up or Clean-up Assistance-helper sets up or cleans up; patient completes activity. [place] assists only prior to or following the activity. 4-Supervision or Touching Assistance-helper provides verbal cues and/or touching/steadying and/or contact guard assistance as patient completes activity. Assistance may be provided throughout the activity or intermittently. 3-Partial/Moderate Assistance-helper does LESS THAN HALF the effort. [place] lifts, holds or supports trunk or limbs, but provides less than half the effort. 2-Substantial/Maximal Assistance-helper does MORE THAN HALF the effort. [place] lifts or holds trunk or limbs and provides more than half the effort. 4-Xmlxgjlse-kpbwep does ALL the effort. Patient does none of the effort to complete the activity. Or, the assistance of 2 or more helpers is required for the patient to complete the activity. If activity was not attempted, code reason: 7-Patient Refused. 9-Not Applicable-not attempted and the patient did not perform the activity before the current illness, exacerbation or injury. 10-Not Attempted due to Environmental Limitations-(lack of equipment, weather restraints, etc.). 88-Not Attempted due to Medical Conditions or Safety Concerns. Oral Hygiene (QC): 4 Other Treatment Pt completed sequencing, memory and problem solving tasks to increase awareness and strategies for daily functional tasks. Pt able to match 1:1 colors when taking one cone and ambulating to place on matching cone, only difficulty is to manage FWW through tight areas. Pt then working on looking at color then placing foot on cone of same color, pt able to do 1:1 and 2:2, difficulty 3:3. Pt then working on grasp release ball to toss in designated area, pt became stuck in a position then required to start over to allow fluid movements to toss ball in designated area. After session, lying in bed with call light/phone in reach. Safety measures in place. in room. OT Interventional Radiology Technologist Goals Interventional Radiology Technologist Goals Acute change in mental status: 0 Inattention: 0 Disorganized thinkin Altered level of consciousness: 0 Eating (QC): 6 Oral Hygiene (QC): 6 Toileting Hygiene (QC): 4 Shower/Bathe Self (QC): 4 Upper Body Dressing (QC): 5 Lower Body Dressing (QC): 4 On/Off Footwear (QC): 5 1=Demonstrate adherence to instructed precautions during ADL tasks. 2=Patient will verbalize/demonstrate understanding of assistive devices/modifi cations for ADL. 3=Patient will improve strength/tolerance for activity to enable patient to perform ADL's. OT Education/Plan Problem List/Assessment Assessment: Decreased Activ Tolerance, Decreased Safety Aware, Decreased UE Strength, Impaired Self-Care Skills Discharge Recommendations Plan/Recommendations: Continue POC Treatment Plan/Plan of Care Patient would benefit from OT for education, treatment and training to promote independence in ADL's, mobility, safety and/or upper extremity function for ADL's. Plan of Care: ADL Retraining, Caregiver Training, Cognitive Retraining, Functional Mobility, Group Exercise/Act as Ind, UE Funct Exercise/Act Treatment Duration: Jun 25, 2023 Frequency: At least 5 of 7 days/Wk (IRF) Estimated Hrs Per Day: 1.5 hours per day Agreement: Yes Rehab Potential: Good Time Start Time: 13:00 Stop Time: 13:45 DATE: Jun 20, 2023 Total Time Billed (hr/min): 45 Billed Treatment Time 1 visit-FA 3 (45 min) co-treat with PT [id number], individual [id number] ALYSSA ACEVEDO Jun 20, 2023 14:37
[2023-06-20 18:11] VITALS: BP 106/69
[2023-06-20] MEDS: warFARin 2.5 MG (COUMADIN) TAB PO SCH (18:48)
[2023-06-20 19:39] VITALS: BP 102/68
[2023-06-20] MEDS: DONEPEZIL 10 MG TABLET PO SCH (21:44)
[2023-06-20] MEDS: CITALOPRAM 20 MG TABLET PO SCH (21:44)
[2023-06-21 07:15] VITALS: BP 112/79
[2023-06-21] MEDS: carvediloL 3.125 MG TABLET PO SCH ×2 (09:07→17:36)
[2023-06-21] MEDS: DOCUSATE SODIUM 100 MG CAPSULE PO SCH ×2 (09:07→21:54)
[2023-06-21] MEDS: SACUBITRIL/VALSARTAN 24/26 MG TABLET PO SCH ×2 (09:07→21:54)
[2023-06-21] MEDS: SENNA W/DOCUSATE TABLET PO SCH ×2 (09:08→21:54)
[2023-06-21] MEDS: MEXILETINE 150 MG CAPSULE PO SCH ×2 (09:21→21:38)
[2023-06-21] MEDS: ALLOPURINOL 100 MG TABLET PO SCH ×2 (09:21→21:38)
[2023-06-21] MEDS: FUROSEMIDE 20 MG TABLET PO SCH (09:23)
--- NOTE | 2023-06-21 10:07 | PM&R Progress Note ---
Subjective HPI/CC On Admission Date Seen by Provider: Jun 21, 2023 Time Seen by Provider: 10:00 Subjective/Events-last exam 06/21/2023: No major issues No pain Incontinence periodically Bladder emptying schedule will be implemented 06/20/2023: Patient doing well Getting more alert today Reviewed meds and labs No falls at bedside 06/19/2023: Improved overall at bedside Appears more improved Very weak Incontinence is a new issue and likely related to COVID Review of Systems General: Fatigue, Malaise Genitourinary: Incontinence Objective Exam Vital Signs Vital Signs Date Time Temp Pulse Resp B/P (MAP) Pulse Ox O2 Delivery O2 Flow Rate FiO2 06/21/23 09:27 Room Air 06/21/23 07:15 36.0 79 18 112/79 (90) 98 Capillary Refill : General Appearance: No Apparent Distress, WD/WN, Chronically ill HEENT: PERRL/EOMI, Normal ENT Inspection, Pharynx Normal Neck: Full Range of Motion, Normal Inspection, Non Tender, Supple, Carotid Bruit Respiratory: Chest Non Tender, Lungs Clear, No Accessory Muscle Use, No Respiratory Distress, Decreased Breath Sounds Cardiovascular: Regular Rate, Rhythm, No Edema, No Gallop, No JVD, No Murmur, Normal Peripheral Pulses, Irregularly Irregular Gastrointestinal: Normal Bowel Sounds, No Organomegaly, No Pulsatile Mass, Non Tender, Soft Back: Normal Inspection, No CVA Tenderness, No Vertebral Tenderness Extremity: Normal Capillary Refill, Normal Inspection, Normal Range of Motion, Non Tender, No Calf Tenderness, No Pedal Edema Neurologic/Psychiatric: Alert, Oriented x3, No Motor/Sensory Deficits, processing associate II- XII Norm as Tested, Abnormal Gait, Depressed Affect, Motor Weakness (Severe gen eralized weakness) Skin: Normal Color, Warm/Dry Lymphatic: No Adenopathy Results/Procedures Lab Patient resulted labs reviewed. FIM Transfers Therapy Code Descriptions/Definitions Functional [place] Measure: 0=Not Assessed/NA 4=Minimal Assistance 1=Total Assistance 5=Supervision or Setup 2=Maximal Assistance 6=Modified [place] 3=Moderate Assistance 7=Complete IndependenceSCALE: Activities may be completed with or without assistive devices. 1-Kewloxgwue-srbulpl completes the activity by him/herself with no assistance from a helper. 5-Set-up or Clean-up Assistance-helper sets up or cleans up; patient completes activity. [place] assists only prior to or following the activity. 4-Supervision or Touching Assistance-helper provides verbal cues and/or touching/steadying and/or contact guard assistance as patient completes activity. Assistance may be provided throughout the activity or intermittently. 3-Partial/Moderate Assistance-helper does LESS THAN HALF the effort. [place] lifts, holds or supports trunk or limbs, but provides less than half the effort. 2-Substantial/Maximal Assistance-helper does MORE THAN HALF the effort. [place] lifts or holds trunk or limbs and provides more than half the effort. 3-Qrsettqat-iaybpu does ALL the effort. Patient does none of the effort to complete the activity. Or, the assistance of 2 or more helpers is required for the patient to complete the activity. If activity was not attempted, code reason: 7-Patient Refused. 9-Not Applicable-not attempted and the patient did not perform the activity before the current illness, exacerbation or injury. 10-Not Attempted due to Environmental Limitations-(lack of equipment, weather restraints, etc.). 88-Not Attempted due to Medical Conditions or Safety Concerns. Roll Left to Right (QC): 4 (SBA ) Sit to Lying (QC): 4 (SBA ) Sit to Stand (QC): 4 Chair/Zhg-qb-Wkuja Xfer(QC): 4 Car Transfer (QC): 88 (Pt isolated to room secondary to covid ) Gait Training Does the Patient Walk?: Yes Distance: 50 Walk 10 feet (QC): 4 Walk 50 ft with 2 Turns(QC): 4 Walk 150 ft (QC): 88 (Proximal weakness ) Walking 10ft/uneven surface-QC: 88 (Proximal weakness; balance/safety ) Gait Persons Needed: 1 Gait Assistive Device: FWW Wheelchair Training Does the Pt Use a Wheelchair?: No Wheel 50 ft with 2 turns (QC): 9 Wheel 150 ft (QC): 9 Type of Wheelchair: N/A Stair Training #of Steps: 1 1 Step (curb) (QC): 1 (Min/Mod A x 2 for balance/safety ) 4 Steps (QC): 88 (Balance and safety ) 12 Steps (QC): 88 (Balance and safety ) Balance Picking up an Object (QC): 3 (Min/Mod A for balance/safety ) ADL-Treatment Eating (QC): 5 (set-up A to open packages and containers) Oral Hygiene (QC): 4 Bathing Location: L Arm, R Arm, L Upper Leg, R Upper Leg, L Lower Leg (includin g foot), R Lower Leg (including foot), Chest, Abdomen, Buttocks, Perineal Area Shower/Bathe Self (QC): 4 (SBA for bathing seated on built in shower bench in walk in shower with pt utilizing GB's and hand held shower head. Pt requires verbal cues for thoroughness to wash all areas as well as to dry off all areas. ) Upper Body Dressing (QC): 4 (SBA for donning/doffing shirt seated in WC. Pt requires cues to initiate task.) Lower Body Dressing (QC): 3 (Partial/mod A for donning/doffing brief and pants. Pt attempts to perform figure 4 position seated in WC with pt unable to thread RLE into pants leg. Therapist educated pt on threading the RLE first, since it is his weaker leg, and then thread the LLE. Pt continues to thread LLE first, which requires him to need (A) with donning/doffing pants. Pt performs sit<>stand with CGA x 1 with RW available for safety where pt pulls pants over hips.) On/Off Footwear (QC): 3 (Partial/mod A to don/doff socks seated in WC. Pt attempts to perform 4 to don/doff socks with pt unable to do. Pt able to bend over and doff socks, but unable to bend over to don them. stated at initial evaluation that this is pt's baseline function as she always assists with putting his socks on.) Toileting Hygiene (QC): 3 (Partial/mod A for thoroughness with clean gely area and buttocks; pt able to manage clothing. ) Assessment/Plan Assessment and Plan Assess & Plan/Chief Complaint Assessment: Myopathy COVID-19 Altered mental status Dementia Pacemaker Valve replacement Warfarin for anticoagulation Chronic kidney disease Gout Dehydration on admit Cardiomyopathy on Entresto Plan: PT and OT Home meds Monitor closely 06/19/2023: Monitor O2 Urinary incontinence management 06/20/2023: Supportive care Incontinence care 06/21/2023: Monitor closely Bladder emptying schedule (1) Myopathy (2) COVID-19 (3) Altered mental status DEE KAYE DO Jun 21, 2023 10:07
[2023-06-21 17:31] VITALS: BP 109/65
[2023-06-21] MEDS: warFARin 5 MG (COUMADIN) TAB PO SCH (17:36)
[2023-06-21 19:54] VITALS: BP 94/62
[2023-06-21] MEDS: DONEPEZIL 10 MG TABLET PO SCH (21:38)
[2023-06-21] MEDS: CITALOPRAM 20 MG TABLET PO SCH (21:38)
[2023-06-22 05:04] LABS: MEAN PLATELET VOLUME 9.8 fL (9.0-12.2); MONOCYTES # (AUTO) 0.5 10^3/uL (0.0-1.0)
[2023-06-22 05:06] LABS: BASOPHILS % (AUTO) 0 % (0-10); EOSINOPHILS % (AUTO) 1 % (0-10); HEMATOCRIT 44 % (40-54); HEMOGLOBIN 15.7 g/dL (13.3-17.7); LYMPHOCYTES # (AUTO) 1.6 10^3/uL (1.0-4.0); LYMPHOCYTES % (AUTO) 37 % (12-44); MEAN CORPUSCULAR HEMOGLOBIN 33 pg (25-34); MEAN CORPUSCULAR HGB CONC 35 g/dL (32-36); MEAN CORPUSCULAR VOLUME 92 fL (80-99); MONOCYTES % (AUTO) 12 % (0-12); NEUTROPHILS # (AUTO) 1.9 10^3/uL (1.8-7.8); NEUTROPHILS % (AUTO) 47 % (42-75); PLATELET COUNT 114 10^3/uL (130-400); WHITE BLOOD COUNT 4.1 10^3/uL (4.3-11.0)
[2023-06-22 05:15] LABS: INR 3.4 (0.8-1.4)
[2023-06-22 05:21] LABS: ALBUMIN 3.3 GM/DL (3.2-4.5); BILIRUBIN,TOTAL 1.1 MG/DL (0.1-1.0); CALCIUM 8.6 MG/DL (8.5-10.1); CREATININE SERUM 1.21 MG/DL (0.60-1.30); POTASSIUM 4.1 MMOL/L (3.6-5.0); TOTAL PROTEIN 5.7 GM/DL (6.4-8.2)
[2023-06-22 07:39] VITALS: BP 122/61
[2023-06-22] MEDS: SACUBITRIL/VALSARTAN 24/26 MG TABLET PO SCH ×2 (07:51→21:55)
[2023-06-22] MEDS: carvediloL 3.125 MG TABLET PO SCH ×2 (07:51→17:50)
[2023-06-22] MEDS: SPIRONOLACTONE 25 MG TABLET PO SCH (08:50)
[2023-06-22] MEDS: ALLOPURINOL 100 MG TABLET PO SCH ×2 (08:50→21:49)
[2023-06-22] MEDS: MEXILETINE 150 MG CAPSULE PO SCH ×2 (08:50→21:49)
[2023-06-22] MEDS: DOCUSATE SODIUM 100 MG CAPSULE PO SCH ×2 (09:02→21:55)
[2023-06-22] MEDS: SENNA W/DOCUSATE TABLET PO SCH ×2 (09:02→21:56)
--- NOTE | 2023-06-22 09:37 | PM&R Progress Note ---
Subjective HPI/CC On Admission Date Seen by Provider: Jun 22, 2023 Time Seen by Provider: 16:00 Subjective/Events-last exam 06/22/2023: Patient doing better Bladder schedule is working well for him at bedside No major concerns INR 3.4 we will hold Coumadin today 06/21/2023: No major issues No pain Incontinence periodically Bladder emptying schedule will be implemented 06/20/2023: Patient doing well Getting more alert today Reviewed meds and labs No falls at bedside 06/19/2023: Improved overall at bedside Appears more improved Very weak Incontinence is a new issue and likely related to COVID Review of Systems General: Fatigue, Malaise Objective Exam Vital Signs Vital Signs Date Time Temp Pulse Resp B/P (MAP) Pulse Ox O2 Delivery O2 Flow Rate FiO2 06/22/23 21:45 94 Room Air 06/22/23 20:04 36.0 77 18 113/83 (93) Capillary Refill : General Appearance: No Apparent Distress, WD/WN, Chronically ill HEENT: PERRL/EOMI, Normal ENT Inspection, Pharynx Normal Neck: Full Range of Motion, Normal Inspection, Non Tender, Supple, Carotid Bruit Respiratory: Chest Non Tender, Lungs Clear, No Accessory Muscle Use, No Respiratory Distress, Decreased Breath Sounds Cardiovascular: Regular Rate, Rhythm, No Edema, No Gallop, No JVD, No Murmur, Normal Peripheral Pulses, Irregularly Irregular Gastrointestinal: Normal Bowel Sounds, No Organomegaly, No Pulsatile Mass, Non Tender, Soft Back: Normal Inspection, No CVA Tenderness, No Vertebral Tenderness Extremity: Normal Capillary Refill, Normal Inspection, Normal Range of Motion, Non Tender, No Calf Tenderness, No Pedal Edema Neurologic/Psychiatric: Alert, Oriented x3, No Motor/Sensory Deficits, jewel bearing driller II- XII Norm as Tested, Abnormal Gait, Depressed Affect, Motor Weakness (Severe generalized weakness) Skin: Normal Color, Warm/Dry Lymphatic: No Adenopathy Results/Procedures Lab Laboratory Tests 06/22/23 04:55 Patient resulted labs reviewed. FIM Transfers Therapy Code Descriptions/Definitions Functional [place] Measure: 0=Not Assessed/NA 4=Minimal Assistance 1=Total Assistance 5=Supervision or Setup 2=Maximal Assistance 6=Modified [place] 3=Moderate Assistance 7=Complete IndependenceSCALE: Activities may be completed with or without assistive devices. 9-Hkypxibogm-pdegnmr completes the activity by him/herself with no assistance from a helper. 5-Set-up or Clean-up Assistance-helper sets up or cleans up; patient completes activity. [place] assists only prior to or following the activity. 4-Supervision or Touching Assistance-helper provides verbal cues and/or touching/steadying and/or contact guard assistance as patient completes activity. Assistance may be provided throughout the activity or intermittently. 3-Partial/Moderate Assistance-helper does LESS THAN HALF the effort. [place] lifts, holds or supports trunk or limbs, but provides less than half the effort. 2-Substantial/Maximal Assistance-helper does MORE THAN HALF the effort. [place] lifts or holds trunk or limbs and provides more than half the effort. 7-Akboxvqdv-vpkgpt does ALL the effort. Patient does none of the effort to c omplete the activity. Or, the assistance of 2 or more helpers is required for the patient to complete the activity. If activity was not attempted, code reason: 7-Patient Refused. 9-Not Applicable-not attempted and the patient did not perform the activity before the current illness, exacerbation or injury. 10-Not Attempted due to Environmental Limitations-(lack of equipment, weather restraints, etc.). 88-Not Attempted due to Medical Conditions or Safety Concerns. Roll Left to Right (QC): 4 (SBA ) Sit to Lying (QC): 4 (SBA ) Sit to Stand (QC): 4 Chair/Fls-xz-Vfptw Xfer(QC): 4 Car Transfer (QC): 88 (Pt isolated to room secondary to covid ) Gait Training Does the Patient Walk?: Yes Distance: 50 Walk 10 feet (QC): 4 Walk 50 ft with 2 Turns(QC): 4 Walk 150 ft (QC): 88 (Proximal weakness ) Walking 10ft/uneven surface-QC: 88 (Proximal weakness; balance/safety ) Gait Persons Needed: 1 Gait Assistive Device: FWW Wheelchair Training Does the Pt Use a Wheelchair?: No Wheel 50 ft with 2 turns (QC): 9 Wheel 150 ft (QC): 9 Type of Wheelchair: N/A Stair Training #of Steps: 1 1 Step (curb) (QC): 1 (Min/Mod A x 2 for balance/safety ) 4 Steps (QC): 88 (Balance and safety ) 12 Steps (QC): 88 (Balance and safety ) Balance Picking up an Object (QC): 3 (Min/Mod A for balance/safety ) ADL-Treatment Eating (QC): 5 (set-up A to open packages and containers) Oral Hygiene (QC): 4 Bathing Location: L Arm, R Arm, L Upper Leg, R Upper Leg, L Lower Leg (including foot), R Lower Leg (including foot), Chest, Abdomen, Buttocks, Perineal Area Shower/Bathe Self (QC): 4 (SBA for bathing seated on built in shower bench in walk in shower with pt utilizing GB's and hand held shower head. Pt requires verbal cues for thoroughness to wash all areas as well as to dry off all areas. ) Upper Body Dressing (QC): 4 (SBA for donning/doffing shirt seated in WC. Pt requires cues to initiate task.) Lower Body Dressing (QC): 3 (Partial/mod A for donning/doffing brief and pants. Pt attempts to perform figure 4 position seated in WC with pt unable to thread RLE into pants leg. Therapist educated pt on threading the RLE first, since it i s his weaker leg, and then thread the LLE. Pt continues to thread LLE first, which requires him to need (A) with donning/doffing pants. Pt performs sit<>stand with CGA x 1 with RW available for safety where pt pulls pants over hips.) On/Off Footwear (QC): 3 (Partial/mod A to don/doff socks seated in WC. Pt attempts to perform 4 to don/doff socks with pt unable to do. Pt able to bend over and doff socks, but unable to bend over to don them. stated at initial evaluation that this is pt's baseline function as she always assists with putting his socks on.) Toileting Hygiene (QC): 3 (Partial/mod A for thoroughness with clean gely area and buttocks; pt able to manage clothing. ) Assessment/Plan Assessment and Plan Assess & Plan/Chief Complaint Assessment: Myopathy COVID-19 Altered mental status Dementia Pacemaker Valve replacement Warfarin for anticoagulation Chronic kidney disease Gout Dehydration on admit Cardiomyopathy on Entresto Plan: PT and OT Home meds Monitor closely 06/19/2023: Monitor O2 Urinary incontinence management 06/20/2023: Supportive care Incontinence care 06/21/2023: Monitor closely Bladder emptying schedule 06/22/2023: Supportive care Hold Coumadin today (1) Myopathy (2) COVID-19 (3) Altered mental status DEE KAYE DO Jun 22, 2023 09:37
[2023-06-22 16:49] VITALS: BP 127/73
[2023-06-22 17:49] VITALS: BP 104/75
[2023-06-22 20:04] VITALS: BP 113/83
[2023-06-22] MEDS: DONEPEZIL 10 MG TABLET PO SCH (21:49)
[2023-06-22] MEDS: CITALOPRAM 20 MG TABLET PO SCH (21:49)
--- NOTE | 2023-06-23 04:44 | PM&R Progress Note ---
Subjective HPI/CC On Admission Date Seen by Provider: Jun 23, 2023 Time Seen by Provider: 10:30 Subjective/Events-last exam 06/23/2023: Patient doing well INR good so we will restart warfarin at bedside Cough is improved 06/22/2023: Patient doing better Bladder schedule is working well for him at bedside No major concerns INR 3.4 we will hold Coumadin today 06/21/2023: No major issues No pain Incontinence periodically Bladder emptying schedule will be implemented 06/20/2023: Patient doing well Getting more alert today Reviewed meds and labs No falls at bedside 06/19/2023: Improved overall at bedside Appears more improved Very weak Incontinence is a new issue and likely related to COVID Review of Systems General: Fatigue, Malaise Objective Exam Vital Signs Vital Signs Date Time Temp Pulse Resp B/P (MAP) Pulse Ox O2 Delivery O2 Flow Rate FiO2 06/23/23 18:00 72 18 118/69 (85) 98 Room Air 06/23/23 07:54 36.2 Capillary Refill : General Appearance: No Apparent Distress, WD/WN, Chronically ill HEENT: PERRL/EOMI, Normal ENT Inspection, Pharynx Normal Neck: Full Range of Motion, Normal Inspection, Non Tender, Supple, Carotid Bruit Respiratory: Chest Non Tender, Lungs Clear, No Accessory Muscle Use, No Respiratory Distress, Decreased Breath Sounds Cardiovascular: Regular Rate, Rhythm, No Edema, No Gallop, No JVD, No Murmur, Normal Peripheral Pulses, Irregularly Irregular Gastrointestinal: Normal Bowel Sounds, No Organomegaly, No Pulsatile Mass, Non Tender, Soft Back: Normal Inspection, No CVA Tenderness, No Vertebral Tenderness Extremity: Normal Capillary Refill, Normal Inspection, Normal Range of Motion, Non Tender, No Calf Tenderness, No Pedal Edema Neurologic/Psychiatric: Alert, Oriented x3, No Motor/Sensory Deficits, market development trainer II- XII Norm as Tested, Abnormal Gait, Depressed Affect, Motor Weakness (Severe generalized weakness) Skin: Normal Color, Warm/Dry Lymphatic: No Adenopathy Results/Procedures Lab Patient resulted labs reviewed. FIM Transfers Therapy Code Descriptions/Definitions Functional [place] Measure: 0=Not Assessed/NA 4=Minimal Assistance 1=Total Assistance 5=Supervision or Setup 2=Maximal Assistance 6=Modified [place] 3=Moderate Assistance 7=Complete IndependenceSCALE: Activities may be completed with or without assistive devices. 3-Ujthmsghzj-dhnlxtl completes the activity by him/herself with no assistance from a helper. 5-Set-up or Clean-up Assistance-helper sets up or cleans up; patient completes activity. [place] assists only prior to or following the activity. 4-Supervision or Touching Assistance-helper provides verbal cues and/or touching/steadying and/or contact guard assistance as patient completes activity. Assistance may be provided throughout the activity or intermittently. 3-Partial/Moderate Assistance-helper does LESS THAN HALF the effort. [place] li fts, holds or supports trunk or limbs, but provides less than half the effort. 2-Substantial/Maximal Assistance-helper does MORE THAN HALF the effort. [place] lifts or holds trunk or limbs and provides more than half the effort. 8-Wkgjaxzfz-mjniqk does ALL the effort. Patient does none of the effort to complete the activity. Or, the assistance of 2 or more helpers is required for the patient to complete the activity. If activity was not attempted, code reason: 7-Patient Refused. 9-Not Applicable-not attempted and the patient did not perform the activity before the current illness, exacerbation or injury. 10-Not Attempted due to Environmental Limitations-(lack of equipment, weather restraints, etc.). 88-Not Attempted due to Medical Conditions or Safety Concerns. Roll Left to Right (QC): 4 (SBA ) Sit to Lying (QC): 4 (SBA ) Sit to Stand (QC): 4 Chair/Zlm-db-Lglad Xfer(QC): 4 Car Transfer (QC): 88 (Pt isolated to room secondary to covid ) Gait Training Does the Patient Walk?: Yes Distance: 50 Walk 10 feet (QC): 4 Walk 50 ft with 2 Turns(QC): 4 Walk 150 ft (QC): 88 (Proximal weakness ) Walking 10ft/uneven surface-QC: 88 (Proximal weakness; balance/safety ) Gait Persons Needed: 1 Gait Assistive Device: FWW Wheelchair Training Does the Pt Use a Wheelchair?: No Wheel 50 ft with 2 turns (QC): 9 Wheel 150 ft (QC): 9 Type of Wheelchair: N/A Stair Training #of Steps: 1 1 Step (curb) (QC): 1 (Min/Mod A x 2 for balance/safety ) 4 Steps (QC): 88 (Balance and safety ) 12 Steps (QC): 88 (Balance and safety ) Balance Picking up an Object (QC): 3 (Min/Mod A for balance/safety ) ADL-Treatment Eating (QC): 5 (set-up A to open packages and containers) Oral Hygiene (QC): 4 Bathing Location: L Arm, R Arm, L Upper Leg, R Upper Leg, L Lower Leg (including foot), R Lower Leg (including foot), Chest, Abdomen, Buttocks, Perineal Area Shower/Bathe Self (QC): 4 (SBA for bathing seated on built in shower bench in walk in shower with pt utilizing GB's and hand held shower head. Pt requires verbal cues for thoroughness to wash all areas as well as to dry off all areas. ) Upper Body Dressing (QC): 4 (SBA for donning/doffing shirt seated in WC. Pt requires cues to initiate task.) Lower Body Dressing (QC): 3 (Partial/mod A for donning/doffing brief and pants. Pt attempts to perform figure 4 position seated in WC with pt unable to thread RLE into pants leg. Therapist educated pt on threading the RLE first, since it is his weaker leg, and then thread the LLE. Pt continues to thread LLE first, which requires him to need (A) with donning/doffing pants. Pt performs sit<>stand with CGA x 1 with RW available for safety where pt pulls pants over hips.) On/Off Footwear (QC): 3 (Partial/mod A to don/doff socks seated in WC. Pt attempts to perform 4 to don/doff socks with pt unable to do. Pt able to bend over and doff socks, but unable to bend over to don them. stated at initial evaluation that this is pt's baseline function as she always assists with putting his socks on.) Toileting Hygiene (QC): 3 (Partial/mod A for thoroughness with clean gely area and buttocks; pt able to manage clothing. ) Assessment/Plan Assessment and Plan Assess & Plan/Chief Complaint Assessment: Myopathy COVID-19 Altered mental status Dementia Pacemaker Valve replacement Warfarin for anticoagulation Chronic kidney disease Gout Dehydration on admit Cardiomyopathy on Entresto Plan: PT and OT Home meds Monitor closely 06/19/2023: Monitor O2 Urinary incontinence management 06/20/2023: Supportive care Incontinence care 06/21/2023: Monitor closely Bladder emptying schedule 06/22/2023: Supportive care Hold Coumadin today 06/23/2023: Supportive care we will continue Monitor closely (1) Myopathy (2) COVID-19 (3) Altered mental status DEE KAYE DO Jun 23, 2023 04:44
[2023-06-23 06:40] LABS: INR 2.8 (0.8-1.4); PROTHROMBIN TIME PATIENT 29.4 SEC (12.2-14.7)
[2023-06-23 07:54] VITALS: BP 115/66
--- NOTE | 2023-06-23 10:09 | Physical Therapy Daily Note ---
PT Daily Note-Current Subjective Pt sitting in recliner upon arrival. Pt agrees to PT then joined by OT for co- treat for tx. Pain Location: No Pain Reported Section J - Health Conditions 1. Rarely or not at all 2. Occasionally 3. Frequently 4. Almost constantly 8. Unable to answer Pain Effect on Sleep: 1 Pain Interference with Therapy: 1 Pain Interference w/Day-to-Day: 1 Mental Status Patient Orientation: Person, Place, Situation Transfers SCALE: Activities may be completed with or without assistive devices. 0-Aiswmqnjmx-ltlocii completes the activity by him/herself with no assistance from a helper. 5-Set-up or Clean-up Assistance-helper sets up or cleans up; patient completes activity. [place] assists only prior to or following the activity. 4-Supervision or Touching Assistance-helper provides verbal cues and/or touching/steadying and/or contact guard assistance as patient completes activity. Assistance may be provided throughout the activity or intermittently. 3-Partial/Moderate Assistance-helper does LESS THAN HALF the effort. [place] lifts, holds or supports trunk or limbs, but provides less than half the effort. 2-Substantial/Maximal Assistance-helper does MORE THAN HALF the effort. [place] lifts or holds trunk or limbs and provides more than half the effort. 2-Moziiqswx-qoruye does ALL the effort. Patient does none of the effort to complete the activity. Or, the assistance of 2 or more helpers is required for the patient to complete the activity. If activity was not attempted, code reason: 7-Patient Refused. 9-Not Applicable-not attempted and the patient did not perform the activity before the current illness, exacerbation or injury. 10-Not Attempted due to Environmental Limitations-(lack of equipment, weather restraints, etc.). 88-Not Attempted due to Medical Conditions or Safety Concerns. Sit to Stand (QC): 4 Chair/Key-io-Etyjm Xfer(QC): 4 Toilet Transfer (QC): 4 Weight Bearing Right Lower Extremity: Right Full Weight Bearing Left Lower Extremity: Left Full Weight Bearing Gait Training Does the Patient Walk?: Yes Distance: 15' x2 Walk 10 feet (QC): 4 Gait Assistive Device: Handheld Assist Treatments Pt works on Supine EX in recliner then OT arrives for co-treat. Co-treat with PT secondary to decreased endurance, activity tolerance, and the need of a second person for safety to increase (I) with functional tasks and to decrease the burden of care. Pt focusing on functional mobility and standing balance while OT focusing on standing tolerance and cognition. Pt amb. to BR to shave then returns to recliner to change clothes before resting at end of tx. Ending session, pt remained seated in bedside recliner with needs/call light in reach and chair alarm set. at bed side. Assessment Current Status: Good Progress Pt continuing to make good progression towards stated goals. Balance and fatigue have improved as well as cognition, chair alarm still needed though for safety. PT Manager Of Selection And Assessment Goals Nursing Home Goals PT Manager Of Selection And Assessment Goals Time Frame: Jul 02, 2023 Roll Left & Right (QC): 6 (Pt will be Mod I with bed mobility and transfers. ) Sit to Lying (QC): 6 (Pt will be Mod I with bed mobility and transfers. ) Lying-Sitting on Side/Bed(QC): 6 (Pt will be Mod I with bed mobility and transfers. ) Sit to Stand (QC): 6 (Pt will be Mod I with bed mobility and transfers. ) Chair/Dyo-sy-Mpvdb Xfer(QC): 6 (Pt will be Mod I with bed mobility and transfers. ) Toilet Transfer (QC): 6 (Pt will be Mod I with bed mobility and transfers. ) Car Transfer (QC): 6 (Pt will be Mod I with bed mobility and transfers. ) Does the Patient Walk: Yes Walk 10 feet (QC): 4 (Pt will be SBA for walking and stairs to safely return home with spouse. ) Walk 50ft with 2 Turns (QC): 4 (Pt will be SBA for walking and stairs to safely return home with spouse. ) Walk 150 ft (QC): 4 (Pt will be SBA for walking and stairs to safely return home with spouse. ) Walking 10ft on Uneven Surface: 4 (Pt will be SBA for walking and stairs to safely return home with spouse. ) 1 Step (curb) (QC): 4 (Pt will be SBA for walking and stairs to safely return home with spouse. ) 4 Steps (QC): 4 (Pt will be SBA for walking and stairs to safely return home with spouse. ) 12 Steps (QC): 4 (Pt will be SBA for walking and stairs to safely return home with spouse. ) Picking up an Object (QC): 4 (Pt will be SBA for walking and stairs to safely return home with spouse. ) Does the Pt use WC or Scooter?: No Wheel 50 feet with 2 turns (QC: 9 Type: N/A Wheel 150 feet: 9 Type: N/A PT Plan Problem List Problem List: Safety Treatment/Plan Treatment Plan: Continue Plan of Care Treatment Plan: Bed Mobility, Concurrent Therapy, Education, Functional Activity Jemal, Functional Strength, Group Therapy, Gait, Safety, Therapeutic Exercise, Transfers Treatment Duration: Jul 02, 2023 Frequency: At least 5 of 7 days/Wk (IRF) Estimated Hrs Per Day: 1.5 hours per day Patient and/or Family Agrees t: Yes Safety Risks/Education Patient Education: Correct Positioning, Safety Issues Teaching Recipient: Patient Teaching Methods: Discussion Response to Teaching: Verbalize Understanding Time Time In: 00 Time Out: 1000 DATE: Jun 23, 2023 Total Billed Treatment Time: 60 Total Billed Treatment Co-treat w/OT for 45m (7040-5518) Ind. Tx 15m (5686-1243) 1, EX (15m), FA x2 (30m) & GT (15m) JUNE VILLALTA JEWELRY TECHNICIAN Jun 23, 2023 10:09
[2023-06-23] MEDS: carvediloL 3.125 MG TABLET PO SCH ×3 (10:26→19:09)
[2023-06-23] MEDS: SACUBITRIL/VALSARTAN 24/26 MG TABLET PO SCH ×2 (10:26→20:30)
[2023-06-23] MEDS: MEXILETINE 150 MG CAPSULE PO SCH ×2 (10:29→20:46)
[2023-06-23] MEDS: DOCUSATE SODIUM 100 MG CAPSULE PO SCH ×2 (10:29→20:45)
[2023-06-23] MEDS: ALLOPURINOL 100 MG TABLET PO SCH ×2 (10:29→20:45)
[2023-06-23] MEDS: SENNA W/DOCUSATE TABLET PO SCH ×2 (10:30→20:45)
[2023-06-23] MEDS: FUROSEMIDE 20 MG TABLET PO SCH (10:35)
--- NOTE | 2023-06-23 14:07 | Occupational Ther Daily Note ---
OT Current Status-Daily Note Subjective Pt seated in bedside chair upon arrival with no c/o pain at this time. Pt consented to OT session this A.M. Co-treat with PT secondary to decreased endurance, activity tolerance, and the need of a second person for safety to increase (I) with functional tasks and to decrease the burden of care. Pt focusing on functional mobility and standing balance while OT focusing on standing tolerance and cognition. Pain Numeric Pain Scale: 0-No Pain Location: No Pain Reported ADL-Treatment Therapy Code Descriptions/Definitions Functional [place] Measure: 0=Not Assessed/NA 4=Minimal Assistance 1=Total Assistance 5=Supervision or Setup 2=Maximal Assistance 6=Modified [place] 3=Moderate Assistance 7=Complete IndependenceSCALE: Activities may be completed with or without assistive devices. 8-Qutcdegcuz-rbeggut completes the activity by him/herself with no assistance from a helper. 5-Set-up or Clean-up Assistance-helper sets up or cleans up; patient completes activity. [place] assists only prior to or following the activity. 4-Supervision or Touching Assistance-helper provides verbal cues and/or touching/steadying and/or contact guard assistance as patient completes activity. Assistance may be provided throughout the activity or intermittently. 3-Partial/Moderate Assistance-helper does LESS THAN HALF the effort. [place] lifts, holds or supports trunk or limbs, but provides less than half the effort. 2-Substantial/Maximal Assistance-helper does MORE THAN HALF the effort. [place] lifts or holds trunk or limbs and provides more than half the effort. 5-Vxloufelx-vuennx does ALL the effort. Patient does none of the effort to complete the activity. Or, the assistance of 2 or more helpers is required for the patient to complete the activity. If activity was not attempted, code reason: 7-Patient Refused. 9-Not Applicable-not attempted and the patient did not perform the activity before the current illness, exacerbation or injury. 10-Not Attempted due to Environmental Limitations-(lack of equipment, weather restraints, etc.). 88-Not Attempted due to Medical Conditions or Safety Concerns. Oral Hygiene (QC): 4 (Pt performed oral care standing at sink. Pt required verbal cues for sequencing. Pt performed shaving seated in WC. Verbal cues neede d for thoroughness and sequencing. ) Upper Body Dressing (QC): 4 (SBA for UBD with pt performed while seated in bedside chair with pt requiring verbal cues. ) Lower Body Dressing (QC): 4 (SBA for LBD with pt donning/doffing pants and brief while seated in bedisde chair and performing sit<>stand to pull pants over hips. Verbal cues needed for sequencing. ) On/Off Footwear: 5 (Set-up A for donning/doffing socks seated in bedisde chair) Pt continues to require verbal cues for sequencing tasks. Pt has made tremendous improvements in strength, balance, functional mobility, and activity tolerance. Education OT Patient Education: Energy conservation, Exercise program, Home exercise program, Modified ADL techniques, Progress toward Goal/Update tx plan, Purpose of tx/functional activities, Rehab process, Safety issues, Transfer techniques Teaching Recipient: Patient Teaching Methods: Demonstration, Discussion Response to Teaching: Reinforcement Needed OT Metal Furniture [place] Goals Metal Furniture [employer] Goals Acute change in mental status: 0 Inattention: 0 Disorganized thinkin Altered level of consciousness: 0 Eating (QC): 6 Oral Hygiene (QC): 6 Toileting Hygiene (QC): 4 Shower/Bathe Self (QC): 4 Upper Body Dressing (QC): 5 Lower Body Dressing (QC): 4 On/Off Footwear (QC): 5 1=Demonstrate adherence to instructed precautions during ADL tasks. 2=Patient will verbalize/demonstrate understanding of assistive devices/modifications for ADL. 3=Patient will improve strength/tolerance for activity to enable patient to perform ADL's. OT Education/Plan Problem List/Assessment Assessment: Decreased Activ Tolerance, Decreased Safety Aware, Decreased UE Strength, Impaired Cognition, Impaired Funct Balance, Impaired I ADL's, Impaired Self-Care Skills Discharge Recommendations Plan/Recommendations: Continue POC Treatment Plan/Plan of Care Treatment,Training & Education: Yes Patient would benefit from OT for education, treatment and training to promote independence in ADL's, mobility, safety and/or upper extremity function for ADL's. Plan of Care: ADL Retraining, Caregiver Training, Cognitive Retraining, Functional Mobility, Group Exercise/Act as Ind, UE Funct Exercise/Act Treatment Duration: Jun 25, 2023 Frequency: At least 5 of 7 days/Wk (IRF) Estimated Hrs Per Day: 1.5 hours per day Agreement: Yes Rehab Potential: Good Ending session, pt remained seated in bedside recliner with needs/call light in reach and chair alarm set. at bedside. Pt continuing to make good progression towards stated goals. Time Start Time: 09:15 Stop Time: 10:00 DATE: Jun 23, 2023 Total Time Billed (hr/min): 45 Billed Treatment Time 45 minutes ADL 3 CHAS VILLANUEVA, OT Jun 23, 2023 14:07
--- NOTE | 2023-06-23 14:52 | Occupational Ther Daily Note ---
OT Current Status-Daily Note Subjective Pt seated in bedside chair upon arrival with at bedside. Pt and consented to OT session. Co-treat with PT secondary to decreased endurance, activity tolerance, and the need of a second person for safety to increase (I) with functional tasks and to decrease the burden of care. Pt focusing on functional mobility and standing balance while OT focusing on standing tolerance and cognition. Pain Numeric Pain Scale: 0-No Pain Location: No Pain Reported ADL-Treatment Therapy Code Descriptions/Definitions Functional [place] Measure: 0=Not Assessed/NA 4=Minimal Assistance 1=Total Assistance 5=Supervision or Setup 2=Maximal Assistance 6=Modified [place] 3=Moderate Assistance 7=Complete IndependenceSCALE: Activities may be completed with or without assistive devices. 1-Ixroqayvwi-nzaahfz completes the activity by him/herself with no assistance from a helper. 5-Set-up or Clean-up Assistance-helper sets up or cleans up; patient completes activity. [place] assists only prior to or following the activity. 4-Supervision or Touching Assistance-helper provides verbal cues and/or touching/steadying and/or contact guard assistance as patient completes activity. Assistance may be provided throughout the activity or intermittently. 3-Partial/Moderate Assistance-helper does LESS THAN HALF the effort. [place] lifts, holds or supports trunk or limbs, but provides less than half the effort. 2-Substantial/Maximal Assistance-helper does MORE THAN HALF the effort. [place] lifts or holds trunk or limbs and provides more than half the effort. 1-Mjvbfpyhh-dagrop does ALL the effort. Patient does none of the effort to complete the activity. Or, the assistance of 2 or more helpers is required for the patient to complete the activity. If activity was not attempted, code reason: 7-Patient Refused. 9-Not Applicable-not attempted and the patient did not perform the activity before the current illness, exacerbation or injury. 10-Not Attempted due to Environmental Limitations-(lack of equipment, weather restraints, etc.). 88-Not Attempted due to Medical Conditions or Safety Concerns. Other Treatment Pt performed therapuetic activity where cones were placed in various planes throughout room where pt retrieved cones while following verbal cues to increase activity tolerance, executive functioning skills, balance, visual scanning, and endurance to increase (I) with ADLs and IADLs. Pt required min verbal cues and visual cues to complete task. Pt ambulated Pt reported no pain while performing activity. Seated rest break needed secondary to fatigue after performing activity. Pt ambulated throughout task with CGA x 1 without the use of AD. Pt performed various BLE exercises with PT (see PT note for specifics) Different color cones placed on the floor where pt matched cones by bending down to stack appropriate cones based on color to increase functional mobility, dynamic standing balance, endurance, and executive functioning to increase (I) with ADLs and IADLs. Pt with no LOB noted when performing activity. Pt required 1 verbal cue to complete task. Sated rest break needed afterwards. Pt ambulated throughout task with CGA x 1 without the use of AD. Pt performed BUE strengthening exercises with red theraband performing 1 set x 10 reps in all available planes of motion to increase BUE strength, endurance, and activity tolerance to increase (I) with ADLs and IADLs. Pt required verbal cues for correct exercises technique. Pt reported no pain while performing activity. Intermittent rest breaks needed secondary to fatigue. Pt performed scavenger swenson activity where various cones where placed around the room in various planes where pt found and retrieved to cones and matched colored cones accordingly to increase functional mobility, activity tolerance, and exe cutive functioning to increase (I) with ADLs and IADLs. Pt required min verbal cues to complete activity. No LOB noted. Education OT Patient Education: Energy conservation, Exercise program, Home exercise program, Modified ADL techniques, Progress toward Goal/Update tx plan, Purpose of tx/functional activities, Rehab process, Safety issues, Transfer techniques Teaching Recipient: Patient, Family Teaching Methods: Discussion Response to Teaching: Reinforcement Needed OT Sampler And Test Preparer Goals Skilled Nursing Goals Acute change in mental status: 0 Inattention: 0 Disorganized thinkin Altered level of consciousness: 0 Eating (QC): 6 Oral Hygiene (QC): 6 Toileting Hygiene (QC): 4 Shower/Bathe Self (QC): 4 Upper Body Dressing (QC): 5 Lower Body Dressing (QC): 4 On/Off Footwear (QC): 5 1=Demonstrate adherence to instructed precautions during ADL tasks. 2=Patient will verbalize/demonstrate understanding of assistive d evices/modifications for ADL. 3=Patient will improve strength/tolerance for activity to enable patient to perform ADL's. OT Education/Plan Problem List/Assessment Assessment: Decreased Activ Tolerance, Decreased Safety Aware, Decreased UE Strength, Impaired Cognition, Impaired Funct Balance, Impaired I ADL's, Impaired Self-Care Skills Discharge Recommendations Plan Pt remained seated in bedside chair with needs/call light in reach with at bedside. Chair alarm in place. Plan/Recommendations: Continue POC Comment Spoke with during session to and educated on safety when returning home. reported that they are currently putting in a custom walk in shower where is putting in built in shower bench, hand held shower head, and grab bars. educated on supervising pt pt when performing ADLs as pt still requires verbal cues for sequencing. Barriers to Progress Cognition, activity tolerance, and endurance Treatment Plan/Plan of Care Treatment,Training & Education: Yes Patient would benefit from OT for education, treatment and training to promote independence in ADL's, mobility, safety and/or upper extremity function for ADL's. Plan of Care: ADL Retraining, Caregiver Training, Cognitive Retraining, Functional Mobility, Group Exercise/Act as Ind, UE Funct Exercise/Act Treatment Duration: Jun 25, 2023 Frequency: At least 5 of 7 days/Wk (IRF) Estimated Hrs Per Day: 1.5 hours per day Agreement: Yes Rehab Potential: Good Ending session, pt remained seated in bedside chair with needs/call light in reach with family at bedside. Chair alarm in place. Time Start Time: 13:00 Stop Time: 13:45 DATE: Jun 23, 2023 Total Time Billed (hr/min): 45 Billed Treatment Time 45 minutes Co-treat 30 minutes with PT FA 2 EX 1 CHAS VILLANUEVA OT Jun 23, 2023 14:52
--- NOTE | 2023-06-23 15:44 | Physical Therapy Daily Note ---
PT Daily Note-Current Subjective Pt seated in bedside chair upon arrival with at bedside. Pt and consented to OT session. Co-treat with PT secondary to decreased endurance, activity tolerance, and the need of a second person for safety to increase (I) with functional tasks and to decrease the burden of care. Pt focusing on functional mobility and standing balance while OT focusing on standing tolerance and cognition. Pain Location: No Pain Reported Section J - Health Conditions 1. Rarely or not at all 2. Occasionally 3. Frequently 4. Almost constantly 8. Unable to answer Pain Effect on Sleep: 1 Pain Interference with Therapy: 1 Pain Interference w/Day-to-Day: 1 Mental Status Patient Orientation: Person, Place, Situation Transfers SCALE: Activities may be completed with or without assistive devices. 3-Bbpxzohver-hwnyfjp completes the activity by him/herself with no assistance from a helper. 5-Set-up or Clean-up Assistance-helper sets up or cleans up; patient completes activity. [place] assists only prior to or following the activity. 4-Supervision or Touching Assistance-helper provides verbal cues and/or touching/steadying and/or contact guard assistance as patient completes activity. Assistance may be provided throughout the activity or intermittently. 3-Partial/Moderate Assistance-helper does LESS THAN HALF the effort. [place] lifts, holds or supports trunk or limbs, but provides less than half the effort. 2-Substantial/Maximal Assistance-helper does MORE THAN HALF the effort. [place] lifts or holds trunk or limbs and provides more than half the effort. 9-Bcmtqmaue-wmtcxz does ALL the effort. Patient does none of the effort to complete the activity. Or, the assistance of 2 or more helpers is required for the patient to complete the activity. If activity was not attempted, code reason: 7-Patient Refused. 9-Not Applicable-not attempted and the patient did not perform the activity before the current illness, exacerbation or injury. 10-Not Attempted due to Environmental Limitations-(lack of equipment, weather restraints, etc.). 88-Not Attempted due to Medical Conditions or Safety Concerns. Sit to Stand (QC): 5 Weight Bearing Right Lower Extremity: Right Full Weight Bearing Left Lower Extremity: Left Full Weight Bearing Gait Training Does the Patient Walk?: Yes Balance Picking up an Object (QC): 4 Exercises Seated Therapy Exercises: Ankle pumps, Long arc quads, Hip flexion, Hip abd/add, Glut set Seated Reps: 15 Treatments Pt performed therapeutic activity where cones were placed in various planes throughout room where pt retrieved cones while following verbal cues to increase activity tolerance, executive functioning skills, balance, visual scanning, and endurance to increase (I) with ADLs and IADLs. Pt required min verbal cues and visual cues to complete task. Pt ambulated Pt reported no pain while performing activity. Seated rest break needed secondary to fatigue after performing activity. Pt ambulated throughout task with CGA x 1 without the use of AD. Pt performed various BLE Seated exercises (see above). Different color cones placed on the floor where pt matched cones by bending down to stack appropriate cones based on color to increase functional mobility, dynamic standing balance, endurance, and executive functioning to increase (I) with ADLs and IADLs. Pt with no LOB noted when performing activity. Pt required 1 verbal cue to complete task. Seated rest break needed afterwards. Pt ambulated throughout task with CGA x 1 without the use of AD. Pt performed BUE exercises with OT (see OT note for specifics). Pt performed scavenger swenson activity where various cones where placed around the room in various planes where pt found and retrieved to cones and matched colored cones accordingly to increase functional mobility, activity tolerance, and executive functioning to increase (I) with ADLs and IADLs. Pt required min verbal cues to complete activity. No LOB noted. Assessment Current Status: Good Progress Pt is improving w/cognition, higher level/multi step processing or sequencing as well as balance during tasks. PT Mcfp Goals Mcfp Goals PT Mcfp Goals Time Frame: Jul 02, 2023 Roll Left & Right (QC): 6 (Pt will be Mod I with bed mobility and transfers. ) Sit to Lying (QC): 6 (Pt will be Mod I with bed mobility and transfers. ) Lying-Sitting on Side/Bed(QC): 6 (Pt will be Mod I with bed mobility and transfers. ) Sit to Stand (QC): 6 (Pt will be Mod I with bed mobility and transfers. ) Chair/Wdy-iu-Wgkhy Xfer(QC): 6 (Pt will be Mod I with bed mobility and transfers. ) Toilet Transfer (QC): 6 (Pt will be Mod I with bed mobility and transfers. ) Car Transfer (QC): 6 (Pt will be Mod I with bed mobility and transfers. ) Does the Patient Walk: Yes Walk 10 feet (QC): 4 (Pt will be SBA for walking and stairs to safely return home with spouse. ) Walk 50ft with 2 Turns (QC): 4 (Pt will be SBA for walking and stairs to safely return home with spouse. ) Walk 150 ft (QC): 4 (Pt will be SBA for walking and stairs to safely return home with spouse. ) Walking 10ft on Uneven Surface: 4 (Pt will be SBA for walking and stairs to safely return home with spouse. ) 1 Step (curb) (QC): 4 (Pt will be SBA for walking and stairs to safely return home with spouse. ) 4 Steps (QC): 4 (Pt will be SBA for walking and stairs to safely return home with spouse. ) 12 Steps (QC): 4 (Pt will be SBA for walking and stairs to safely return home with spouse. ) Picking up an Object (QC): 4 (Pt will be SBA for walking and stairs to safely return home with spouse. ) Does the Pt use WC or Scooter?: No Wheel 50 feet with 2 turns (QC: 9 Type: N/A Wheel 150 feet: 9 Type: N/A PT Plan Problem List Problem List: Safety Treatment/Plan Treatment Plan: Continue Plan of Care Treatment Plan: Bed Mobility, Concurrent Therapy, Education, Functional Activity Jemal, Functional Strength, Group Therapy, Gait, Safety, Therapeutic Exercise, Transfers Treatment Duration: Jul 02, 2023 Frequency: At least 5 of 7 days/Wk (IRF) Estimated Hrs Per Day: 1.5 hours per day Patient and/or Family Agrees t: Yes Safety Risks/Education Patient Education: Safety Issues Teaching Recipient: Patient, Significant Other Teaching Methods: Discussion Response to Teaching: Verbalize Understanding Time Time In: 1300 Time Out: 1330 DATE: Jun 23, 2023 Total Billed Treatment Time: 30 Total Billed Treatment Co-treat w/OT for 30m 1, FA x2 (30m) JUNE VILLALTA SENIOR SCIENCE CONSULTANT Jun 23, 2023 15:44
[2023-06-23 18:00] VITALS: BP 118/69
[2023-06-23] MEDS: warFARin 5 MG (COUMADIN) TAB PO SCH (18:24)
[2023-06-23 20:30] VITALS: BP 113/69
[2023-06-23] MEDS: DONEPEZIL 10 MG TABLET PO SCH (20:46)
[2023-06-23] MEDS: CITALOPRAM 20 MG TABLET PO SCH (20:46)
--- NOTE | 2023-06-24 05:04 | PM&R Progress Note ---
Subjective HPI/CC On Admission Date Seen by Provider: Jun 24, 2023 Time Seen by Provider: 11:00 Subjective/Events-last exam 06/24/2023: Patient doing well No pain is reported No falls at bedside 06/23/2023: Patient doing well INR good so we will restart warfarin at bedside Cough is improved 06/22/2023: Patient doing better Bladder schedule is working well for him at bedside No major concerns INR 3.4 we will hold Coumadin today 06/21/2023: No major issues No pain Incontinence periodically Bladder emptying schedule will be implemented 06/20/2023: Patient doing well Getting more alert today Reviewed meds and labs No falls at bedside 06/19/2023: Improved overall at bedside Appears more improved Very weak Incontinence is a new issue and likely related to COVID Review of Systems General: Fatigue, Malaise Objective Exam Vital Signs Vital Signs Date Time Temp Pulse Resp B/P (MAP) Pulse Ox O2 Delivery O2 Flow Rate FiO2 06/24/23 17:58 88 18 122/76 (91) 06/24/23 08:10 Room Air 06/24/23 07:14 35.9 95 Capillary Refill : General Appearance: No Apparent Distress, WD/WN, Chronically ill HEENT: PERRL/EOMI, Normal ENT Inspection, Pharynx Normal Neck: Full Range of Motion, Normal Inspection, Non Tender, Supple, Carotid Bruit Respiratory: Chest Non Tender, Lungs Clear, No Accessory Muscle Use, No Respiratory Distress, Decreased Breath Sounds Cardiovascular: Regular Rate, Rhythm, No Edema, No Gallop, No JVD, No Murmur, Normal Peripheral Pulses, Irregularly Irregular Gastrointestinal: Normal Bowel Sounds, No Organomegaly, No Pulsatile Mass, Non Tender, Soft Back: Normal Inspection, No CVA Tenderness, No Vertebral Tenderness Extremity: Normal Capillary Refill, Normal Inspection, Normal Range of Motion, Non Tender, No Calf Tenderness, No Pedal Edema Neurologic/Psychiatric: Alert, Oriented x3, No Motor/Sensory Deficits, 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 FIM Transfers Therapy Code Descriptions/Definitions Functional [place] Measure: 0=Not Assessed/NA 4=Minimal Assistance 1=Total Assistance 5=Supervision or Setup 2=Maximal Assistance 6=Modified [place] 3=Moderate Assistance 7=Complete IndependenceSCALE: Activities may be completed with or without assistive devices. 2-Rbdjuqxrns-nwefqgt completes the activity by him/herself with no assistance from a helper. 5-Set-up or Clean-up Assistance-helper sets up or cleans up; patient completes activity. [place] assists only prior to or following the activity. 4-Supervision or Touching Assistance-helper provides verbal cues and/or touching /steadying and/or contact guard assistance as patient completes activity. Assistance may be provided throughout the activity or intermittently. 3-Partial/Moderate Assistance-helper does LESS THAN HALF the effort. [place] lifts, holds or supports trunk or limbs, but provides less than half the effort. 2-Substantial/Maximal Assistance-helper does MORE THAN HALF the effort. [place] lifts or holds trunk or limbs and provides more than half the effort. 4-Iktcdfnsa-qcuhpl does ALL the effort. Patient does none of the effort to complete the activity. Or, the assistance of 2 or more helpers is required for the patient to complete the activity. If activity was not attempted, code reason: 7-Patient Refused. 9-Not Applicable-not attempted and the patient did not perform the activity before the current illness, exacerbation or injury. 10-Not Attempted due to Environmental Limitations-(lack of equipment, weather restraints, etc.). 88-Not Attempted due to Medical Conditions or Safety Concerns. Roll Left to Right (QC): 4 (SBA ) Sit to Lying (QC): 4 (SBA ) Sit to Stand (QC): 5 Chair/Jyy-mg-Tzcoq Xfer(QC): 4 Car Transfer (QC): 88 (Pt isolated to room secondary to covid ) Gait Training Does the Patient Walk?: Yes Distance: 15' x2 Walk 10 feet (QC): 4 Walk 50 ft with 2 Turns(QC): 4 Walk 150 ft (QC): 88 (Proximal weakness ) Walking 10ft/uneven surface-QC: 88 (Proximal weakness; balance/safety ) Gait Persons Needed: 1 Gait Assistive Device: Handheld Assist Wheelchair Training Does the Pt Use a Wheelchair?: No Wheel 50 ft with 2 turns (QC): 9 Wheel 150 ft (QC): 9 Type of Wheelchair: N/A Stair Training #of Steps: 1 1 Step (curb) (QC): 1 (Min/Mod A x 2 for balance/safety ) 4 Steps (QC): 88 (Balance and safety ) 12 Steps (QC): 88 (Balance and safety ) Balance Picking up an Object (QC): 4 ADL-Treatment Eating (QC): 5 (set-up A to open packages and containers) Oral Hygiene (QC): 4 (Pt performed oral care standing at sink. Pt required verbal cues for sequencing. Pt performed shaving seated in WC. Verbal cues needed for thoroughness and sequencing. ) Bathing Location: L Arm, R Arm, L Upper Leg, R Upper Leg, L Lower Leg (including foot), R Lower Leg (including foot), Chest, Abdomen, Buttocks, Perineal Area Shower/Bathe Self (QC): 4 (SBA for bathing seated on built in shower bench in walk in shower with pt utilizing GB's and hand held shower head. Pt requires verbal cues for thoroughness to wash all areas as well as to dry off all areas. ) Upper Body Dressing (QC): 4 (SBA for UBD with pt performed while seated in bedside chair with pt requiring verbal cues. ) Lower Body Dressing (QC): 4 (SBA for LBD with pt donning/doffing pants and brief while seated in bedisde chair and performing sit<>stand to pull pants over hips. Verbal cues needed for sequencing. ) On/Off Footwear (QC): 5 (Set-up A for donning/doffing socks seated in bedisde chair) Toileting Hygiene (QC): 3 (Partial/mod A for thoroughness with clean gely area and buttocks; pt able to manage clothing. ) Assessment/Plan Assessment and Plan Assess & Plan/Chief Complaint Assessment: Myopathy COVID-19 Altered mental status Dementia Pacemaker Valve replacement Warfarin for anticoagulation Chronic kidney disease Gout Dehydration on admit Cardiomyopathy on Entresto Plan: PT and OT Home meds Monitor closely 06/19/2023: Monitor O2 Urinary incontinence management 06/20/2023: Supportive care Incontinence care 06/21/2023: Monitor closely Bladder emptying schedule 06/22/2023: Supportive care Hold Coumadin today 06/23/2023: Supportive care we will continue Monitor closely 06/24/2023: Supportive care Monitor closely (1) Myopathy (2) COVID-19 (3) Altered mental status DEE KAYE DO Jun 24, 2023 05:04
[2023-06-24 07:14] VITALS: BP 110/66
[2023-06-24] MEDS: carvediloL 3.125 MG TABLET PO SCH ×2 (07:57→18:05)
[2023-06-24] MEDS: SACUBITRIL/VALSARTAN 24/26 MG TABLET PO SCH ×2 (07:57→21:00)
[2023-06-24] MEDS: ALLOPURINOL 100 MG TABLET PO SCH ×2 (08:04→20:57)
[2023-06-24] MEDS: DOCUSATE SODIUM 100 MG CAPSULE PO SCH ×2 (08:04→21:00)
[2023-06-24] MEDS: MEXILETINE 150 MG CAPSULE PO SCH ×2 (08:04→20:58)
[2023-06-24] MEDS: SENNA W/DOCUSATE TABLET PO SCH ×2 (08:04→21:00)
[2023-06-24] MEDS: SPIRONOLACTONE 25 MG TABLET PO SCH (08:09)
--- NOTE | 2023-06-24 11:12 | Physical Therapy Daily Note ---
PT Daily Note-Current Subjective Pt reports he is doing well and is agreeable to PT. Pt denies pain Pain Numeric Pain Scale: 0-No Pain Location: No Pain Reported Section J - Health Conditions 1. Rarely or not at all 2. Occasionally 3. Frequently 4. Almost constantly 8. Unable to answer Pain Effect on Sleep: 1 Pain Interference with Therapy: 1 Pain Interference w/Day-to-Day: 1 Transfers SCALE: Activities may be completed with or without assistive devices. 6-Ertkzbtyxh-vfscxde completes the activity by him/herself with no assistance from a helper. 5-Set-up or Clean-up Assistance-helper sets up or cleans up; patient completes activity. [place] assists only prior to or following the activity. 4-Supervision or Touching Assistance-helper provides verbal cues and/or touching/steadying and/or contact guard assistance as patient completes activity. Assistance may be provided throughout the activity or intermittently. 3-Partial/Moderate Assistance-helper does LESS THAN HALF the effort. [place] lifts, holds or supports trunk or limbs, but provides less than half the effort. 2-Substantial/Maximal Assistance-helper does MORE THAN HALF the effort. [place] lifts or holds trunk or limbs and provides more than half the effort. 0-Ewfwkbqag-aaknuv does ALL the effort. Patient does none of the effort to complete the activity. Or, the assistance of 2 or more helpers is required for the patient to complete the activity. If activity was not attempted, code reason: 7-Patient Refused. 9-Not Applicable-not attempted and the patient did not perform the activity before the current illness, exacerbation or injury. 10-Not Attempted due to Environmental Limitations-(lack of equipment, weather restraints, etc.). 88-Not Attempted due to Medical Conditions or Safety Concerns. Sit to Stand (QC): 4 Weight Bearing Right Lower Extremity: Right Full Weight Bearing Left Lower Extremity: Left Full Weight Bearing Gait Training Does the Patient Walk?: Yes Distance: 240ft x 2 Walk 10 feet (QC): 4 Walk 50 ft with 2 Turns(QC): 4 Walk 150 ft (QC): 4 Gait Persons Needed: 1 Gait Assistive Device: None Wheelchair Training Does the Pt Use a Wheelchair?: No Wheel 50 ft with 2 turns (QC): 9 Wheel 150 ft (QC): 9 Type of Wheelchair: N/A Treatments Pt completed seated B LE Ther Ex x 15 reps each with the red Tband. Pt completed functional transfers with SBA.Pt ambulated 240ft x 2 with no AD and CGA. After treatment session, pt sitting up in the recliner with call light in reach, present, and all needs met. Assessment Current Status: Good Progress Pt tolerated PT well with good effort. Pt requires increased time to process and complete all tasks throughout treatment session. PT Short Term Goals Short Term Goals Time Frame: Jun 24, 2023 PT Half-Way Goals Jewel Sawyer Goals PT Half-Way Goals Time Frame: Jul 02, 2023 Roll Left & Right (QC): 6 (Pt will be Mod I with bed mobility and transfers. ) Sit to Lying (QC): 6 (Pt will be Mod I with bed mobility and transfers. ) Lying-Sitting on Side/Bed(QC): 6 (Pt will be Mod I with bed mobility and transfers. ) Sit to Stand (QC): 6 (Pt will be Mod I with bed mobility and transfers. ) Chair/Ftb-ze-Pawqh Xfer(QC): 6 (Pt will be Mod I with bed mobility and transfers. ) Toilet Transfer (QC): 6 (Pt will be Mod I with bed mobility and transfers. ) Car Transfer (QC): 6 (Pt will be Mod I with bed mobility and transfers. ) Does the Patient Walk: Yes Walk 10 feet (QC): 4 (Pt will be SBA for walking and stairs to safely return home with spouse. ) Walk 50ft with 2 Turns (QC): 4 (Pt will be SBA for walking and stairs to safely return home with spouse. ) Walk 150 ft (QC): 4 (Pt will be SBA for walking and stairs to safely return home with spouse. ) Walking 10ft on Uneven Surface: 4 (Pt will be SBA for walking and stairs to safely return home with spouse. ) 1 Step (curb) (QC): 4 (Pt will be SBA for walking and stairs to safely return home with spouse. ) 4 Steps (QC): 4 (Pt will be SBA for walking and stairs to safely return home with spouse. ) 12 Steps (QC): 4 (Pt will be SBA for walking and stairs to safely return home with spouse. ) Picking up an Object (QC): 4 (Pt will be SBA for walking and stairs to safely return home with spouse. ) Does the Pt use WC or Scooter?: No Wheel 50 feet with 2 turns (QC: 9 Type: N/A Wheel 150 feet: 9 Type: N/A PT Plan Problem List Problem List: Activity Tolerance, Functional Strength, Safety, Balance, Gait, Transfer, Bed Mobility, ROM Treatment/Plan Treatment Plan: Continue Plan of Care Treatment Plan: Bed Mobility, Concurrent Therapy, Education, Functional Activity Jemal, Functional Strength, Group Therapy, Gait, Safety, Therapeutic Exercise, Transfers Treatment Duration: Jul 02, 2023 Frequency: At least 5 of 7 days/Wk (IRF) Estimated Hrs Per Day: 1.5 hours per day Patient and/or Family Agrees t: Yes Safety Risks/Education Patient Education: Gait Training, Transfer Techniques, Correct Positioning, Safety Issues Teaching Recipient: Patient, Significant Other Teaching Methods: Demonstration, Discussion Response to Teaching: Verbalize Understanding, Return Demonstration, Reinforcement Needed Discharge Recommendations Therapy Discharge Recommendati: Home & Family, Post Acute PT Discharge Status/Home Program Cont per POC Barriers to Progress Weakness/endurance Target Placement home with spouse Time Time In: 1100 Time Out: 1200 DATE: Jun 24, 2023 Total Billed Treatment Time: 60 Total Billed Treatment 60 min 1 visit EX x 2 GT x 2 ALEC CEJA PT Jun 24, 2023 11:12
--- NOTE | 2023-06-24 13:25 | Occupational Ther Daily Note ---
OT Current Status-Daily Note Subjective Pt seated in bedside chair upon arrival and consented to OT session. Pain Numeric Pain Scale: 0-No Pain Location: No Pain Reported ADL-Treatment Therapy Code Descriptions/Definitions Functional [place] Measure: 0=Not Assessed/NA 4=Minimal Assistance 1=Total Assistance 5=Supervision or Setup 2=Maximal Assistance 6=Modified [place] 3=Moderate Assistance 7=Complete IndependenceSCALE: Activities may be completed with or without assistive devices. 7-Ysomhxxzxi-otfrusr completes the activity by him/herself with no assistance from a helper. 5-Set-up or Clean-up Assistance-helper sets up or cleans up; patient completes activity. [place] assists only prior to or following the activity. 4-Supervision or Touching Assistance-helper provides verbal cues and/or touching/steadying and/or contact guard assistance as patient completes activity. Assistance may be provided throughout the activity or intermittently. 3-Partial/Moderate Assistance-helper does LESS THAN HALF the effort. [place] lifts, holds or supports trunk or limbs, but provides less than half the effort. 2-Substantial/Maximal Assistance-helper does MORE THAN HALF the effort. [place] lifts or holds trunk or limbs and provides more than half the effort. 0-Vrfbsfwfe-jaebgz does ALL the effort. Patient does none of the effort to complete the activity. Or, the assistance of 2 or more helpers is required for the patient to complete the activity. If activity was not attempted, code reason: 7-Patient Refused. 9-Not Applicable-not attempted and the patient did not perform the activity before the current illness, exacerbation or injury. 10-Not Attempted due to Environmental Limitations-(lack of equipment, weather restraints, etc.). 88-Not Attempted due to Medical Conditions or Safety Concerns. Oral Hygiene (QC): 4 (SBA for oral care standing at sink with pt requiring verbal cues for thoroughness) Bathing Location: L Arm, R Arm, L Upper Leg, R Upper Leg, L Lower Leg (including foot), R Lower Leg (including foot), Chest, Abdomen, Buttocks, Perineal Area Shower/Bathe Self (QC): 4 (SBA for bathing with pt requring verbal cues for thoroughness and sequencing) Upper Body Dressing (QC): 4 (SBA for UBD with pt using visual cue card for sequencing task. ) Lower Body Dressing (QC): 4 (SBA for LBD with pt requiring the (A) from a visual cue card to complete task) On/Off Footwear: 4 (SBA for donning/doffing socks utilizing visual cue card) While pt performed ADL tasks, therapist provided a visual cue card to assist in sequencing and (I) with performing ADLs. Pt required some verbal cues to process the steps of bathing and dressing, as well as safety awareness. 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 2=Patient will verbalize/demonstrate understanding of assistive devices/modifications for ADL. 3=Patient will improve strength/tolerance for activity to enable patient to pe rform ADL's. OT Education/Plan Problem List/Assessment Assessment: Decreased Activ Tolerance, Decreased Safety Aware, Decreased UE Strength, Impaired Cognition, Impaired Funct Balance, Impaired I ADL's, Impaired Self-Care Skills Discharge Recommendations Plan/Recommendations: Continue POC Treatment Plan/Plan of Care Treatment,Training & Education: Yes Patient would benefit from OT for education, treatment and training to promote independence in ADL's, mobility, safety and/or upper extremity function for ADL's. Plan of Care: ADL Retraining, Caregiver Training, Cognitive Retraining, Functional Mobility, Group Exercise/Act as Ind, UE Funct Exercise/Act Treatment Duration: Jun 25, 2023 Frequency: At least 5 of 7 days/Wk (IRF) Estimated Hrs Per Day: 1.5 hours per day Agreement: Yes Rehab Potential: Good Ending session, pt remained seated in bedside chair with needs/call light in reach and chair alarm on. Telesitter in place in room. Time Start Time: 09:10 Stop Time: 09:55 DATE: Jun 24, 2023 Total Time Billed (hr/min): 45 Billed Treatment Time 45 minutes ADL 3 CHAS VILLANUEVA, OT Jun 24, 2023 13:25
--- NOTE | 2023-06-24 13:48 | Occupational Ther Daily Note ---
OT Current Status-Daily Note Subjective Pt alert, sitting in recliner. Pt agrees to therapy. OT/PT co-treat for higher level balance and cognitive tasks for daily functional tasks. PT focusing on B LE strengthening, standing balance while OT focusing on B UE strengthening, functional standing balance and ADLs. Mental Status/Objective Patient Orientation: Person, Place ADL-Treatment Therapy Code Descriptions/Definitions Functional [place] Measure: 0=Not Assessed/NA 4=Minimal Assistance 1=Total Assistance 5=Supervision or Setup 2=Maximal Assistance 6=Modified [place] 3=Moderate Assistance 7=Complete IndependenceSCALE: Activities may be completed with or without assistive devices. 0-Xrrndtbnsw-zgeyekp completes the activity by him/herself with no assistance from a helper. 5-Set-up or Clean-up Assistance-helper sets up or cleans up; patient completes activity. [place] assists only prior to or following the activity. 4-Supervision or Touching Assistance-helper provides verbal cues and/or touching/steadying and/or contact guard assistance as patient completes activity. Assistance may be provided throughout the activity or intermittently. 3-Partial/Moderate Assistance-helper does LESS THAN HALF the effort. [place] lifts, holds or supports trunk or limbs, but provides less than half the effort. 2-Substantial/Maximal Assistance-helper does MORE THAN HALF the effort. [place] lifts or holds trunk or limbs and provides more than half the effort. 7-Xcnnkbwmg-detoer does ALL the effort. Patient does none of the effort to complete the activity. Or, the assistance of 2 or more helpers is required for the patient to complete the activity. If activity was not attempted, code reason: 7-Patient Refused. 9-Not Applicable-not attempted and the patient did not perform the activity before the current illness, exacerbation or injury. 10-Not Attempted due to Environmental Limitations-(lack of equipment, weather restraints, etc.). 88-Not Attempted due to Medical Conditions or Safety Concerns. Oral Hygiene (QC): 4 (Supervision. Pt standing at sink to complete oral care by self.) Other Treatment Pt completed dynamic standing balance task while using dowel lynsey to hit balloon back and forth at varying heights and distances away from body with SBA to CGA, no LOB noted. Pt then completed B UE exercises to increase strength for daily functional tasks. Pt able to mirror hitting back balloon with same hand then using opposite hand correctly 90% of the time. After therapy, pt sitting in recliner with call light/phone in reach. All needs met in room. OT Infant Babysitter Goals Correction Goals Acute change in mental status: 0 Inattention: 0 Disorganized thinkin Altered level of consciousness: 0 Eating (QC): 6 Oral Hygiene (QC): 6 Toileting Hygiene (QC): 4 Shower/Bathe Self (QC): 4 Upper Body Dressing (QC): 5 Lower Body Dressing (QC): 4 On/Off Footwear (QC): 5 1=Demonstrate adherence to instructed precautions during ADL tasks. 2=Patient will verbalize/demonstrate understanding of assistive devices/modifications for ADL. 3=Patient will improve strength/tolerance for activity to enable patient to perform ADL's. OT Education/Plan Problem List/Assessment Assessment: Decreased Activ Tolerance, Decreased UE Strength, Impaired Cognition, Impaired Funct Balance Discharge Recommendations Plan/Recommendations: Continue POC Treatment Plan/Plan of Care Patient would benefit from OT for education, treatment and training to promote independence in ADL's, mobility, safety and/or upper extremity function for ADL's. Plan of Care: ADL Retraining, Caregiver Training, Cognitive Retraining, Functional Mobility, Group Exercise/Act as Ind, UE Funct Exercise/Act Treatment Duration: Jun 25, 2023 Frequency: At least 5 of 7 days/Wk (IRF) Estimated Hrs Per Day: 1.5 hours per day Agreement: Yes Rehab Potential: Good Time Start Time: 13:00 Stop Time: 13:45 DATE: Jun 24, 2023 Total Time Billed (hr/min): 45 Billed Treatment Time 1 visit-ADL 1 (10 min) EX 2 (35 min) co-treat with PT [id number], individual [id number] ALYSSA ACEVEDO Jun 24, 2023 13:48
--- NOTE | 2023-06-24 15:51 | Physical Therapy Daily Note ---
PT Daily Note-Current Subjective Pt alert, sitting in recliner. Pt agrees to therapy. OT/PT co-treat for higher level balance and cognitive tasks for daily functional tasks. PT focusing on B LE strengthening, standing balance while OT focusing on B UE strengthening, functional standing balance and ADLs. Pain Location: No Pain Reported Section J - Health Conditions 1. Rarely or not at all 2. Occasionally 3. Frequently 4. Almost constantly 8. Unable to answer Pain Effect on Sleep: 1 Pain Interference with Therapy: 1 Pain Interference w/Day-to-Day: 1 Mental Status Patient Orientation: Person, Place, Situation Transfers SCALE: Activities may be completed with or without assistive devices. 2-Qfrzshoomf-glovwni completes the activity by him/herself with no assistance from a helper. 5-Set-up or Clean-up Assistance-helper sets up or cleans up; patient completes activity. [place] assists only prior to or following the activity. 4-Supervision or Touching Assistance-helper provides verbal cues and/or touching/steadying and/or contact guard assistance as patient completes activity. Assistance may be provided throughout the activity or intermittently. 3-Partial/Moderate Assistance-helper does LESS THAN HALF the effort. [place] lifts, holds or supports trunk or limbs, but provides less than half the effort. 2-Substantial/Maximal Assistance-helper does MORE THAN HALF the effort. [place] lifts or holds trunk or limbs and provides more than half the effort. 7-Gfsiardgk-jojpnq does ALL the effort. Patient does none of the effort to complete the activity. Or, the assistance of 2 or more helpers is required for the patient to complete the activity. If activity was not attempted, code reason: 7-Patient Refused. 9-Not Applicable-not attempted and the patient did not perform the activity before the current illness, exacerbation or injury. 10-Not Attempted due to Environmental Limitations-(lack of equipment, weather restraints, etc.). 88-Not Attempted due to Medical Conditions or Safety Concerns. Sit to Stand (QC): 5 Weight Bearing Right Lower Extremity: Right Full Weight Bearing Left Lower Extremity: Left Full Weight Bearing Treatments Pt completed dynamic standing balance task while using dowel lynsey to hit balloon back and forth at varying heights and distances away from body with SBA to CGA, no LOB noted. Pt completes Seated B LE Ex then LAUNDRY AIDE departs as EVANGELISTA continues to work w/Pt. Assessment Current Status: Good Progress Pt is gaining strength and balance as well improving on processing as well. PT Short Term Goals Short Term Goals Time Frame: Jun 24, 2023 PT Alf Goals Alf Goals PT Alf Goals Time Frame: Jul 02, 2023 Roll Left & Right (QC): 6 (Pt will be Mod I with bed mobility and transfers. ) Sit to Lying (QC): 6 (Pt will be Mod I with bed mobility and transfers. ) Lying-Sitting on Side/Bed(QC): 6 (Pt will be Mod I with bed mobility and transfers. ) Sit to Stand (QC): 6 (Pt will be Mod I with bed mobility and transfers. ) Chair/Nuk-xn-Xknju Xfer(QC): 6 (Pt will be Mod I with bed mobility and transfers. ) Toilet Transfer (QC): 6 (Pt will be Mod I with bed mobility and transfers. ) Car Transfer (QC): 6 (Pt will be Mod I with bed mobility and transfers. ) Does the Patient Walk: Yes Walk 10 feet (QC): 4 (Pt will be SBA for walking and stairs to safely return home with spouse. ) Walk 50ft with 2 Turns (QC): 4 (Pt will be SBA for walking and stairs to safely return home with spouse. ) Walk 150 ft (QC): 4 (Pt will be SBA for walking and stairs to safely return home with spouse. ) Walking 10ft on Uneven Surface: 4 (Pt will be SBA for walking and stairs to safely return home with spouse. ) 1 Step (curb) (QC): 4 (Pt will be SBA for walking and stairs to safely return home with spouse. ) 4 Steps (QC): 4 (Pt will be SBA for walking and stairs to safely return home with spouse. ) 12 Steps (QC): 4 (Pt will be SBA for walking and stairs to safely return home with spouse. ) Picking up an Object (QC): 4 (Pt will be SBA for walking and stairs to safely return home with spouse. ) Does the Pt use WC or Scooter?: No Wheel 50 feet with 2 turns (QC: 9 Type: N/A Wheel 150 feet: 9 Type: N/A PT Plan Problem List Problem List: Safety Treatment/Plan Treatment Plan: Continue Plan of Care Treatment Plan: Bed Mobility, Concurrent Therapy, Education, Functional Activity Jemal, Functional Strength, Group Therapy, Gait, Safety, Therapeutic Exercise, Transfers Treatment Duration: Jul 02, 2023 Frequency: At least 5 of 7 days/Wk (IRF) Estimated Hrs Per Day: 1.5 hours per day Patient and/or Family Agrees t: Yes Safety Risks/Education Patient Education: Correct Positioning, Safety Issues Teaching Recipient: Patient, Significant Other Response to Teaching: Verbalize Understanding, Reinforcement Needed Time Time In: 1300 Time Out: 1330 DATE: Jun 24, 2023 Total Billed Treatment Time: 30 Total Billed Treatment Co-treat w/OT for 30m (3062-9033) 1, Ex (15m) & FA (15m) JUNE VILLALTA PTA Jun 24, 2023 15:51
--- NOTE | 2023-06-24 16:06 | Occupational Ther Daily Note ---
OT Current Status-Daily Note Subjective Pt consented to OT session this A.M. CO-treatment with PT secondary to decreased endurance, activity tolerance, and the need of a second person for safety to increase (I) with functional tasks and to decrease the burden of care. PT focusing on functional mobility and gait while OT focusing on ADLs, assisting w ith standing, and strengthening BUE's. Pain Numeric Pain Scale: 0-No Pain Location: No Pain Reported Comment: Pt continues to only complain of fatigue/being tired Mental Status/Objective Patient Orientation: Person, Place, Time, Situation Attachments: IV ADL-Treatment Therapy Code Descriptions/Definitions Functional [place] Measure: 0=Not Assessed/NA 4=Minimal Assistance 1=Total Assistance 5=Supervision or Setup 2=Maximal Assistance 6=Modified [place] 3=Moderate Assistance 7=Complete IndependenceSCALE: Activities may be completed with or without assistive devices. 8-Jynpljzhhc-ehhjvum completes the activity by him/herself with no assistance from a helper. 5-Set-up or Clean-up Assistance-helper sets up or cleans up; patient completes activity. [place] assists only prior to or following the activity. 4-Supervision or Touching Assistance-helper provides verbal cues and/or touching/steadying and/or contact guard assistance as patient completes activity. Assistance may be provided throughout the activity or intermittently. 3-Partial/Moderate Assistance-helper does LESS THAN HALF the effort. [place] lifts, holds or supports trunk or limbs, but provides less than half the effort. 2-Substantial/Maximal Assistance-helper does MORE THAN HALF the effort. [place] lifts or holds trunk or limbs and provides more than half the effort. 4-Xaynljnyj-relmle does ALL the effort. Patient does none of the effort to complete the activity. Or, the assistance of 2 or more helpers is required for the patient to complete the activity. If activity was not attempted, code reason: 7-Patient Refused. 9-Not Applicable-not attempted and the patient did not perform the activity before the current illness, exacerbation or injury. 10-Not Attempted due to Environmental Limitations-(lack of equipment, weather restraints, etc.). 88-Not Attempted due to Medical Conditions or Safety Concerns. Lower Body Dressing (QC): 4 (SBA for LBD as pt is able to threab BLE's into pants legs while seated in WC; sit<>stand performed with CGA x 1 with pt able to pull pants over hips.) Toileting Hygiene (QC): 4 (SBA for toileting with pt able to manage clothing and clean gely area.) Toilet Transfer (QC): 4 (SPT from WC<>BSC over toilet with SBA x 1 with pt utilizing GB's for steadiness) Other Treatment SPT from bedside chair<>WC performed with CGA x 1 with RW See PT's note for functional mobility tasks performed during session Pt performed ADLs during session (see scores above) Pt performed BUE strengthening activity with green flexbar and 3# dumbbell performing 2 sets x 10 reps in all available planes of motion to increase BUE strength, endurance, and activity tolerance to increase (I) with ADLs and IADLs. Pt required intermittent rest breaks in between sets secondary to fatigue. Pt reported no pain at this time. Education OT Patient Education: Energy conservation, Exercise program, Home exercise program, Instructions to caregiver, Modified ADL techniques, Progress toward Goal/Update tx plan, Purpose of tx/functional activities, Rehab process, Safety issues, Transfer techniques, Use of adapted equipment Teaching Recipient: Patient Teaching Methods: Demonstration, Discussion Response to Teaching: Verbalize Understanding, Return Demonstration OT Intermediate Goals Intermediate Goals Acute change in mental status: 0 Inattention: 0 Disorganized thinkin Altered level of consciousness: 0 Eating (QC): 6 Oral Hygiene (QC): 6 Toileting Hygiene (QC): 4 Shower/Bathe Self (QC): 4 Upper Body Dressing (QC): 5 Lower Body Dressing (QC): 4 On/Off Footwear (QC): 5 1=Demonstrate adherence to instructed precautions during ADL tasks. 2=Patient will verbalize/demonstrate understanding of assistive devices/modifications for ADL. 3=Patient will improve strength/tolerance for activity to enable patient to perform ADL's. OT Education/Plan Problem List/Assessment Assessment: Decreased Activ Tolerance, Decreased UE Strength, Impaired Funct Balance, Impaired I ADL's, Impaired Self-Care Skills Discharge Recommendations Plan/Recommendations: Continue POC Barriers to Progress Fatigue, decreased activity tolerance, decreased endurance Treatment Plan/Plan of Care Treatment,Training & Education: Yes Patient would benefit from OT for education, treatment and training to promote independence in ADL's, mobility, safety and/or upper extremity function for ADL's. Plan of Care: ADL Retraining, Caregiver Training, Cognitive Retraining, Functional Mobility, Group Exercise/Act as Ind, UE Funct Exercise/Act Treatment Duration: Jun 25, 2023 Frequency: At least 5 of 7 days/Wk (IRF) Estimated Hrs Per Day: 1.5 hours per day Agreement: Yes Rehab Potential: Good Ending session, pt remained seated in bedside chair with needs/call light in reach and at bedside. Time Start Time: 10:30 Stop Time: 12:00 DATE: Jun 24, 2023 Total Time Billed (hr/min): 90 Billed Treatment Time 90 minutes Co-treat with PT from (4301 - 1200) ADL 3 EX 3 CHAS VILLANUEVA, OT Jun 24, 2023 16:06
[2023-06-24 17:58] VITALS: BP 122/76
[2023-06-24] MEDS: warFARin 5 MG (COUMADIN) TAB PO SCH (17:59)
[2023-06-24 20:00] VITALS: BP 110/57
[2023-06-24] MEDS: CITALOPRAM 20 MG TABLET PO SCH (20:57)
[2023-06-24] MEDS: DONEPEZIL 10 MG TABLET PO SCH (20:58)
--- NOTE | 2023-06-25 05:10 | PM&R Progress Note ---
Subjective HPI/CC On Admission Date Seen by Provider: Jun 25, 2023 Time Seen by Provider: 12:00 Subjective/Events-last exam 06/25/2023: Out of isolation tonight at midnight Ready for discharge tomorrow Bladder incontinence is improved 06/24/2023: Patient doing well No pain is reported No falls at bedside 06/23/2023: Patient doing well INR good so we will restart warfarin at bedside Cough is improved 06/22/2023: Patient doing better Bladder schedule is working well for him at bedside No major concerns INR 3.4 we will hold Coumadin today 06/21/2023: No major issues No pain Incontinence periodically Bladder emptying schedule will be implemented 06/20/2023: Patient doing well Getting more alert today Reviewed meds and labs No falls at bedside 06/19/2023: Improved overall at bedside Appears more improved Very weak Incontinence is a new issue and likely related to COVID Review of Systems General: Fatigue, Malaise Objective Exam Vital Signs Vital Signs Date Time Temp Pulse Resp B/P (MAP) Pulse Ox O2 Delivery O2 Flow Rate FiO2 06/25/23 09:30 Room Air 06/25/23 07:58 35.8 86 19 120/87 (98) 98 Capillary Refill : General Appearance: No Apparent Distress, WD/WN, Chronically ill HEENT: PERRL/EOMI, Normal ENT Inspection, Pharynx Normal Neck: Full Range of Motion, Normal Inspection, Non Tender, Supple, Carotid Bruit Respiratory: Chest Non Tender, Lungs Clear, No Accessory Muscle Use, No Respiratory Distress, Decreased Breath Sounds Cardiovascular: Regular Rate, Rhythm, No Edema, No Gallop, No JVD, No Murmur, Normal Peripheral Pulses, Irregularly Irregular Gastrointestinal: Normal Bowel Sounds, No Organomegaly, No Pulsatile Mass, Non Tender, Soft Back: Normal Inspection, No CVA Tenderness, No Vertebral Tenderness Extremity: Normal Capillary Refill, Normal Inspection, Normal Range of Motion, Non Tender, No Calf Tenderness, No Pedal Edema Neurologic/Psychiatric: Alert, Oriented x3, No Motor/Sensory Deficits, cream cheese maker II- XII Norm as Tested, Abnormal Gait, Depressed Affect, Motor Weakness (Severe generalized weakness) Skin: Normal Color, Warm/Dry Lymphatic: No Adenopathy Results/Procedures Lab Patient resulted labs reviewed. FIM Transfers Therapy Code Descriptions/Definitions Functional [place] Measure: 0=Not Assessed/NA 4=Minimal Assistance 1=Total Assistance 5=Supervision or Setup 2=Maximal Assistance 6=Modified [place] 3=Moderate Assistance 7=Complete IndependenceSCALE: Activities may be completed with or without assistive devices. 9-Evugodypog-mctjowx completes the activity by him/herself with no assistance from a helper. 5-Set-up or Clean-up Assistance-helper sets up or cleans up; patient completes activity. [place] assists only prior to or following the activity. 4-Supervision or Touching Assistance-helper provides verbal cues and/or touching/steadying and/or contact guard assistance as patient completes activity. Assistance may be provided throughout the activity or intermittently. 3-Partial/Moderate Assistance-helper does LESS THAN HALF the effort. [place] lifts, holds or supports trunk or limbs, but provides less than half the effort. 2-Substantial/Maximal Assistance-helper does MORE THAN HALF the effort. [place] lifts or holds trunk or limbs and provides more than half the effort. 4-Mtgwerkmy-sdrtan does ALL the effort. Patient does none of the effort to complete the activity. Or, the assistance of 2 or more helpers is required for the patient to complete the activity. If activity was not attempted, code reason: 7-Patient Refused. 9-Not Applicable-not attempted and the patient did not perform the activity before the current illness, exacerbation or injury. 10-Not Attempted due to Environmental Limitations-(lack of equipment, weather restraints, etc.). 88-Not Attempted due to Medical Conditions or Safety Concerns. Roll Left to Right (QC): 4 (SBA ) Sit to Lying (QC): 4 (SBA ) Sit to Stand (QC): 5 Chair/Xqr-gc-Ptblv Xfer(QC): 4 Car Transfer (QC): 88 (Pt isolated to room secondary to covid ) Gait Training Does the Patient Walk?: Yes Distance: 240ft x 2 Walk 10 feet (QC): 4 Walk 50 ft with 2 Turns(QC): 4 Walk 150 ft (QC): 4 Walking 10ft/uneven surface-QC: 88 (Proximal weakness; balance/safety ) Gait Persons Needed: 1 Gait Assistive Device: None Wheelchair Training Does the Pt Use a Wheelchair?: No Wheel 50 ft with 2 turns (QC): 9 Wheel 150 ft (QC): 9 Type of Wheelchair: N/A Stair Training #of Steps: 1 1 Step (curb) (QC): 1 (Min/Mod A x 2 for balance/safety ) 4 Steps (QC): 88 (Balance and safety ) 12 Steps (QC): 88 (Balance and safety ) Balance Picking up an Object (QC): 4 ADL-Treatment Eating (QC): 5 (set-up A to open packages and containers) Oral Hygiene (QC): 4 (Supervision. Pt standing at sink to complete oral care by self.) Bathing Location: L Arm, R Arm, L Upper Leg, R Upper Leg, L Lower Leg (including foot), R Lower Leg (including foot), Chest, Abdomen, Buttocks, Perineal Area Shower/Bathe Self (QC): 4 (SBA for bathing with pt requring verbal cues for thoroughness and sequencing) Upper Body Dressing (QC): 4 (SBA for UBD with pt using visual cue card for sequencing task. ) Lower Body Dressing (QC): 4 (SBA for LBD as pt is able to threab BLE's into pants legs while seated in WC; sit<>stand performed with CGA x 1 with pt able to pull pants over hips.) On/Off Footwear (QC): 4 (SBA for donning/doffing socks utilizing visual cue card) Toileting Hygiene (QC): 4 (SBA for toileting with pt able to manage clothing and clean gely area.) Toilet Transfer (QC): 4 (SPT from WC<>BSC over toilet with SBA x 1 with pt utilizing GB's for steadiness) Assessment/Plan Assessment and Plan Assess & Plan/Chief Complaint Assessment: Myopathy COVID-19 Altered mental status Dementia Pacemaker Valve replacement Warfarin for anticoagulation Chronic kidney disease Gout Dehydration on admit Cardiomyopathy on Entresto Plan: PT and OT Home meds Monitor closely 06/19/2023: Monitor O2 Urinary incontinence management 06/20/2023: Supportive care Incontinence care 06/21/2023: Monitor closely Bladder emptying schedule 06/22/2023: Supportive care Hold Coumadin today 06/23/2023: Supportive care we will continue Monitor closely 06/24/2023: Supportive care Monitor closely 06/25/2023: Discharge home tomorrow (1) Myopathy (2) COVID-19 (3) Altered mental status KAYE,DEE DO Jun 25, 2023 05:10
[2023-06-25 06:11] LABS: INR 2.4 (0.8-1.4); PROTHROMBIN TIME PATIENT 26.4 SEC (12.2-14.7)
[2023-06-25 07:58] VITALS: BP 120/87
[2023-06-25] MEDS: FUROSEMIDE 20 MG TABLET PO SCH (08:37)
[2023-06-25] MEDS: ALLOPURINOL 100 MG TABLET PO SCH ×2 (08:37→21:33)
[2023-06-25] MEDS: MEXILETINE 150 MG CAPSULE PO SCH ×2 (08:37→21:33)
[2023-06-25] MEDS: carvediloL 3.125 MG TABLET PO SCH ×2 (08:38→18:04)
[2023-06-25] MEDS: SENNA W/DOCUSATE TABLET PO SCH ×2 (08:38→21:30)
[2023-06-25] MEDS: SACUBITRIL/VALSARTAN 24/26 MG TABLET PO SCH ×2 (08:38→21:30)
[2023-06-25] MEDS: DOCUSATE SODIUM 100 MG CAPSULE PO SCH ×2 (08:38→21:30)
--- NOTE | 2023-06-25 09:50 | Occupational Ther Daily Note ---
OT Current Status-Daily Note Subjective Pt seated in bedside chair upon arrival and consented to OT session. Pain Numeric Pain Scale: 0-No Pain Location: No Pain Reported ADL-Treatment Therapy Code Descriptions/Definitions Functional [place] Measure: 0=Not Assessed/NA 4=Minimal Assistance 1=Total Assistance 5=Supervision or Setup 2=Maximal Assistance 6=Modified [place] 3=Moderate Assistance 7=Complete IndependenceSCALE: Activities may be completed with or without assistive devices. 6-Dgfqagfbfs-ewgvbqv completes the activity by him/herself with no assistance from a helper. 5-Set-up or Clean-up Assistance-helper sets up or cleans up; patient completes activity. [place] assists only prior to or following the activity. 4-Supervision or Touching Assistance-helper provides verbal cues and/or touching/steadying and/or contact guard assistance as patient completes activity. Assistance may be provided throughout the activity or intermittently. 3-Partial/Moderate Assistance-helper does LESS THAN HALF the effort. [place] lifts, holds or supports trunk or limbs, but provides less than half the effort. 2-Substantial/Maximal Assistance-helper does MORE THAN HALF the effort. [place] lifts or holds trunk or limbs and provides more than half the effort. 3-Dscfpjfda-mepcph does ALL the effort. Patient does none of the effort to complete the activity. Or, the assistance of 2 or more helpers is required for the patient to complete the activity. If activity was not attempted, code reason: 7-Patient Refused. 9-Not Applicable-not attempted and the patient did not perform the activity before the current illness, exacerbation or injury. 10-Not Attempted due to Environmental Limitations-(lack of equipment, weather restraints, etc.). 88-Not Attempted due to Medical Conditions or Safety Concerns. Eating (QC): 5 (Set-up A for feeding ) Oral Hygiene (QC): 4 (SBA for oral care standing at sink with pt requiring verbal cues for sequencing) Bathing Location: L Arm, R Arm, L Upper Leg, R Upper Leg, L Lower Leg (including foot), R Lower Leg (including foot), Chest, Abdomen, Buttocks, Perineal Area Shower/Bathe Self (QC): 4 (SBA for bathing seated on built in shower chair in walk in shower with pt utilizing GB's and hand held shower head. Pt utilized visual cue card to sequence through bathing.) Upper Body Dressing (QC): 4 (SBA for UBD with pt retrieving shirt from cabinet, but required verbal cues for donning shirt seated in WC) Lower Body Dressing (QC): 4 (SBA for LBD with pt requiring verbal cues fro safety when donning/doffing brief and pants with pt trying to step into pants/brief while standing. Verbal cues needed with pt threading the wrong leg into pants leg. ) On/Off Footwear: 5 (Set-up A for donning/doffing socks seated in WC) Toileting Hygiene (QC): 4 (SBA for throughness and verbal cues needed for managing clothes and cleaning gely area/buttocks) Toilet Transfer (QC): 4 (SBA for toilet t/f with pt utilizing GB's for safety) educated on pt needing verbal cues throughout ADLs for thoroughness and sequencing. educated on the use of a visual cue card with verbalizing understanding. Education OT Patient Education: Energy conservation, Exercise program, Home exercise program, Instructions to caregiver, Modified ADL techniques, Progress toward Goal/Update tx plan, Purpose of tx/functional activities, Rehab process, Safety issues, Transfer techniques Teaching Recipient: Patient, Family Teaching Methods: Demonstration, Handout, Discussion Response to Teaching: Verbalize Understanding, Return Demonstration, Reinforcement Needed BIMS CAM BIMS IRF PHIL BIMS: IRF PHIL BIMS Response (Comments) Value Repitition of Three Words Three 3 Recalls Socks Yes, No Cue Required 2 Recalls Blue Yes, No Cue Required 2 Recalls Bed Yes, No Cue Required 2 Year Missed by 5 Yrs/No Answer 0 Month Accurate Within 5 Days 2 Day Incorrect or No Answer 0 Total 11 CAM Mental Status Change/Baseline: 0 Inattention: 0 Disorganized thinkin Altered level of consciousness: 0 OT Correction Goals Aviation Engineer Goals Acute change in mental status: 0 Inattention: 0 Disorganized thinkin Altered level of consciousness: 0 Eating (QC): 6 (Not met) Oral Hygiene (QC): 6 (Not met) Toileting Hygiene (QC): 4 (Met) Shower/Bathe Self (QC): 4 (Met) Upper Body Dressing (QC): 5 (Not met) Lower Body Dressing (QC): 4 (Met) On/Off Footwear (QC): 5 (Met) 1=Demonstrate adherence to instructed precautions during ADL tasks. 2=Patient will verbalize/demonstrate understanding of assistive devices/mod ifications for ADL. 3=Patient will improve strength/tolerance for activity to enable patient to perform ADL's. OT Education/Plan Problem List/Assessment Assessment: Decreased Activ Tolerance, Decreased Safety Aware, Decreased UE Strength, Impaired Cognition, Impaired Funct Balance, Impaired I ADL's, Impaired Self-Care Skills Discharge Recommendations Plan/Recommendations: Continue POC Comment educated on where to order shower chair to ensure safety when performing ADLs after returning to the home environment. Barriers to Progress Decreased cognition/safety awareness Target Placement Home with family and 28/04 supervision for safety Treatment Plan/Plan of Care Treatment,Training & Education: Yes Patient would benefit from OT for education, treatment and training to promote independence in ADL's, mobility, safety and/or upper extremity function for ADL's. Plan of Care: ADL Retraining, Caregiver Training, Cognitive Retraining, Functional Mobility, Group Exercise/Act as Ind, UE Funct Exercise/Act Comment Pt anticipated to D/C home with , 06/26/23, where pt will be receive HHOT. Treatment Duration: Jun 25, 2023 Frequency: At least 5 of 7 days/Wk (IRF) Estimated Hrs Per Day: 1.5 hours per day Agreement: Yes Rehab Potential: Good Ending session, pt remained seated in bedside chair with needs/call light in reach and chair alarm set. at bedside. Time Start Time: 09:15 Stop Time: 10:00 DATE: Jun 25, 2023 Total Time Billed (hr/min): 45 Billed Treatment Time 45 minutes ADL 3 CHAS VILLANUEVA OT Jun 25, 2023 09:50
--- NOTE | 2023-06-25 10:14 | Physical Therapy Daily Note ---
PT Daily Note-Current Subjective Pt reports he is doing well today and is agreeable to PT. Denies pain. Ready to d/c tomorrow (06/26/23) Pain Numeric Pain Scale: 0-No Pain Location: No Pain Reported Section J - Health Conditions 1. Rarely or not at all 2. Occasionally 3. Frequently 4. Almost constantly 8. Unable to answer Pain Effect on Sleep: 1 Pain Interference with Therapy: 1 Pain Interference w/Day-to-Day: 1 Transfers SCALE: Activities may be completed with or without assistive devices. 0-Jkekvhltnk-kcrfmrb completes the activity by him/herself with no assistance from a helper. 5-Set-up or Clean-up Assistance-helper sets up or cleans up; patient completes activity. [place] assists only prior to or following the activity. 4-Supervision or Touching Assistance-helper provides verbal cues and/or touchin g/steadying and/or contact guard assistance as patient completes activity. Assistance may be provided throughout the activity or intermittently. 3-Partial/Moderate Assistance-helper does LESS THAN HALF the effort. [place] lifts, holds or supports trunk or limbs, but provides less than half the effort. 2-Substantial/Maximal Assistance-helper does MORE THAN HALF the effort. [place] lifts or holds trunk or limbs and provides more than half the effort. 4-Fknnhdknr-kamceo does ALL the effort. Patient does none of the effort to complete the activity. Or, the assistance of 2 or more helpers is required for the patient to complete the activity. If activity was not attempted, code reason: 7-Patient Refused. 9-Not Applicable-not attempted and the patient did not perform the activity before the current illness, exacerbation or injury. 10-Not Attempted due to Environmental Limitations-(lack of equipment, weather restraints, etc.). 88-Not Attempted due to Medical Conditions or Safety Concerns. Roll Left & Right (QC): 6 Sit to Lying (QC): 6 Lying to Sitting/Side of Bed(Q: 6 Sit to Stand (QC): 6 Chair/Xuj-kw-Htvjh Xfer(QC): 6 Toilet Transfer (QC): 6 Car Transfer (QC): 6 Weight Bearing Right Lower Extremity: Right Full Weight Bearing Left Lower Extremity: Left Full Weight Bearing Gait Training Does the Patient Walk?: Yes Distance: 240ft Walk 10 feet (QC): 4 Walk 50 ft with 2 Turns(QC): 4 Walk 150 ft (QC): 4 Walking 10ft/uneven surface-QC: 4 Gait Persons Needed: 1 Gait Assistive Device: None Wheelchair Training Does the Pt Use a Wheelchair?: No Wheel 50 ft with 2 turns (QC): 9 Wheel 150 ft (QC): 9 Type of Wheelchair: N/A Stair Training Stair Training: Handrails/: No handrail #of Steps: 12 1 Step (curb) (QC): 4 4 Steps (QC): 4 12 Steps (QC): 4 Stairs: Pattern: Step to Balance Picking up an Object (QC): 4 Special Test Comments KU standing balance scale = 4/5 Treatments QCs and family training completed on this date with spouse, who requests pt d/c tomorrow (06/26/23). Pt completed functional transfers and bed mobility with Mod I. Pt ambulated 240ft with no AD and CGA/SBA. Pt completed 12 steps with CGA. Pt completed seated B LE Ther Ex x 15 reps with the red Tband. After treatment session, pt sitting in the recliner with call light in reach, spouse present, and all needs met. Assessment Current Status: Good Progress Pt tolerated PT well with good effort. Pt has progressed well and met all set goals. Spouse denies questions or concerns about d/c. PT Short Term Goals Short Term Goals Time Frame: Jun 24, 2023 PT Advertising Traffic Manager Goals Prison Goals PT Prison Goals Time Frame: Jul 02, 2023 Roll Left & Right (QC): 6 (Pt will be Mod I with bed mobility and transfers. ) Sit to Lying (QC): 6 (Pt will be Mod I with bed mobility and transfers. ) Lying-Sitting on Side/Bed(QC): 6 (Pt will be Mod I with bed mobility and transfers. ) Sit to Stand (QC): 6 (Pt will be Mod I with bed mobility and transfers. ) Chair/Bgn-gz-Byzdm Xfer(QC): 6 (Pt will be Mod I with bed mobility and trans fers. ) Toilet Transfer (QC): 6 (Pt will be Mod I with bed mobility and transfers. ) Car Transfer (QC): 6 (Pt will be Mod I with bed mobility and transfers. ) Does the Patient Walk: Yes Walk 10 feet (QC): 4 (Pt will be SBA for walking and stairs to safely return home with spouse. ) Walk 50ft with 2 Turns (QC): 4 (Pt will be SBA for walking and stairs to safely return home with spouse. ) Walk 150 ft (QC): 4 (Pt will be SBA for walking and stairs to safely return home with spouse. ) Walking 10ft on Uneven Surface: 4 (Pt will be SBA for walking and stairs to safely return home with spouse. ) 1 Step (curb) (QC): 4 (Pt will be SBA for walking and stairs to safely return home with spouse. ) 4 Steps (QC): 4 (Pt will be SBA for walking and stairs to safely return home with spouse. ) 12 Steps (QC): 4 (Pt will be SBA for walking and stairs to safely return home with spouse. ) Picking up an Object (QC): 4 (Pt will be SBA for walking and stairs to safely return home with spouse. ) Does the Pt use WC or Scooter?: No Wheel 50 feet with 2 turns (QC: 9 Type: N/A Wheel 150 feet: 9 Type: N/A PT Plan Problem List Problem List: Activity Tolerance, Functional Strength, Safety, Balance, Gait, Transfer, Bed Mobility, ROM Treatment/Plan Treatment Plan: Continue Plan of Care Treatment Plan: Bed Mobility, Concurrent Therapy, Education, Functional Activity Jemal, Functional Strength, Group Therapy, Gait, Safety, Therapeutic Exercise, Transfers Treatment Duration: Jul 02, 2023 Frequency: At least 5 of 7 days/Wk (IRF) Estimated Hrs Per Day: 1.5 hours per day Patient and/or Family Agrees t: Yes Safety Risks/Education Patient Education: Gait Training, Transfer Techniques, Steps, Correct Positioning, Safety Issues Teaching Recipient: Patient, Significant Other Teaching Methods: Demonstration, Discussion Response to Teaching: Verbalize Understanding, Return Demonstration, Reinforcement Needed Discharge Recommendations Therapy Discharge Recommendati: Home & Family, Post Acute PT Equpiment Recommendations-D/C: None Discharge Status/Home Program Cont per POC; D/C to home tomorrow 06/26/23 Barriers to Progress Cognition/safety Target Placement Home with spouse Time Time In: 1000 Time Out: 1100 DATE: Jun 25, 2023 Total Billed Treatment Time: 60 Total Billed Treatment 60 min 1 visit EX x 1 FA x 1 GT x 2 ALEC CEJA PT Jun 25, 2023 10:14
--- NOTE | 2023-06-25 13:40 | Physical Therapy Daily Note ---
PT Daily Note-Current Subjective Pt is agreeable to PT. Denies pain. Pain Numeric Pain Scale: 0-No Pain Location: No Pain Reported Section J - Health Conditions 1. Rarely or not at all 2. Occasionally 3. Frequently 4. Almost constantly 8. Unable to answer Pain Effect on Sleep: 1 Pain Interference with Therapy: 1 Pain Interference w/Day-to-Day: 1 Transfers SCALE: Activities may be completed with or without assistive devices. 4-Uhsudotlyz-jooswrl completes the activity by him/herself with no assistance from a helper. 5-Set-up or Clean-up Assistance-helper sets up or cleans up; patient completes activity. [place] assists only prior to or following the activity. 4-Supervision or Touching Assistance-helper provides verbal cues and/or touching/steadying and/or contact guard assistance as patient completes ac tivity. Assistance may be provided throughout the activity or intermittently. 3-Partial/Moderate Assistance-helper does LESS THAN HALF the effort. [place] lifts, holds or supports trunk or limbs, but provides less than half the effort. 2-Substantial/Maximal Assistance-helper does MORE THAN HALF the effort. [place] lifts or holds trunk or limbs and provides more than half the effort. 0-Vvmevdbxn-sqdpak does ALL the effort. Patient does none of the effort to complete the activity. Or, the assistance of 2 or more helpers is required for the patient to complete the activity. If activity was not attempted, code reason: 7-Patient Refused. 9-Not Applicable-not attempted and the patient did not perform the activity before the current illness, exacerbation or injury. 10-Not Attempted due to Environmental Limitations-(lack of equipment, weather restraints, etc.). 88-Not Attempted due to Medical Conditions or Safety Concerns. Sit to Stand (QC): 6 Weight Bearing Right Lower Extremity: Right Full Weight Bearing Left Lower Extremity: Left Full Weight Bearing Gait Training Does the Patient Walk?: Yes Distance: 160ft Walk 10 feet (QC): 4 Walk 50 ft with 2 Turns(QC): 4 Walk 150 ft (QC): 4 Gait Persons Needed: 1 Gait Assistive Device: None Wheelchair Training Does the Pt Use a Wheelchair?: No Treatments PT/OT co-tx from [id number] for higher level balance and cognitive tasks during daily functional tasks. PT focusing on B LE strengthening, standing balance, and walking, while OT focusing on B UE strengthening, functional standing balance and ADLs. Pt completed functional transfers with Mod I. Pt completed ~ 6 min of standing balance balloon toss with B UE and CGA. Pt ambulated 160ft with no AD and SBA. Pt completed sit to stand x 10 reps. Pt also completed standing and seated B UE strengthening. Pt left in care of PT. Assessment Current Status: Good Progress Pt tolerated PT well, with good effort PT Short Term Goals Short Term Goals Time Frame: Jun 24, 2023 PT Quebracho Tanner Goals [place] Tanner Goals PT [place] Tanner Goals Time Frame: Jul 02, 2023 Roll Left & Right (QC): 6 (Pt will be Mod I with bed mobility and transfers. ) Sit to Lying (QC): 6 (Pt will be Mod I with bed mobility and transfers. ) Lying-Sitting on Side/Bed(QC): 6 (Pt will be Mod I with bed mobility and transfers. ) Sit to Stand (QC): 6 (Pt will be Mod I with bed mobility and transfers. ) Chair/Sbb-at-Cbqdu Xfer(QC): 6 (Pt will be Mod I with bed mobility and transfers. ) Toilet Transfer (QC): 6 (Pt will be Mod I with bed mobility and transfers. ) Car Transfer (QC): 6 (Pt will be Mod I with bed mobility and transfers. ) Does the Patient Walk: Yes Walk 10 feet (QC): 4 (Pt will be SBA for walking and stairs to safely return home with spouse. ) Walk 50ft with 2 Turns (QC): 4 (Pt will be SBA for walking and stairs to safely return home with spouse. ) Walk 150 ft (QC): 4 (Pt will be SBA for walking and stairs to safely return home with spouse. ) Walking 10ft on Uneven Surface: 4 (Pt will be SBA for walking and stairs to safely return home with spouse. ) 1 Step (curb) (QC): 4 (Pt will be SBA for walking and stairs to safely return home with spouse. ) 4 Steps (QC): 4 (Pt will be SBA for walking and stairs to safely return home with spouse. ) 12 Steps (QC): 4 (Pt will be SBA for walking and stairs to safely return home with spouse. ) Picking up an Object (QC): 4 (Pt will be SBA for walking and stairs to safely return home with spouse. ) Does the Pt use WC or Scooter?: No Wheel 50 feet with 2 turns (QC: 9 Type: N/A Wheel 150 feet: 9 Type: N/A PT Plan Problem List Problem List: Activity Tolerance, Functional Strength, Safety, Balance, Gait, Transfer, Bed Mobility, ROM Treatment/Plan Treatment Plan: Continue Plan of Care Treatment Plan: Bed Mobility, Concurrent Therapy, Education, Functional Activity Jemal, Functional Strength, Group Therapy, Gait, Safety, Therapeutic E xercise, Transfers Treatment Duration: Jul 02, 2023 Frequency: At least 5 of 7 days/Wk (IRF) Estimated Hrs Per Day: 1.5 hours per day Patient and/or Family Agrees t: Yes Safety Risks/Education Patient Education: Gait Training, Transfer Techniques, Correct Positioning, Safety Issues Teaching Recipient: Patient, Significant Other Teaching Methods: Demonstration, Discussion Response to Teaching: Reinforcement Needed Discharge Recommendations Therapy Discharge Recommendati: Home & Family Equpiment Recommendations-D/C: None Discharge Status/Home Program cont per POC Barriers to Progress Cognition, strength, balance, endurance Target Placement Home with spouse Time Time In: 1300 Time Out: 1330 DATE: Jun 25, 2023 Total Billed Treatment Time: 30 Total Billed Treatment 30 min co-tx from [id number] 1 visit FA x 1 GT x 1 ALEC CEJA PT Jun 25, 2023 13:40
--- NOTE | 2023-06-25 14:14 | Occupational Ther Daily Note ---
OT Current Status-Daily Note Subjective Pt consented to OT session this P.M. Co-treatment with PT secondary to decreased endurance, activity tolerance, and the need of a second person for safety to increase (I) with functional tasks and to decrease the burden of care. PT focusing on functional mobility and gait while OT focusing on ADLs, assisting w ith standing and strengthening BUE's. Pain Numeric Pain Scale: 0-No Pain Location: No Pain Reported ADL-Treatment Therapy Code Descriptions/Definitions Functional [place] Measure: 0=Not Assessed/NA 4=Minimal Assistance 1=Total Assistance 5=Supervision or Setup 2=Maximal Assistance 6=Modified [place] 3=Moderate Assistance 7=Complete IndependenceSCALE: Activities may be completed with or without assistive devices. 5-Ilthpvblvk-hklmoem completes the activity by him/herself with no assistance from a helper. 5-Set-up or Clean-up Assistance-helper sets up or cleans up; patient completes activity. [place] assists only prior to or following the activity. 4-Supervision or Touching Assistance-helper provides verbal cues and/or touching/steadying and/or contact guard assistance as patient completes activity. Assistance may be provided throughout the activity or intermittently. 3-Partial/Moderate Assistance-helper does LESS THAN HALF the effort. [place] lifts, holds or supports trunk or limbs, but provides less than half the effort. 2-Substantial/Maximal Assistance-helper does MORE THAN HALF the effort. [place] lifts or holds trunk or limbs and provides more than half the effort. 0-Dghoiyyxb-twyxrm does ALL the effort. Patient does none of the effort to complete the activity. Or, the assistance of 2 or more helpers is required for the patient to complete the activity. If activity was not attempted, code reason: 7-Patient Refused. 9-Not Applicable-not attempted and the patient did not perform the activity before the current illness, exacerbation or injury. 10-Not Attempted due to Environmental Limitations-(lack of equipment, weather restraints, etc.). 88-Not Attempted due to Medical Conditions or Safety Concerns. Other Treatment Refer to PT's note for functional mobility performed during session. Pt performed standing activity with green flexbar performing 15-20 reps x 1 set performing pronation/supination and wrist flex/ext to increase BUE strength, activity tolerance, endurance, standing tolerance, and static standing balance to increase (I) with ADLs and IADLs. No pain reported while performing exercises. Seated rest break needed afterwards secondary to fatigue. Pt performed seated BUE strengthening ex's with red theraband performing chest press and horizontal abduction with pt performing 1 set x 10 reps to increase BUE strength, activity tolerance, and endurance to increase (I) with ADLs and IADLs. Intermittent rest breaks needed in between sets secondary to fatigue. Pt performed seated activity with geoboard and large pegs while following a simple pattern to increase executive functioning skills, FMC/dexterity, and activity tolerance. Activity performed to improve (I) with ADLs. Pt required min verbal cues to complete task successfully. Education OT Patient Education: Energy conservation, Exercise program, Home exercise program, Instructions to caregiver, Modified ADL techniques, Progress toward Goal/Update tx plan, Purpose of tx/functional activities, Rehab process, Safety issues, Transfer techniques Teaching Recipient: Patient, Family Teaching Methods: Demonstration, Discussion Response to Teaching: Verbalize Understanding, Return Demonstration, Reinforcement Needed OT Blackjack Supervisor Goals Blackjack Supervisor Goals Acute change in mental status: 0 Inattention: 0 Disorganized thinkin Altered level of consciousness: 0 Eating (QC): 6 (Not met) Oral Hygiene (QC): 6 (Not met) Toileting Hygiene (QC): 4 (Met) Shower/Bathe Self (QC): 4 (Met) Upper Body Dressing (QC): 5 (Not met) Lower Body Dressing (QC): 4 (Met) On/Off Footwear (QC): 5 (Met) 1=Demonstrate adherence to instructed precautions during ADL tasks. 2=Patient will verbalize/demonstrate understanding of assistive devices/modifications for ADL. 3=Patient will improve strength/tolerance for activity to enable patient to perform ADL's. OT Education/Plan Problem List/Assessment Assessment: Decreased Activ Tolerance, Decreased Safety Aware, Decreased UE Strength, Impaired Cognition, Impaired Funct Balance, Impaired I ADL's, Impaired Self-Care Skills Discharge Recommendations Plan/Recommendations: Continue POC Treatment Plan/Plan of Care Treatment,Training & Education: Yes Patient would benefit from OT for education, treatment and training to promote independence in ADL's, mobility, safety and/or upper extremity function for ADL's. Plan of Care: ADL Retraining, Caregiver Training, Cognitive Retraining, Functional Mobility, Group Exercise/Act as Ind, UE Funct Exercise/Act Treatment Duration: Jun 25, 2023 Frequency: At least 5 of 7 days/Wk (IRF) Estimated Hrs Per Day: 1.5 hours per day Agreement: Yes Rehab Potential: Good Ending session, pt remained seated in bedside chair with needs/call light in reach and at bedside. Time Start Time: 13:00 Stop Time: 13:45 DATE: Jun 25, 2023 Total Time Billed (hr/min): 45 Billed Treatment Time 45 minutes Co-treat with PT for 30 minutes (13:00 - 13:30) FA 2 EX 1 CHAS VILLANUEVA OT Jun 25, 2023 14:14
[2023-06-25] MEDS: warFARin 2.5 MG (COUMADIN) TAB PO SCH (18:03)
[2023-06-25 20:17] VITALS: BP 123/74
[2023-06-25] MEDS: CITALOPRAM 20 MG TABLET PO SCH (21:33)
[2023-06-25] MEDS: DONEPEZIL 10 MG TABLET PO SCH (21:33)
--- NOTE | 2023-06-26 07:47 | Discharge Summary ---
Diagnosis/Chief Complaint Date of Admission Jun 18, 2023 at 13:10 Date of Discharge Discharge Date: Jun 26, 2023 Discharge Diagnosis Assessment: Myopathy COVID-19 Altered mental status Dementia Pacemaker Valve replacement Warfarin for anticoagulation Chronic kidney disease Gout Dehydration on admit Cardiomyopathy on Entresto Plan: PT and OT Home meds Monitor closely 06/19/2023: Monitor O2 Urinary incontinence management 06/20/2023: Supportive care Incontinence care 06/21/2023: Monitor closely Bladder emptying schedule 06/22/2023: Supportive care Hold Coumadin today 06/23/2023: Supportive care we will continue Monitor closely 06/24/2023: Supportive care Monitor closely 06/25/2023: Discharge home tomorrow (1) Myopathy (2) COVID-19 (3) Altered mental status Discharge Summary Discharge Physical Examination Allergies: Coded Allergies: No Known Drug Allergies (Unverified , 08/02/10) Vitals & I&Os Vital Signs Date Time Temp Pulse Resp B/P (MAP) Pulse Ox O2 Delivery O2 Flow Rate FiO2 06/26/23 11:18 35.7 68 16 109/67 98 Room Air General Appearance: Alert, Oriented X3, Cooperative Respiratory: Clear to Auscultation Cardiovascular: Regular Rate Psych/Mental Status: Mental Status NL Hospital Course Was the Problem List Reviewed?: Yes Uneventful course after he was admitted following COVID related debility. Overall he did well and was maintained in isolation. He had no clinical decompensation during hospital course. Labs remained stable. INR monitored closely. He had no issues during his visit and was deemed stable for DC and I will see him in clinic on Friday at 445pm. Labs (last 24 hrs) Laboratory Tests 06/19/23 05:17: White Blood Count 6.1, Red Blood Count 4.97, Hemoglobin 16.1, Hematocrit 47, Mean Corpuscular Volume 95, Mean Corpuscular Hemoglobin 32, Mean Corpuscular Hemoglobin Concent 34, Red Cell Distribution Width 13.6, Platelet Count 94L, Mean Platelet Volume 9.8, Immature Granulocyte % (Auto) 0, Neutrophils (%) (Auto) 74, Lymphocytes (%) (Auto) 19, Monocytes (%) (Auto) 7, Eosinophils (%) (Auto) 0, Basophils (%) (Auto) 0, Neutrophils # (Auto) 4.5, Lymphocytes # (Auto) 1.2, Monocytes # (Auto) 0.4, Eosinophils # (Auto) 0.0, Basophils # (Auto) 0.0, Immature Granulocyte # (Auto) 0.0, Prothrombin Time 27.1H, INR Comment 2.5H, Sodium Level 139, Potassium Level 4.4, Chloride Level 109H, Carbon Dioxide Level 21, Anion Gap 9, Blood Urea Nitrogen 39H, Creatinine 1.17, Estimat Glomerular Filtration Rate 65, BUN/Creatinine Ratio 33, Glucose Level 93, Calcium Level 9.0, Corrected Calcium 9.4, Total Bilirubin 0.8, Aspartate Amino Transf (AST/SGOT) 32, Alanine Aminotransferase (ALT/SGPT) 22, Alkaline Phosphatase 53, Total Protein 5.9L, Albumin 3.5 06/22/23 04:55: White Blood Count 4.1L, Red Blood Count 4.83, Hemoglobin 15.7, Hematocrit 44, Mean Corpuscular Volume 92, Mean Corpuscular Hemoglobin 33, Mean Corpuscular Hemoglobin Concent 35, Red Cell Distribution Width 13.4, Platelet Count 114L, Me an Platelet Volume 9.8, Immature Granulocyte % (Auto) 2, Neutrophils (%) (Auto) 47, Lymphocytes (%) (Auto) 37, Monocytes (%) (Auto) 12, Eosinophils (%) (Auto) 1, Basophils (%) (Auto) 0, Neutrophils # (Auto) 1.9, Lymphocytes # (Auto) 1.6, Monocytes # (Auto) 0.5, Eosinophils # (Auto) 0.0, Basophils # (Auto) 0.0, Immature Granulocyte # (Auto) 0.1, Prothrombin Time 34.0H, INR Comment 3.4H, Sodium Level 139, Potassium Level 4.1, Chloride Level 106, Carbon Dioxide Level 25, Anion Gap 8, Blood Urea Nitrogen 25H, Creatinine 1.21, Estimat Glomerular Filtration Rate 62, BUN/Creatinine Ratio 21, Glucose Level 94, Calcium Level 8.6, Corrected Calcium 9.2, Total Bilirubin 1.1H, Aspartate Amino Transf (AST/SGOT) 27, Alanine Aminotransferase (ALT/SGPT) 29, Alkaline Phosphatase 54, Total Protein 5.7L, Albumin 3.3, Percent Immature Platelet Fraction 3.2 06/23/23 05:52: Prothrombin Time 29.4H, INR Comment 2.8H 06/25/23 05:39: Prothrombin Time 26.4H, INR Comment 2.4H Pending Labs Laboratory Tests 06/19/23 05:17: White Blood Count 6.1, Red Blood Count 4.97, Hemoglobin 16.1, Hematocrit 47, Mean Corpuscular Volume 95, Mean Corpuscular Hemoglobin 32, Mean Corpuscular Hemoglobin Concent 34, Red Cell Distribution Width 13.6, Platelet Count 94, Mean Platelet Volume 9.8, Immature Granulocyte % (Auto) 0, Neutrophils (%) (Auto) 74, Lymphocytes (%) (Auto) 19, Monocytes (%) (Auto) 7, Eosinophils (%) (Auto) 0, Basophils (%) (Auto) 0, Neutrophils # (Auto) 4.5, Lymphocytes # (Auto) 1.2, Monocytes # (Auto) 0.4, Eosinophils # (Auto) 0.0, Basophils # (Auto) 0.0, Immature Granulocyte # (Auto) 0.0, Prothrombin Time 27.1, INR Comment 2.5, Sodium Level 139, Potassium Level 4.4, Chloride Level 109, Carbon Dioxide Level 21, Anion Gap 9, Blood Urea Nitrogen 39, Creatinine 1.17, Estimat Glomerular Filtration Rate 65, BUN/Creatinine Ratio 33, Glucose Level 93, Calcium Level 9.0, Corrected Calcium 9.4, Total Bilirubin 0.8, Aspartate Amino Transf (AST/SGOT) 32, Alanine Aminotransferase (ALT/SGPT) 22, Alkaline Phosphatase 53, Total Protein 5.9, Albumin 3.5 06/22/23 04:55: White Blood Count 4.1, Red Blood Count 4.83, Hemoglobin 15.7, Hematocrit 44, Mean Corpuscular Volume 92, Mean Corpuscular Hemoglobin 33, Mean Corpuscular Hemoglobin Concent 35, Red Cell Distribution Width 13.4, Platelet Count 114, Mean Platelet Volume 9.8, Immature Granulocyte % (Auto) 2, Neutrophils (%) (Auto) 47, Lymphocytes (%) (Auto) 37, Monocytes (%) (Auto) 12, Eosinophils (%) (Auto) 1, Basophils (%) (Auto) 0, Neutrophils # (Auto) 1.9, Lymphocytes # (Auto) 1.6, Monocytes # (Auto) 0.5, Eosinophils # (Auto) 0.0, Basophils # (Auto) 0.0, Immature Granulocyte # (Auto) 0.1, Prothrombin Time 34.0, INR Comment 3.4, Sodium Level 139, Potassium Level 4.1, Chloride Level 106, Carbon Dioxide Level 25, Anion Gap 8, Blood Urea Nitrogen 25, Creatinine 1.21, Estimat Glomerular Binh tration Rate 62, BUN/Creatinine Ratio 21, Glucose Level 94, Calcium Level 8.6, Corrected Calcium 9.2, Total Bilirubin 1.1, Aspartate Amino Transf (AST/SGOT) 27, Alanine Aminotransferase (ALT/SGPT) 29, Alkaline Phosphatase 54, Total Protein 5.7, Albumin 3.3, Percent Immature Platelet Fraction 3.2 06/23/23 05:52: Prothrombin Time 29.4, INR Comment 2.8 06/25/23 05:39: Prothrombin Time 26.4, INR Comment 2.4 Discharge Home Medications: Active Scripts Active Reported Furosemide 40 Mg Tablet 20 Mg PO Q48H ALTERNATES WITH SPIRONOLACTONE Entresto 49 mg-51 mg Tablet (Sacubitril/Valsartan) 49 Mg-51 Mg Tablet 0.5 Ea PO BID Spironolactone 25 Mg Tablet 12.5 Mg PO Q48H TAKES OF A 25MG ALTERNATES WITH FUROSEMIDE Carvedilol 3.125 Mg Tablet 3.125 Mg PO BID Donepezil HCl 10 Mg Tablet 10 Mg PO HS Mexiletine HCl 150 Mg Cap 150 Mg PO BID Warfarin Sodium 5 Mg Tablet 2.5 Mg PO WE,FR TAKES OF A 5MG Warfarin Sodium 5 Mg Tablet 5 Mg PO DIOP,MO,,,SA Allopurinol 100 Mg Tablet 100 Mg PO BID Citalopram HBr (Citalopram Hydrobromide) 20 Mg Tablet 20 Mg PO HS Instructions to patient/family Please see electronic discharge instructions given to patient. Diagnosis/Problems Diagnosis/Problems (1) Myopathy (2) COVID-19 (3) Altered mental status DEE KAYE DO Jun 26, 2023 07:47
--- NOTE | 2023-06-26 07:47 | D/C HH Face to Face Order ---
D/C Face to Face Orders Reconcile Patient Problems Problems Reviewed?: Yes Instructions for Patient Via [facility], Patient Instructions/FollowUp: dr kaye 1 week Physician to follow Patient: mehnaz Discharge Diet for Home: No Restrictions Patient Problems: covid Patient Data-Allergies,Ht & Wt Patient Allergies: Coded Allergies: No Known Drug Allergies (Unverified , 08/02/10) Home Health Need/Face to Face Date of Face to Face: Jun 26, 2023 Clinical Findings: Generalized weakness and fatigue, Muscle weakness I have seen Pt [id number]: Yes Discharged To: Home Diagnosis/Conditions: covid Patient is Homebound due to: CognItive deficits, Ashley fall risk due to instabilty, Muscle weakness Homebound Status Due to the above stated illness, injury or surgical procedure (medical condition or diagnosis) and associated clinical findings, the patient is homebound because of his/her inability to leave home except with aid of a supportive device and/or person AND leaving the home requires a considerable and taxing effort or is medically contraindicated. Pt req the following assistanc: [facility] Nursing Orders Home Health Services Order: Nursing Services, Infection Control Specialist-Evaluate & Treat, Physical Therapy-Evaluate & Treat Certify Stmt I certify that this patient is under my care and that I, a nurse practitioner or a physician; a metal moulder's assistant working with me, had a face to face encounter that - meets the physician face to face encounter requirements with this patient as dated. DEE KAYE DO Jun 26, 2023 07:47
[2023-06-26 07:53] VITALS: BP 110/77
[2023-06-26] MEDS: SPIRONOLACTONE 25 MG TABLET PO SCH (09:04)
[2023-06-26] MEDS: MEXILETINE 150 MG CAPSULE PO SCH (09:04)
[2023-06-26] MEDS: ALLOPURINOL 100 MG TABLET PO SCH (09:04)
[2023-06-26] MEDS: SENNA W/DOCUSATE TABLET PO SCH (09:05)
[2023-06-26] MEDS: SACUBITRIL/VALSARTAN 24/26 MG TABLET PO SCH (09:05)
[2023-06-26] MEDS: carvediloL 3.125 MG TABLET PO SCH (09:05)
[2023-06-26] MEDS: DOCUSATE SODIUM 100 MG CAPSULE PO SCH (09:05)
[2023-06-26 09:07] VITALS: BP 109/67
[2023-06-26 11:18] VITALS: BP 109/67
--- NOTE | 2023-06-26 14:17 | Therapy Team Discharge Summary ---
Therapy Discharge Summary Discharge Recommendations Date of Discharge Jun 26, 2023 at 11:18 Therapy D/C Recommendations: Home w/ Family Support Physical Therapy Pt is a 73 y/o male who went to the ER on 06/16/23 for COVID+/weakness/AMS; Admitted to ARU on 06/18/23. At [facility], pt was Mod I with no AD, but furniture surfing; Not driving. Upon PT eval, pt was SBA for bed mobility and functional transfers. Pt was only able to ambulate ~ 15ft with the FWW and Min A, as well as complete 1 step with Min/Mod A x 2 for balance. Pt was isolated to his room, due to covid, but PT focused on B LE strength, balance, safety, endurance, functional mobility, and overall Ind. Pt progressed well with PT and met all set goals. Pt d/c from ARU on 06/26/23 to home with spouse; D/C from PT at this time. Roll Left to Right (QC): 6 Sit to Lying (QC): 6 Lying to Sitting/Side of Bed(Q: 6 Sit to Stand (QC): 6 Chair/[id number] Xfer(QC): 6 Toilet Transfer (QC): 6 Car Transfer (QC): 6 Does the Patient Walk: Yes Mode of Locomotion: Walk Anticipated Mode of Locomotion: Walk Walk 10 feet (QC): 4 Walk 50 ft with 2 Turns(QC): 4 Walk 150 ft (QC): 4 Walking 10ft on uneven surface: 4 Gait Assistive Device: None Does the Pt Use a Wheelchair: No Wheel 50 ft with 2 turns (QC): 9 Wheel 150 ft (QC): 9 Type of Wheelchair: N/A #of Steps: 12 1 Step (curb) (QC): 4 4 Steps (QC): 4 12 Steps (QC): 4 Walking Assistive Device: Walker Balance Sitting Static: Good Balance Sitting Dynamic: Good Balance-Standing Static: Fair Picking up an Object (QC): 4 Occupational Therapy Decreased Activ Tolerance, Decreased Safety Aware, Decreased UE Strength, Impaired Cognition, Impaired Funct Balance, Impaired I ADL's, Impaired Self-Care Skills Eating (QC): 5 (Set-up A for feeding ) Oral Hygiene (QC): 4 (SBA for oral care standing at sink with pt requiring verbal cues for sequencing) Shower/Bathe Self (QC): 4 (SBA for bathing seated on built in shower chair in walk in shower with pt utilizing GB's and hand held shower head. Pt utilized visual cue card to sequence through bathing.) Upper Body Dressing (QC): 4 (SBA for UBD with pt retrieving shirt from cabinet, but required verbal cues for donning shirt seated in WC) Lower Body Dressing (QC): 4 (SBA for LBD with pt requiring verbal cues fro safety when donning/doffing brief and pants with pt trying to step into pants/brief while standing. Verbal cues needed with pt threading the wrong leg into pants leg. ) On/Off Footwear (QC): 5 (Set-up A for donning/doffing socks seated in WC) Toileting Hygiene (QC): 4 (SBA for throughness and verbal cues needed for managing clothes and cleaning gely area/buttocks) PT Shelter Goals Shelter Goals PT Customer Resource Specialist Goals Time Frame: Jul 02, 2023 Roll Left to Right (QC): 6 (Pt will be Mod I with bed mobility and transfers. ) Sit to Lying (QC): 6 (Pt will be Mod I with bed mobility and transfers. ) Lying-Sitting on Side/Bed(QC): 6 (Pt will be Mod I with bed mobility and transfers. ) Sit to Stand (QC): 6 (Pt will be Mod I with bed mobility and transfers. ) Chair/[id number] Xfer(QC): 6 (Pt will be Mod I with bed mobility and transfers. ) Toilet/Commode Transfer (QC): 6 (Pt will be Mod I with bed mobility and transfers. ) Car Transfer (QC): 6 (Pt will be Mod I with bed mobility and transfers. ) Does the Patient Walk: Yes Walk 10 feet (QC): 4 (Pt will be SBA for walking and stairs to safely return home with spouse. ) Walk 10ft-Uneven Surface(QC): 4 (Pt will be SBA for walking and stairs to s afely return home with spouse. ) Walk 50ft with 2 Turns (QC): 4 (Pt will be SBA for walking and stairs to safely return home with spouse. ) Walk 150 ft (QC): 4 (Pt will be SBA for walking and stairs to safely return home with spouse. ) Does the Pt use WC or Scooter?: No Wheel 50 feet with 2 turns (QC: 9 Type: N/A Wheel 150 feet: 9 Type: N/A 1 Step (curb) (QC): 4 (Pt will be SBA for walking and stairs to safely return home with spouse. ) 4 Steps (QC): 4 (Pt will be SBA for walking and stairs to safely return home with spouse. ) 12 Steps (QC): 4 (Pt will be SBA for walking and stairs to safely return home with spouse. ) Picking up an Object (QC): 4 (Pt will be SBA for walking and stairs to safely return home with spouse. ) OT Customer Resource Specialist Goals Customer Resource Specialist Goals Acute change in mental status: 0 Inattention: 0 Disorganized thinkin Altered level of consciousness: 0 Eating (QC): 6 (Not met) Oral Hygiene (QC): 6 (Not met) Toileting Hygiene (QC): 4 (Met) Shower/Bathe Self (QC): 4 (Met) Upper Body Dressing (QC): 5 (Not met) Lower Body Dressing (QC): 4 (Met) On/Off Footwear (QC): 5 (Met) 1=Demonstrate adherence to instructed precautions during ADL tasks. 2=Patient will verbalize/demonstrate understanding of assistive devices/modifications for ADL. 3=Patient will improve strength/tolerance for activity to enable patient to perform ADL's. ALEC CEJA PT Jun 26, 2023 14:17
== END 2023-06-26 11:18 | disposition home health service (06) | DRG 91 ==
PROVIDERS: ADMIT Internal Medicine; ATTEND Internal Medicine
PROC: 8E0ZXY6 Isolation (ICD-10-PCS; principal; 2023-06-18)
DX: G72.81 Critical illness myopathy (principal); U07.1 COVID-19; I42.9 Cardiomyopathy, unspecified; R32 Unspecified urinary incontinence; F03.90 Unspecified dementia, unspecified severity, without behavioral disturbance, psychotic disturbance, mood disturbance, and anxiety; I12.9 Hypertensive chronic kidney disease with stage 1 through stage 4 chronic kidney disease, or unspecified chronic kidney disease; N18.9 Chronic kidney disease, unspecified; I48.91 Unspecified atrial fibrillation; E78.00 Pure hypercholesterolemia, unspecified; M10.9 Gout, unspecified; E86.0 Dehydration; I25.10 Atherosclerotic heart disease of native coronary artery without angina pectoris; Z79.01 Long term (current) use of anticoagulants; Z95.2 Presence of prosthetic heart valve; Z95.0 Presence of cardiac pacemaker; Z87.891 Personal history of nicotine dependence
CPT/HCPCS: 36415; 80053; 85025; 85610; 94664